=== PATIENT | female | born 1945 | race Caucasian/White ===

== ENCOUNTER → 2016-12-04 | Outpatient (CLI) | payer MEDICARE ==
--- NOTE | 2016-12-05 11:31 | MM ---
Reason for exam: screening (asymptomatic). Last mammogram was performed 1 year and 1 month ago. History: Patient is postmenopausal. Family history of breast cancer in maternal grandmother. Benign excisional biopsy of the left breast, March 14, 2000. 2 excisional biopsies of the left breast. Physical Findings: A clinical breast exam by your physician is recommended on an annual basis and results should be correlated with mammographic findings. MG 3D Screening Mammo W/Cad Bilateral CC and MLO view(s) were taken. Prior study comparison: October 25, 2015, bilateral MG 3d screening mammo w/cad. October 05, 2014, bilateral MG screening mammo w CAD. There are scattered fibroglandular densities. Finding #1: There is a 11 mm equal density (isodense), oval mass in the lower inner quadrant of the right breast. Finding #2: There are typically benign calcifications in the left breast. There is a chronic nodularity in the left breast. There are grouped calcifications in the lower inner left breast. Increase in size since October 25, 2015 and October 05, 2014. ASSESSMENT: Incomplete: need additional imaging evaluation, BI-RAD 0 RECOMMENDATION: Special view mammogram of both breasts. [facility] will attempt to contact patient to return for supplemental views.
== END | disposition home or self-care (01) ==
LOC: RADMAMWWP 10:53
PROVIDERS: ATTEND Internal Medicine
DX: Z12.31 Encounter for screening mammogram for malignant neoplasm of breast (principal); R92.2 Inconclusive mammogram
CPT/HCPCS: 77063; G0202

== ENCOUNTER → 2016-12-25 | Outpatient (CLI) | payer MEDICARE ==
--- NOTE | 2016-12-25 11:45 | MM ---
Reason for exam: additional evaluation requested from abnormal screening. Last mammogram was performed 1 month ago. History: Patient is postmenopausal. Family history of breast cancer in maternal grandmother. Benign excisional biopsy of the left breast, March 14, 2000. 2 excisional biopsies of the left breast, 1999. Physical Findings: Nurse Summary: 1 x 1cm nodule in the right breast at 5 o'clock (nurse ts). MG 3D Work Up W/Cad JAGDISH Bilateral ML view(s) were taken. Spot compression CC and spot compression ML view(s) were taken of the right breast. CC with magnification and ML with magnification view(s) were taken of the left breast. Prior study comparison: December 04, 2016, bilateral MG 3d screening mammo w/cad. October 25, 2015, bilateral MG 3d screening mammo w/cad. October 05, 2014, bilateral MG screening mammo w CAD. October 03, 2013, bilateral MG screening mammo w CAD. September 13, 2012, bilateral digital screening mammo w/CAD. August 25, 2011, bilateral digital screening mammo w/CAD. Finding: There are typically benign calcifications that have been sable over multiple exams. No significant changes in finding since December 04, 2016, October 25, 2015, August 25, 2011, October 05, 2014, October 03, 2013, and September 13, 2012. These results were verbally communicated with the patient and result sheet given to the patient on 12/25/16. ASSESSMENT: Benign, BI-RAD 2 RECOMMENDATION: Return to routine screening mammogram schedule for both breasts.
== END | disposition home or self-care (01) ==
LOC: RADMAMWWP 10:40
PROVIDERS: ATTEND Internal Medicine
DX: R92.8 Other abnormal and inconclusive findings on diagnostic imaging of breast (principal)
CPT/HCPCS: G0204; G0279

== ENCOUNTER 2017-06-03 10:03 | Inpatient (IN) | payer MEDICARE ==
[2017-06-03] MEDS ORDERED: SODIUM CHLORIDE 0.9% 1,000 ML IV STA (10:26)
[2017-06-03] MEDS ORDERED: IBUPROFEN 600 MG TAB PO STA (10:26)
[2017-06-03] MEDS: ACETAMINOPHEN TAB 500 MG TAB PO STA (10:33)
--- NOTE | 2017-06-03 10:33 | ED ---
General Adult HPI - General Chief complaint: Weakness Stated complaint: poss dehydration Time Seen by Provider: 06/03/17 10:05 Source: patient, RN notes reviewed Mode of arrival: ambulatory Limitations: no limitations - History of Present Illness Initial comments: This is a 71-year-old female presents emergency department with past medical history significant for uterine cancer. Patient states on Sunday she gets chemotherapy. Patient states since that time she's felt weak and lightheaded when she stands and just fatigued. Patient denies any specific area of pain. Patient denies headache patient denies numbness weakness. Patient denies chest pain palpitations difficulty breathing or shortness of breath. Patient denies any recent fever chills or cough. Patient denies abdominal pain patient denies nausea or vomiting patient states she does occasionally have some diarrhea however. - Related Data Home Medications Medication Instructions Recorded Confirmed Acetaminophen Tab [Tylenol Tab] 650 mg PO Q4H PRN 06/03/17 06/03/17 Calcium Carbonate/Vitamin D3 1 tab PO DAILY 06/03/17 06/03/17 [Calcium 600-Vit D3 400 Caplet] Lisinopril [Zestril] 20 mg PO DAILY 06/03/17 06/03/17 Loperamide [Imodium] 2 mg PO QID PRN 06/03/17 06/03/17 Multivitamins, Thera [Multivitamin 1 tab PO DAILY 06/03/17 06/03/17 (formulary)] Ondansetron [Zofran] 4 mg PO Q8HR PRN 06/03/17 06/03/17 Allergies Allergy/AdvReac Type Severity Reaction Status Date / Time Penicillins Allergy Rash/Hives Verified 06/03/17 10:20 Review of Systems ROS Statement: Those systems with pertinent positive or pertinent negative responses have been documented in the HPI. ROS Other: All systems not noted in ROS Statement are negative. Past Medical History Past Medical History: Cancer, Hypertension History of Any Multi-Drug Resistant Organisms: None Reported Past Surgical History: Cholecystectomy, Hernia Repair Past Psychological History: No Psychological Hx Reported Smoking Status: Never smoker Past Alcohol Use History: None Reported Past Drug Use History: None Reported General Exam - General Exam Comments Initial Comments: GENERAL: Patient is well-developed and well-nourished. Patient is nontoxic and well- hydrated and is in mild distress. ENT: Neck is soft and supple. No significant lymphadenopathy is noted. Oropharynx is clear. Moist mucous membranes. Neck has full range of motion without eliciting any pain. EYES: The sclera were anicteric and conjunctiva were pink and moist. Extraocular movements were intact and pupils were equal round and reactive to light. Eyelids were unremarkable. PULMONARY: Unlabored respirations. Good breath sounds bilaterally. No audible rales rhonchi or wheezing was noted. CARDIOVASCULAR: There is a regular rate and rhythm without any murmurs gallops or rubs. ABDOMEN: Soft and nontender with normal bowel sounds. No palpable organomegaly was noted. There is no palpable pulsatile mass. SKIN: Skin is clear with no lesions or rashes and otherwise unremarkable. NEUROLOGIC: Patient is alert and oriented x3. Cranial nerves II through XII are grossly intact. Motor and sensory are also intact. Normal speech, volume and content. Symmetrical smile. MUSCULOSKELETAL: Normal extremities with adequate strength and full range of motion. No lower extremity swelling or edema. No calf tenderness. LYMPHATICS: No significant lymphadenopathy is noted PSYCHIATRIC: Normal psychiatric evaluation. Limitations: no limitations Course Vital Signs 06/03/17 06/03/17 06/03/17 10:07 10:26 10:55 Temperature 98.7 F 100.6 F H Pulse Rate 70 Pulse Rate [ 82 Sitting] Pulse Rate [ 118 H Standing] Pulse Rate [ 74 Supine] Respiratory 16 Rate Blood Pressure 161/67 Blood Pressure 159/62 [Sitting] Blood Pressure 142/69 [Standing] Blood Pressure 180/83 [Supine] O2 Sat by Pulse 100 Oximetry 06/03/17 11:57 Temperature 97.8 F Pulse Rate 72 Pulse Rate [ Sitting] Pulse Rate [ Standing] Pulse Rate [ Supine] Respiratory 16 Rate Blood Pressure 171/86 Blood Pressure [Sitting] Blood Pressure [Standing] Blood Pressure [Supine] O2 Sat by Pulse 100 Oximetry Medical Decision Making - Medical Decision Making EKG shows a sinus rhythm at 77 bpm with an occasional PACs ND interval is 88 QRS is 60 QT interval 404 QTC is 457. Patient's EKG shows no ST segment elevation or depression or T wave abnormalities are noted patient had hypomagnesemia so I ordered 4 g of magnesium sulfate. Patient's calcium was also low so I gave the patient calcium chloride. Patient a urinary tract infectious I started the patient on Rocephin. I spoke with Dr. Pascual admitted the patient and I wrote admitting orders. - Lab Data Result diagrams: 06/03/17 10:46 06/03/17 10:46 Lab Results 06/03/17 06/03/17 06/03/17 Range/Units 10:46 10:46 10:46 WBC 2.4 L (3.8-10.6) k/uL RBC 3.09 L (3.80-5.40) m/uL Hgb 9.2 L (11.4-16.0) gm/dL Hct 27.8 L (34.0-46.0) % MCV 89.8 (80.0-100.0) fL MCH 29.9 (25.0-35.0) pg MCHC 33.3 (31.0-37.0) g/dL RDW 18.7 H (11.5-15.5) % Plt Count 80 L (150-450) k/uL Neutrophils % 86 % Lymphocytes % 5 % Monocytes % 6 % Eosinophils % 1 % Basophils % 0 % Neutrophils # 2.1 (1.3-7.7) k/uL Lymphocytes # 0.1 L (1.0-4.8) k/uL Monocytes # 0.1 (0-1.0) k/uL Eosinophils # 0.0 (0-0.7) k/uL Basophils # 0.0 (0-0.2) k/uL Anisocytosis Slight PT (9.0-12.0) sec INR (<1.2) APTT (22.0-30.0) sec Sodium 136 L (137-145) mmol/L Potassium 3.8 (3.5-5.1) mmol/L Chloride 94 L (98-107) mmol/L Carbon Dioxide 29 (22-30) mmol/L Anion Gap 13 mmol/L BUN 18 H (7-17) mg/dL Creatinine 1.11 H (0.52-1.04) mg/dL Est GFR (MDRD) Af Amer 58 (>60 ml/min/1.73 sqM) Est GFR (MDRD) Non-Af 48 (>60 ml/min/1.73 sqM) Glucose 129 H (74-99) mg/dL Plasma Lactic Acid Yo (0.7-2.0) mmol/L Calcium 6.8 L (8.4-10.2) mg/dL Magnesium <0.4 L* (1.6-2.3) mg/dL Total Bilirubin 0.5 (0.2-1.3) mg/dL AST 15 (14-36) U/L ALT 19 (9-52) U/L Alkaline Phosphatase 77 (38-126) U/L Total Creatine Kinase 84 (30-135) U/L CK-MB (CK-2) 0.8 (0.0-2.4) ng/mL CK-MB (CK-2) Rel Index 1.0 Troponin I 0.014 (0.000-0.034) ng/mL Total Protein 6.4 (6.3-8.2) g/dL Albumin 3.6 (3.5-5.0) g/dL Urine Color Urine Appearance (Clear) Urine pH (5.0-8.0) Ur Specific [place] (1.001-1.035) Urine Protein (Negative) Urine Glucose (UA) (Negative) Urine Ketones (Negative) Urine Blood (Negative) Urine Nitrite (Negative) Urine Bilirubin (Negative) Urine Urobilinogen (<2.0) mg/dL Ur Leukocyte Esterase (Negative) Urine RBC (0-5) /hpf Urine WBC (0-5) /hpf 06/03/17 06/03/17 06/03/17 Range/Units 10:46 10:46 11:46 WBC (3.8-10.6) k/uL RBC (3.80-5.40) m/uL Hgb (11.4-16.0) gm/dL Hct (34.0-46.0) % MCV (80.0-100.0) fL MCH (25.0-35.0) pg MCHC (31.0-37.0) g/dL RDW (11.5-15.5) % Plt Count (150-450) k/uL Neutrophils % % Lymphocytes % % Monocytes % % Eosinophils % % Basophils % % Neutrophils # (1.3-7.7) k/uL Lymphocytes # (1.0-4.8) k/uL Monocytes # (0-1.0) k/uL Eosinophils # (0-0.7) k/uL Basophils # (0-0.2) k/uL Anisocytosis PT 11.5 (9.0-12.0) sec INR 1.2 H (<1.2) APTT 20.3 L (22.0-30.0) sec Sodium (137-145) mmol/L Potassium (3.5-5.1) mmol/L Chloride (98-107) mmol/L Carbon Dioxide (22-30) mmol/L Anion Gap mmol/L BUN (7-17) mg/dL Creatinine (0.52-1.04) mg/dL Est GFR (MDRD) Af Amer (>60 ml/min/1.73 sqM) Est GFR (MDRD) Non-Af (>60 ml/min/1.73 sqM) Glucose (74-99) mg/dL Plasma Lactic Acid Yo 1.9 (0.7-2.0) mmol/L Calcium (8.4-10.2) mg/dL Magnesium (1.6-2.3) mg/dL Total Bilirubin (0.2-1.3) mg/dL AST (14-36) U/L ALT (9-52) U/L Alkaline Phosphatase (38-126) U/L Total Creatine Kinase (30-135) U/L CK-MB (CK-2) (0.0-2.4) ng/mL CK-MB (CK-2) Rel Index Troponin I (0.000-0.034) ng/mL Total Protein (6.3-8.2) g/dL Albumin (3.5-5.0) g/dL Urine Color Yellow Urine Appearance Cloudy H (Clear) Urine pH 8.0 (5.0-8.0) Ur Specific [place] 1.008 (1.001-1.035) Urine Protein 1+ H (Negative) Urine Glucose (UA) Trace H (Negative) Urine Ketones Negative (Negative) Urine Blood Moderate H (Negative) Urine Nitrite Negative (Negative) Urine Bilirubin Negative (Negative) Urine Urobilinogen <2.0 (<2.0) mg/dL Ur Leukocyte Esterase Large H (Negative) Urine RBC 51 H (0-5) /hpf Urine WBC 131 H (0-5) /hpf Disposition Clinical Impression: Orthostatic hypotension, Hypomagnesemia, Hypocalcemia Disposition: ADMITTED IP TO THIS [facility] Referrals: Yane De Los Santos MD [Primary Care Provider] - 1-2 days Time of Disposition: 12:50
[2017-06-03] MEDS ORDERED: ONDANSETRON ODT 4 MG TAB PO STA (10:38)
[2017-06-03 10:56] LABS: Anisocytosis Slight; Basophils % (A) 0 %; Eosinophils % (A) 1 %; HCT 27.8 % (34.0-46.0); HGB 9.2 gm/dL (11.4-16.0); Lymphocytes # (A) 0.1 k/uL (1.0-4.8); Lymphocytes % (A) 5 %; MCH 29.9 pg (25.0-35.0); MCHC 33.3 g/dL (31.0-37.0); MCV 89.8 fL (80.0-100.0); Mean Platelet Volume 7.8; Monocytes # (A) 0.1 k/uL (0-1.0); Monocytes % (A) 6 %; Neutrophils # (A) 2.1 k/uL (1.3-7.7); Neutrophils % (A) 86 %; RBC 3.09 m/uL (3.80-5.40); RDW 18.7 % (11.5-15.5); WBC 2.4 k/uL (3.8-10.6)
[2017-06-03 11:09] LABS: INR 1.2 (<1.2); Prothrombin Time 11.5 sec (9.0-12.0)
[2017-06-03 11:11] LABS: ALT 19 U/L (9-52); AST 15 U/L (14-36); Albumin 3.6 g/dL (3.5-5.0); Alkaline Phosphatase 77 U/L (38-126); Anion Gap 13 mmol/L; Blood Urea Nitrogen 18 mg/dL (7-17); Calcium 6.8 mg/dL (8.4-10.2); Carbon Dioxide 29 mmol/L (22-30); Chloride 94 mmol/L (98-107); Glucose 129 mg/dL (74-99); Potassium 3.8 mmol/L (3.5-5.1); Sodium 136 mmol/L (137-145); Total Bilirubin 0.5 mg/dL (0.2-1.3); Total Protein 6.4 g/dL (6.3-8.2)
[2017-06-03 11:16] LABS: Partial Thromboplastin Time 20.3 sec (22.0-30.0); Platelet Count 80 k/uL (150-450)
--- NOTE | 2017-06-03 11:17 | XR ---
EXAMINATION TYPE: XR chest 2V DATE OF EXAM: 06/03/2017 COMPARISON: 10/30/2009 INDICATION: Dizziness weakness TECHNIQUE: Frontal and lateral views of the chest are obtained. FINDINGS: The heart size is prominent.. The pulmonary vasculature is normal. The lungs are clear. IMPRESSION: 1. Cardiomegaly. 2. No acute pulmonary process radiographically apparent.
[2017-06-03] MEDS ORDERED: CALCIUM CHLORIDE 100 MG/ML 10 ML SYRINGE IVP STA (11:27)
[2017-06-03 11:29] LABS: Magnesium <0.4 mg/dL (1.6-2.3)
[2017-06-03 11:33] LABS: Creatine Kinase MB 0.8 ng/mL (0.0-2.4); Troponin I 0.014 ng/mL (0.000-0.034)
[2017-06-03] MEDS: MAGNESIUM SULFATE-D5W PMX 1 GM in DEXTROSE/WATER 1 100ML.BAG IVPB SCH ×4 (11:48→17:10)
[2017-06-03 12:22] LABS: Appearance,Urine Cloudy (Clear); Bilirubin,Urine Negative (Negative); Blood,Urine Moderate (Negative); Color,Urine Yellow; Glucose,Urine (UA) Trace (Negative); Ketones,Urine Negative (Negative); Leukocyte Esterase,Urine Large (Negative); Nitrite,Urine Negative (Negative); Protein,Urine 1+ (Negative); RBC,Urine 51 /hpf (0-5); Specific Gravity,Urine 1.008 (1.001-1.035); Urobilinogen,Urine <2.0 mg/dL (<2.0); WBC,Urine 131 /hpf (0-5)
[2017-06-03] MEDS ORDERED: cefTRIAXone IN SWFI 1,000 MG/10 ML SYRINGE IVP STA (12:26)
[2017-06-03] MEDS ORDERED: SODIUM CHLORIDE 0.9% 1,000 ML IV ONE (12:50)
[2017-06-03 16:50] VITALS: BMI 38.0
[2017-06-03] MEDS ORDERED: LOPERAMIDE 2 MG CAP PO PRN (18:28)
[2017-06-03] MEDS ORDERED: ACETAMINOPHEN TAB 325 MG TAB PO PRN (18:28)
[2017-06-04] MEDS ORDERED: Magnesium Replacement Protocol 1 EACH MISC MISCELLANE PRN (05:18)
[2017-06-04] MEDS: MAGNESIUM SULFATE-D5W PMX 1 GM in DEXTROSE/WATER 1 100ML.BAG IVPB SCH ×4 (06:42→23:29)
[2017-06-04] MEDS: CALCIUM CARB-VIT D 500MG-200UN 1 EACH TAB PO SCH (09:03)
[2017-06-04] MEDS: LISINOPRIL 20 MG TAB PO SCH (09:03)
[2017-06-04] MEDS: MULTIVITAMINS, THERA 1 EACH TAB PO SCH (09:05)
--- NOTE | 2017-06-04 13:34 | P.HPIM ---
History of Present Illness H&P Date: 06/04/17 Chief Complaint: Debility, severe hypomagnesemia, severe hypocalcemia, dehydration, history 71-year-old female one of Dr. De Los Santos with patient with past medical history of cervical/uterine cancer was diagnosed recently with Dr. De Los Santos with was referred to Dr. Pena of her and referred to [facility] who decided for her best interest to go for radiation and some sort of chemotherapy. Patient has been doing chemotherapy with for the last few weeks. She had her last chemotherapy last week developed to have nausea with vomiting decreased appetite and generalized fatigue tiredness and overall not feeling well. Ended up coming to the emergency department not been able to eat or drink anything and having severe diarrhea for the last 2 weeks was seen and evaluated surprisingly her calcium magnesium level were very low patient was mildly dehydrated had significant orthostatic hypotension patient also her urine test was abnormal and with her diarrhea suspicious for C. diff. Patient was started on hydration electrolyte balance correction and admit patient to the hospital with the above problem. Review of Systems Constitutional: Reports anorexia, Reports chronic pain, Reports fatigue, Reports lethargy, Reports malaise, Reports weight loss, Denies as per HPI, Denies chills, Denies chronic headaches, Denies daytime sleepiness, Denies fever , Denies night sweats, Denies poor appetite, Denies sweats, Denies weakness, Denies weight gain Eyes: bilateral as per HPI Ears: bilateral: decreased hearing Ears, nose, mouth and throat: Reports ant. neck pain, Reports headache, Reports nasal discharge, Reports nose pain, Reports sinus pressure, Denies as per HPI, Denies bleeding gums, Denies dental pain, Denies dysphagia, Denies epistaxis, Denies hoarseness, Denies mouth pain, Denies nasal congestion, Denies neck fullness/pressure, Denies neck lump, Denies odynophagia, Denies post-nasal drip , Denies sinus pain, Denies swelling in mouth, Denies swelling in throat, Denies sore throat, Denies vertigo, Denies voice changes Cardiovascular: Reports dyspnea on exertion, Reports edema, Reports orthopnea, Reports palpitations, Reports paroxysmal nocturnal dyspnea, Reports rapid heart beat, Denies as per HPI, Denies chest pain, Denies claudication, Denies decreased exercise tolerance, Denies high blood pressure, Denies irregular heart beat, Denies leg edema, Denies lightheadedness, Denies phlebitis, Denies shortness of breath, Denies syncope Respiratory: Reports congestion, Reports dyspnea, Denies as per HPI, Denies cough, Denies cough with sputum, Denies excessive sputum, Denies hemoptysis, Denies home oxygen, Denies pain, Denies pain on inspiration, Denies pleurisy, Denies respiratory infections, Denies sleep apnea, Denies snoring, Denies wheezing Gastrointestinal: Reports abdominal pain, Reports belching, Reports bloating, Reports diarrhea, Reports dyspepsia, Reports nausea, Denies as per HPI, Denies BRBPR, Denies change in bowel habits, Denies coffee ground emesis, Denies constipation, Denies early satiety, Denies excessive gas, Denies heartburn, Denies hematemesis, Denies hematochezia, Denies indigestion, Denies jaundice, Denies lactose intolerance, Denies loss of appetite, Denies melena, Denies vomiting Genitourinary: Reports dysuria, Reports pelvic pain, Reports urgency, Reports urinary frequency, Denies as per HPI, Denies abnormal vaginal bleeding, Denies decreased libido, Denies difficulty conceiving, Denies difficulty voiding, Denies dysmenorrhea, Denies dyspareunia, Denies flank pain, Denies genital sores , Denies hematuria, Denies hot flashes, Denies incomplete emptying, Denies kidney stones, Denies menorrhagia, Denies mixed incontinence, Denies nocturia, Denies post void dribbling, Denies , Denies prolapse symptoms, Denies stress incontinence, Denies urge incontinence, Denies vaginal discharge, Denies vaginal dryness, Denies vaginal itching, Denies vaginal odor Musculoskeletal: Reports low back pain, Reports myalgias, Reports neck pain, Reports neck stiffness, Denies as per HPI, Denies arm numbness/tingling, Denies atrophy, Denies fractures, Denies frequent falls, Denies gait dysfunction, Denies hot joints, Denies leg numbness/tingling, Denies limitation of motion, Denies loss of height, Denies morning stiffness, Denies muscle cramps, Denies muscle weakness, Denies prior amputations, Denies redness of joints, Denies shooting arm pain, Denies shooting leg pain Integumentary: Reports dryness, Reports pruritus, Reports rash, Denies as per HPI, Denies acne, Denies boils, Denies brittle nails, Denies change in hair/ nails, Denies color changes, Denies darkening of skin, Denies depigmentation, Denies foot/leg ulcers, Denies growths, Denies hirsutism, Denies lesions, Denies onychomycosis, Denies sores, Denies striae, Denies unusual bruising, Denies wounds Neurological: Reports aphasia, Reports ataxia, Reports burning pain, Reports headaches, Reports numbness, Reports paresthesias, Reports spasticity, Reports tingling, Reports tremors, Reports weakness, Denies as per HPI, Denies balance difficulties, Denies change in mentation, Denies change in smell/taste, Denies change in speech, Denies confusion, Denies convulsions, Denies double vision, Denies gait dysfunction, Denies head injury, Denies hearing difficulties, Denies lack of coordination, Denies loss of vision, Denies memory loss, Denies migraines, Denies motor disturbance, Denies paralysis, Denies seizures, Denies sensory deficit, Denies syncope, Denies tic, Denies transient paralysis, Denies vertigo, Denies visual changes Psychiatric: Reports anhedonia, Reports anxiety, Reports depression, Denies as per HPI, Denies anxiety attacks, Denies change in appetite, Denies change in libido, Denies change in sleep habits, Denies confusion, Denies difficulty concentrating, Denies disorientation, Denies hallucinations, Denies hopelessness , Denies hypersomnia, Denies insomnia, Denies irritability, Denies memory loss, Denies mood swings, Denies paranoia, Denies sadness/tearfulness, Denies sleep disturbances, Denies suicidal ideation Endocrine: Reports cold intolerance, Reports fatigue, Reports nocturia, Reports polyuria, Denies as per HPI, Denies deepening of the voice, Denies excessive sweating, Denies excessive thirst, Denies flushing, Denies heat intolerance, Denies high blood sugars, Denies increase in ring/shoe/hat size, Denies low blood sugars, Denies palpitations, Denies polydipsia, Denies polyphagia, Denies proptosis, Denies recent glucocorticoid use, Denies thyroid mass, Denies weight change Hematologic/Lymphatic: Reports easy bruising, Denies as per HPI, Denies easy bleeding, Denies lymphadenopathy, Denies lymphedema, Denies thrombophilia Allergic/Immunologic: Reports allergic rhinitis, Denies as per HPI, Denies anaphylaxis, Denies angioedema, Denies gluten intolerance, Denies persistent infections, Denies seasonal allergies, Denies urticaria, Denies wheezing Past Medical History Past Medical History: Cancer, Hypertension History of Any Multi-Drug Resistant Organisms: None Reported Past Surgical History: Cholecystectomy, Hernia Repair Smoking Status: Never smoker Medications and Allergies Home Medications Medication Instructions Recorded Confirmed Type Acetaminophen Tab [Tylenol Tab] 650 mg PO Q4H PRN 06/03/17 06/03/17 History Calcium Carbonate/Vitamin D3 1 tab PO DAILY 06/03/17 06/03/17 History [Calcium 600-Vit D3 400 Caplet] Lisinopril [Zestril] 20 mg PO DAILY 06/03/17 06/03/17 History Loperamide [Imodium] 2 mg PO QID PRN 06/03/17 06/03/17 History Multivitamins, Thera [Multivitamin 1 tab PO DAILY 06/03/17 06/03/17 History (formulary)] Ondansetron [Zofran] 4 mg PO Q8HR PRN 06/03/17 06/03/17 History Allergies Allergy/AdvReac Type Severity Reaction Status Date / Time Penicillins Allergy Rash/Hives Verified 06/03/17 10:20 Physical Exam Vitals: Vital Signs Temp Pulse Pulse Pulse Pulse Resp BP 06/04/17 11:53 79 18 06/04/17 08:40 97.6 F 75 75 74 17 06/04/17 04:00 97.9 F 71 18 06/04/17 00:00 97.0 F L 75 18 06/03/17 20:00 97.4 F L 77 90 18 06/03/17 17:27 98 F 90 16 06/03/17 16:34 98 F 71 16 06/03/17 14:25 98.0 F 74 18 152/72 BP BP Pulse Ox 06/04/17 11:53 142/59 95 06/04/17 08:40 150/76 98 06/04/17 04:00 147/70 97 06/04/17 00:00 134/53 96 06/03/17 20:00 150/86 97 06/03/17 17:27 144/71 144/71 98 06/03/17 16:34 98 06/03/17 14:25 100 Intake and Output 06/03/17 06/04/17 06/04/17 22:59 06:59 14:59 Intake Total 700 180 Output Total 500 250 Balance 200 -250 180 Intake: Intake, IV Titration 300 Amount Magnesium Sulfate-D5w Pmx 100 1 gm In Dextrose/Water 1 100ml.bag @ 100 mls/hr IVPB Q1H [facility] Rx#: [id number] Sodium Chloride 0.9% 1, 200 000 ml @ 100 mls/hr IV . Q10H [facility] Rx#:[id number] Oral 400 180 Output: Urine 500 250 Other: Voiding Method Toilet Toilet Toilet # Voids 1 1 1 Weight 97.5 kg 97.5 kg 97.5 kg Patient Weight 06/05/17 06:59 Weight 97.5 kg - Constitutional General appearance: no average body habitus, cooperative, no disheveled, no mild distress, no morbidly obese, no acute distress, no obese, no severe distress, no thin - EENT Eyes: abnormal pupil, no anicteric sclerae, no disc margins sharp, no edentulous , no EOMI, no PERRLA, no fundus normal, no photophobia, no dentition normal, no poor dentition, no ptosis, no scleral icterus, no normal appearance ENT: no hard of hearing, no hearing grossly normal, no NA/AT, normal oropharynx , no other, no pharyngeal erythema, no thrush, no tonsillar exudates, no tonsillar swelling Ears: bilateral: normal, bulging - Neck Neck: no lymphadenopathy, normal ROM, no other, no rigidity, no stridor, no thyromegaly Carotids: bilateral: upstroke normal Thyroid: bilateral: normal size - Respiratory Respiratory: bilateral: CTA, diminished - Cardiovascular Rhythm: regular Heart sounds: normal: S1, S2 - Gastrointestinal General gastrointestinal: no absent bowel sounds, decreased bowel sounds, distended, hepatomegaly, no hyperactive bowel sounds, no normal bowel sounds, no organomegaly, no rigid, no scaphoid, soft, no splenomegaly, no tenderness, no umbilical hernia, no ventral hernia - Integumentary Integumentary: no calor, no cellulitis, no cyanotic, no decreased turgor, no flushed, no jaundiced, normal, no normal turgor, pale, rash, no ulcer - Neurologic Neurologic: CNII-XII intact - Musculoskeletal Musculoskeletal: gait normal, generalized weakness, strength equal bilaterally, no right sided weakness, no left sided weakness - Psychiatric Psychiatric: A&O x's 3, appropriate affect Results CBC & Chem 7: 06/03/17 10:46 06/03/17 10:46 Labs: Abnormal Lab Results - Last 24 Hours (Table) 06/04/17 Range/Units 03:44 Magnesium 1.4 L (1.6-2.3) mg/dL Microbiology - Last 24 Hours (Table) 06/03/17 10:46 Blood Culture - Preliminary Blood No Growth after 24 hours Thrombosis Risk Factor Assmnt - DVT/VTE Prophylaxis DVT/VTE Prophylaxis: Pharmacologic Prophylaxis ordered, Mechanical Prophylaxis ordered - Choose All That Apply Any of the Below Risk Factors Present?: No Each Risk Factor Represents 2 Points: Age 61-74 years Other congenital or acquired thrombophilia - If yes, enter type in comment: No Thrombosis Risk Factor Assessment Total Risk Factor Score: 2 Thrombosis Risk Factor Assessment Level: Low Risk Assessment and Plan Assessment: 1 severe debility: Combination of hypomagnesemia/hypocalcemia, pancytopenia and UTI. With her diarrhea she can have C. diff which can be a big contributing factor try to treat underlying disease and watch symptoms closely. 2 pancytopenia: With no sign of neutropenia currently this is most likely side effect from chemotherapy repeat CBC and watch for any infection. 3 severe dehydration: With mildly elevated bun and creatinine ratio along with orthostatic hypotension, continue hydration. 4 sepsis with UTI: UA was positive, lactic acid was marginal but patient is pancytopenic which can give you the opposite reaction, continue patient on current antibiotic which is Rocephin until her final culture completed. 5 severe diarrhea: With her comorbidity illnesses high chance to been C. diff, C. diff culture will be done and treated if needed. 6 advanced stage III uterine cancer: Patient is doing chemotherapy with oncology. 7 hypertension: Has been on Zestril 20 mg daily. 8 GI prophylaxis: Patient will be on Pepcid 20 mg daily. 9 DVT prophylaxis: Patient will be on heparin 5000 units subcutaneous twice a day. CODE STATUS: Full code. Admit patient to inpatient status for more than 2 nights.
[2017-06-04] MEDS: cefTRIAXone IN SWFI 1,000 MG/10 ML SYRINGE IVP SCH (13:41)
--- NOTE | 2017-06-04 17:10 | P.CONS ---
History of Present Illness - Reason for Consult Consult date: 06/04/17 Uterine cancer Requesting physician: Issac Cox - Chief Complaint weakness, dehydration - History of Present Illness Ms. Puente is a very pleasant female pt of Dr. Garcai who initially presented to PCP Dr. De Los Santos in Mar 2017 with c/o frequent UTI' s and lower pelvic pressure, PAP was reported "abnormal", referred to Dr. Pena for cervial, endocervix and endometrium biopsies, all revealed adenocarcinoma. Pt referred to [facility] Dr. Maral Reyes. On evaluation it was concerning that pt had suspect right pelvic side wall involvement, staged III-B. Recommendation was to have to treat with concurrent Radiation/Chemotherapy, she completed 6 weekly cisplatin treatments last week, she has 4 more radiation treatments left. Pt was feeling progressively weaker over the last 3 days, appetite declined with poor oral intake, she also was having intermittent diarrhea and UTI symptoms of dysuria. She has occasional vaginal bleeding, better then in the past, she had fever on admit, none since, mild oral irritation, no cough, nausea , vomiting, swelling or acute/uncontrolled pain to report. Review of Systems 10 point ROS as stated in HPI Past Medical History Past Medical History: Cancer, Hypertension History of Any Multi-Drug Resistant Organisms: None Reported Past Surgical History: Cholecystectomy, Hernia Repair Past Psychological History: No Psychological Hx Reported Smoking Status: Never smoker Past Alcohol Use History: None Reported Past Drug Use History: None Reported - Past Family History Sister(s) Family Medical History: Cancer (gastric) Additional Family Medical History / Comment(s): Maternal grandmother breast cancer, maternal grandfather colon cancer Medications and Allergies Home Medications Medication Instructions Recorded Confirmed Type Acetaminophen Tab [Tylenol Tab] 650 mg PO Q4H PRN 06/03/17 06/03/17 History Calcium Carbonate/Vitamin D3 1 tab PO DAILY 06/03/17 06/03/17 History [Calcium 600-Vit D3 400 Caplet] Lisinopril [Zestril] 20 mg PO DAILY 06/03/17 06/03/17 History Loperamide [Imodium] 2 mg PO QID PRN 06/03/17 06/03/17 History Multivitamins, Thera [Multivitamin 1 tab PO DAILY 06/03/17 06/03/17 History (formulary)] Ondansetron [Zofran] 4 mg PO Q8HR PRN 06/03/17 06/03/17 History Allergies Allergy/AdvReac Type Severity Reaction Status Date / Time Penicillins Allergy Rash/Hives Verified 06/03/17 10:20 Physical Exam Vitals: Vital Signs Temp Pulse Pulse Pulse Resp BP BP 06/04/17 15:00 98 F 90 16 164/73 06/04/17 11:53 79 18 142/59 06/04/17 08:40 97.6 F 75 75 74 17 150/76 06/04/17 04:00 97.9 F 71 18 147/70 06/04/17 00:00 97.0 F L 75 18 134/53 06/03/17 20:00 97.4 F L 77 90 18 150/86 06/03/17 17:27 98 F 90 16 144/71 144/71 Pulse Ox 06/04/17 15:00 99 06/04/17 11:53 95 06/04/17 08:40 98 06/04/17 04:00 97 06/04/17 00:00 96 06/03/17 20:00 97 06/03/17 17:27 98 Intake and Output 06/04/17 06/04/17 06/04/17 06:59 14:59 22:59 Intake Total 1030 Output Total 250 Balance -250 1030 Intake: Intake, IV Titration 450 Amount Magnesium Sulfate-D5w Pmx 300 1 gm In Dextrose/Water 1 100ml.bag @ 100 mls/hr IVPB Q1H [facility] Rx#: [id number] Sodium Chloride 0.9% 1, 150 000 ml @ 100 mls/hr IV . Q10H [facility] Rx#:[id number] Oral 580 Output: Urine 250 Other: Voiding Method Toilet Toilet Toilet # Voids 1 1 Weight 97.5 kg 97.5 kg Patient Weight 06/05/17 06:59 Weight 97.5 kg - Constitutional General appearance: average body habitus, cooperative, no acute distress - EENT Eyes: anicteric sclerae, PERRLA, normal appearance ENT: hearing grossly normal, normal oropharynx - Neck Neck: no lymphadenopathy - Respiratory Respiratory: bilateral: CTA - Cardiovascular Rhythm: regular Heart sounds: normal: S1, S2 Abnormal Heart Sounds: no systolic murmur, no diastolic murmur, no rub, no S3 Gallop, no S4 Gallop, no click, no other leg Peripheral Edema: bilateral: None - Gastrointestinal General gastrointestinal: no absent bowel sounds, no decreased bowel sounds, no distended, no hepatomegaly, no hyperactive bowel sounds, normal bowel sounds, no organomegaly, no rigid, no scaphoid, soft, no splenomegaly, no tenderness, no umbilical hernia, no ventral hernia - Integumentary Integumentary: pale - Neurologic Neurologic: CNII-XII intact - Musculoskeletal Musculoskeletal: strength equal bilaterally - Psychiatric Psychiatric: A&O x's 3, appropriate affect, intact judgment & insight Results CBC & Chem 7: 06/03/17 10:46 06/03/17 10:46 Labs: Abnormal Lab Results - Last 24 Hours (Table) 06/04/17 Range/Units 03:44 Magnesium 1.4 L (1.6-2.3) mg/dL Microbiology - Last 24 Hours (Table) 06/03/17 10:46 Blood Culture - Preliminary Blood No Growth after 24 hours Chest x-ray: report reviewed Assessment and Plan (1) Dehydration Narrative/Plan: Pt is receiving hydration, diarrhea is being treated, pt oral fluid intake encouraged Current Visit: Yes Status: Acute Priority: High Code(s): E86.0 - DEHYDRATION SNOMED Code(s): 11357113 (2) Hypomagnesemia Narrative/Plan: Mag replacement, likely associated cisplatin treatment, exacerbated with dehydration and diarrhea. Replacement protocol in place Current Visit: Yes Status: Acute Priority: High Code(s): E83.42 - HYPOMAGNESEMIA SNOMED Code(s): 497654443 (3) Hypocalcemia Narrative/Plan: Ca++ supplement ordered Current Visit: Yes Status: Acute Priority: High Code(s): E83.51 - HYPOCALCEMIA SNOMED Code(s): 7376703 (4) Pancytopenia due to antineoplastic chemotherapy Narrative/Plan: Due to chemo, pt is s/p final cycle of chemo, no acute intervention needed, CBC daily as kris has not been reached. Current Visit: Yes Status: Acute Priority: High Code(s): D61.810 - ANTINEOPLASTIC CHEMOTHERAPY INDUCED PANCYTOPENIA; T45.1X5A - ADVERSE EFFECT OF ANTINEOPLASTIC AND IMMUNOSUP DRUGS, INIT SNOMED Code(s): 822076444093885 (5) Endometrial/uterine adenocarcinoma Narrative/Plan: Needs to complete radiation, will inform Rad/Onc of pt admit, will likely hold for now for pt to recover a bit. Current Visit: Yes Status: Acute Code(s): C54.9 - MALIGNANT NEOPLASM OF CORPUS UTERI, UNSPECIFIED SNOMED Code(s): 311882814
[2017-06-05] MEDS: MAGNESIUM SULFATE-D5W PMX 1 GM in DEXTROSE/WATER 1 100ML.BAG IVPB SCH ×3 (00:29→13:40)
[2017-06-05 07:42] LABS: Anisocytosis Slight; Basophils % (A) 0 %; Eosinophils % (A) 0 %; HCT 23.8 % (34.0-46.0); Lymphocytes # (A) 0.3 k/uL (1.0-4.8); Lymphocytes % (A) 10 %; MCH 30.4 pg (25.0-35.0); MCHC 33.7 g/dL (31.0-37.0); Monocytes # (A) 0.2 k/uL (0-1.0); Monocytes % (A) 9 %; Neutrophils # (A) 1.9 k/uL (1.3-7.7); Neutrophils % (A) 76 %; RBC 2.64 m/uL (3.80-5.40); RDW 18.1 % (11.5-15.5); WBC 2.5 k/uL (3.8-10.6)
[2017-06-05 07:47] LABS: Platelet Count 94 k/uL (150-450)
[2017-06-05 07:58] LABS: ALT 18 U/L (9-52); AST 12 U/L (14-36); Albumin 3.3 g/dL (3.5-5.0); Alkaline Phosphatase 83 U/L (38-126); Anion Gap 11 mmol/L; Blood Urea Nitrogen 17 mg/dL (7-17); Calcium 7.9 mg/dL (8.4-10.2); Carbon Dioxide 27 mmol/L (22-30); Chloride 99 mmol/L (98-107); Glucose 105 mg/dL (74-99); Magnesium 1.7 mg/dL (1.6-2.3); Potassium 3.2 mmol/L (3.5-5.1); Sodium 137 mmol/L (137-145); Total Bilirubin 0.2 mg/dL (0.2-1.3)
[2017-06-05] MEDS: LISINOPRIL 20 MG TAB PO SCH (08:39)
[2017-06-05] MEDS: CALCIUM CARB-VIT D 500MG-200UN 1 EACH TAB PO SCH (08:39)
[2017-06-05] MEDS: FAMOTIDINE 20 MG TAB PO SCH (08:39)
[2017-06-05] MEDS: DIPHENOX-ATROP 2.5-0.025 MG 1 EACH TAB PO SCH ×3 (11:59→23:48)
[2017-06-05] MEDS: cefTRIAXone IN SWFI 1,000 MG/10 ML SYRINGE IVP SCH (11:59)
[2017-06-05] MEDS: POTASSIUM CHLORIDE ER 20 MEQ TAB.ER PO SCH ×2 (12:00→13:41)
[2017-06-05] MEDS: MULTIVITAMINS, THERA 1 EACH TAB PO SCH (12:01)
--- NOTE | 2017-06-05 14:35 | P.PN ---
Subjective Progress Note Date: 06/05/17 71-year-old female one of Dr. De Los Santos with patient with past medical history of cervical/uterine cancer was diagnosed recently with Dr. De Los Santos with was referred to Dr. Pena of her and referred to [facility] oncology who decided for her best interest to go for radiation and some sort of chemotherapy. Patient has been doing chemotherapy with Dr. Garcia for the last few weeks. She had her last chemotherapy last week developed to have nausea with vomiting decreased appetite and generalized fatigue tiredness and overall not feeling well. Ended up coming to the emergency department not been able to eat or drink anything and having severe diarrhea for the last 2 weeks was seen and evaluated surprisingly her calcium magnesium level were very low patient was mildly dehydrated had significant orthostatic hypotension patient also her urine test was abnormal and with her diarrhea suspicious for C. diff. Patient was started on hydration electrolyte balance correction and admit patient to the hospital with the above problem. 06/05: Patient is followed by oncology during this hospitalization. She is scheduled for radiation treatment today. Telemetry will be discontinued. Potassium and magnesium will be replaced. Patient is been started on Lomotil. C. diff and stool studies are negative. Patient is on ceftriaxone for urinary tract infection but urine culture was not obtained. This will be requested now. Objective - Vital Signs Vital signs: Vital Signs Temp 97.9 F 06/05/17 07:00 Pulse 87 06/05/17 07:00 Resp 18 06/05/17 07:00 BP 163/69 06/05/17 07:00 Pulse Ox 97 06/05/17 07:00 Intake & Output 06/04/17 06/05/17 06/05/17 18:59 06:59 18:59 Intake Total 1030 440 Balance 1030 440 Weight 97.5 kg Intake: Intake, IV Titration 450 200 Amount Magnesium Sulfate-D5w Pmx 300 1 gm In Dextrose/Water 1 100ml.bag @ 100 mls/hr IVPB Q1H [facility] Rx#: [id number] Magnesium Sulfate-D5w Pmx 200 1 gm In Dextrose/Water 1 100ml.bag @ 100 mls/hr IVPB Q1H [facility] Rx#: [id number] Sodium Chloride 0.9% 1, 150 000 ml @ 100 mls/hr IV . Q10H [facility] Rx#:[id number] Oral 580 240 Other: Voiding Method Toilet Toilet Toilet # Voids 1 2 # Bowel Movements 2 - Exam General appearance: no average body habitus, cooperative, no disheveled, no mild distress, no morbidly obese, no acute distress, no obese, no severe distress, no thin - EENT Eyes: abnormal pupil, no anicteric sclerae, no disc margins sharp, no edentulous , no EOMI, no PERRLA, no fundus normal, no photophobia, no dentition normal, no poor dentition, no ptosis, no scleral icterus, no normal appearance ENT: no hard of hearing, no hearing grossly normal, no NA/AT, normal oropharynx , no other, no pharyngeal erythema, no thrush, no tonsillar exudates, no tonsillar swelling Ears: bilateral: normal, bulging - Neck Neck: no lymphadenopathy, normal ROM, no other, no rigidity, no stridor, no thyromegaly Carotids: bilateral: upstroke normal Thyroid: bilateral: normal size - Respiratory Respiratory: bilateral: CTA, diminished - Cardiovascular Rhythm: regular Heart sounds: normal: S1, S2 - Gastrointestinal General gastrointestinal: no absent bowel sounds, decreased bowel sounds, distended, hepatomegaly, no hyperactive bowel sounds, no normal bowel sounds, no organomegaly, no rigid, no scaphoid, soft, no splenomegaly, no tenderness, no umbilical hernia, no ventral hernia - Integumentary Integumentary: no calor, no cellulitis, no cyanotic, no decreased turgor, no flushed, no jaundiced, normal, no normal turgor, pale, rash, no ulcer - Neurologic Neurologic: CNII-XII intact - Musculoskeletal Musculoskeletal: gait normal, generalized weakness, strength equal bilaterally, no right sided weakness, no left sided weakness - Psychiatric Psychiatric: A&O x's 3, appropriate affect - Labs CBC & Chem 7: 06/05/17 07:10 06/05/17 07:10 Labs: Abnormal Lab Results - Last 24 Hours (Table) 06/04/17 06/05/17 06/05/17 Range/Units 19:42 07:10 07:10 WBC 2.5 L (3.8-10.6) k/uL RBC 2.64 L (3.80-5.40) m/uL Hgb 8.0 L (11.4-16.0) gm/dL Hct 23.8 L (34.0-46.0) % RDW 18.1 H (11.5-15.5) % Plt Count 94 L (150-450) k/uL Lymphocytes # 0.3 L (1.0-4.8) k/uL Potassium 3.2 L (3.5-5.1) mmol/L Glucose 105 H (74-99) mg/dL Calcium 7.9 L (8.4-10.2) mg/dL Magnesium 1.5 L (1.6-2.3) mg/dL AST 12 L (14-36) U/L Total Protein 6.0 L (6.3-8.2) g/dL Albumin 3.3 L (3.5-5.0) g/dL Microbiology - Last 24 Hours (Table) 06/04/17 19:00 Stool for WBCs - Final Stool 06/04/17 19:00 Stool Culture - Preliminary Stool 06/03/17 10:46 Blood Culture - Preliminary Blood No Growth after 24 hours Assessment and Plan Plan: 1 severe debility: Combination of hypomagnesemia/hypocalcemia, pancytopenia and UTI. With her diarrhea she can have C. diff which can be a big contributing factor try to treat underlying disease and watch symptoms closely. 2 pancytopenia: With no sign of neutropenia currently this is most likely side effect from chemotherapy repeat CBC and watch for any infection. 3 severe dehydration: With mildly elevated bun and creatinine ratio along with orthostatic hypotension, continue hydration. 4 sepsis with UTI: UA was positive, lactic acid was marginal but patient is pancytopenic which can give you the opposite reaction, continue patient on current antibiotic which is Rocephin until her final culture completed. 5 severe diarrhea: Testing negative so far. 6 advanced stage III uterine cancer: Patient is doing chemotherapy with oncology. 7 hypertension: Has been on Zestril 20 mg daily. 8 GI prophylaxis: Patient will be on Pepcid 20 mg daily. 9 DVT prophylaxis: Patient will be on heparin 5000 units subcutaneous twice a day. CODE STATUS: Full code. Discharge plan: Return home. Impression and plan of care have been directed as dictated by the signing physician. Sophie Lopez nurse practitioner acting as scribe for signing physician.
--- NOTE | 2017-06-05 17:53 | P.PN ---
Subjective Progress Note Date: 06/05/17 Principal diagnosis: weakness and dehydration secondary to chemo Pt seen today in follow up, she continues to have liquid stool, c-diff has returned negative, she is tolerating oral intake, denies oral irritation, cough , mild abd cramping with diarrhea but no unrealistic pain, no dysuria, black, bloody or mucoid stool, she is ambulating Objective - Vital Signs Vital signs: Vital Signs Temp 98.4 F 06/05/17 15:00 Pulse 74 06/05/17 15:00 Resp 18 06/05/17 15:00 BP 141/64 06/05/17 15:00 Pulse Ox 98 06/05/17 15:00 Intake & Output 06/04/17 06/05/17 06/05/17 18:59 06:59 18:59 Intake Total 1030 440 200 Balance 1030 440 200 Weight 97.5 kg 97.5 kg Intake: Intake, IV Titration 450 200 200 Amount Magnesium Sulfate-D5w Pmx 300 1 gm In Dextrose/Water 1 100ml.bag @ 100 mls/hr IVPB Q1H [facility] Rx#: [id number] Magnesium Sulfate-D5w Pmx 200 1 gm In Dextrose/Water 1 100ml.bag @ 100 mls/hr IVPB Q1H [facility] Rx#: [id number] Magnesium Sulfate-D5w Pmx 200 1 gm In Dextrose/Water 1 100ml.bag @ 100 mls/hr IVPB Q1H [facility] Rx#: [id number] Sodium Chloride 0.9% 1, 150 000 ml @ 100 mls/hr IV . Q10H [facility] Rx#:[id number] Oral 580 240 Other: Voiding Method Toilet Toilet Toilet # Voids 1 2 # Bowel Movements 2 - Constitutional General appearance: Present: cooperative, no acute distress - Respiratory Respiratory: bilateral: CTA - Cardiovascular Heart sounds: normal: S1, S2 - Peripheral edema leg Peripheral Edema: bilateral: None - Gastrointestinal General gastrointestinal: Present: normal bowel sounds, soft. Absent: absent bowel sounds, decreased bowel sounds, distended, hepatomegaly, hyperactive bowel sounds, organomegaly, rigid, scaphoid, splenomegaly, tenderness, umbilical hernia, ventral hernia - Integumentary Integumentary: Present: normal - Neurologic Neurologic: Present: CNII-XII intact - Musculoskeletal Musculoskeletal: Present: strength equal bilaterally - Psychiatric Psychiatric: Present: A&O x's 3, appropriate affect, intact judgment & insight - Labs CBC & Chem 7: 06/05/17 07:10 06/05/17 07:10 Labs: Abnormal Lab Results - Last 24 Hours (Table) 06/04/17 06/05/17 06/05/17 Range/Units 19:42 07:10 07:10 WBC 2.5 L (3.8-10.6) k/uL RBC 2.64 L (3.80-5.40) m/uL Hgb 8.0 L (11.4-16.0) gm/dL Hct 23.8 L (34.0-46.0) % RDW 18.1 H (11.5-15.5) % Plt Count 94 L (150-450) k/uL Lymphocytes # 0.3 L (1.0-4.8) k/uL Potassium 3.2 L (3.5-5.1) mmol/L Glucose 105 H (74-99) mg/dL Calcium 7.9 L (8.4-10.2) mg/dL Magnesium 1.5 L (1.6-2.3) mg/dL AST 12 L (14-36) U/L Total Protein 6.0 L (6.3-8.2) g/dL Albumin 3.3 L (3.5-5.0) g/dL Microbiology - Last 24 Hours (Table) 06/03/17 10:46 Blood Culture - Preliminary Blood No Growth after 48 hours 06/04/17 19:00 Stool for WBCs - Final Stool 06/04/17 19:00 Stool Culture - Preliminary Stool Assessment and Plan (1) Diarrhea Narrative/Plan: Likely related to radiation and chemo. C-diff negative, additional meds ordered for treatment Current Visit: Yes Status: Acute Priority: High Code(s): R19.7 - DIARRHEA , UNSPECIFIED SNOMED Code(s): 00469831 (2) Dehydration Narrative/Plan: Pt is receiving hydration, pt tolerating oral intake, encouraged Current Visit: Yes Status: Acute Priority: High Code(s): E86.0 - DEHYDRATION SNOMED Code(s): 75957764 (3) Hypomagnesemia Narrative/Plan: Mag replacement protocol in place, improved today, labs daily Current Visit: Yes Status: Acute Priority: High Code(s): E83.42 - HYPOMAGNESEMIA SNOMED Code(s): 068415224 (4) Hypocalcemia Narrative/Plan: Ca++ supplement ordered Current Visit: Yes Status: Acute Priority: High Code(s): E83.51 - HYPOCALCEMIA SNOMED Code(s): 4349972 (5) Pancytopenia due to antineoplastic chemotherapy Narrative/Plan: Due to chemo, spp final chemo, no acute intervention today, cont CBC daily, anticipate kris in the next 3-5 days. Current Visit: Yes Status: Acute Priority: High Code(s): D61.810 - ANTINEOPLASTIC CHEMOTHERAPY INDUCED PANCYTOPENIA; T45.1X5A - ADVERSE EFFECT OF ANTINEOPLASTIC AND IMMUNOSUP DRUGS, INIT SNOMED Code(s): 331290454771142 (6) Endometrial/uterine adenocarcinoma Narrative/Plan: 4 radiations to complete. Rad/Onc will determine treatment course. Current Visit: Yes Status: Acute Code(s): C54.9 - MALIGNANT NEOPLASM OF CORPUS UTERI, UNSPECIFIED SNOMED Code(s): 788549235
[2017-06-06 01:13] VITALS: RESP 16
[2017-06-06] MEDS: DIPHENOX-ATROP 2.5-0.025 MG 1 EACH TAB PO SCH ×2 (05:37→13:19)
[2017-06-06 07:32] VITALS: BP 157/75; TEMP 98.5
[2017-06-06 08:23] LABS: Anisocytosis Slight; Basophils % (A) 0 %; Eosinophils % (A) 2 %; HCT 25.5 % (34.0-46.0); HGB 8.5 gm/dL (11.4-16.0); Lymphocytes # (A) 0.3 k/uL (1.0-4.8); Lymphocytes % (A) 9 %; MCH 30.3 pg (25.0-35.0); MCHC 33.3 g/dL (31.0-37.0); MCV 91.2 fL (80.0-100.0); Mean Platelet Volume 8.3; Monocytes # (A) 0.3 k/uL (0-1.0); Monocytes % (A) 10 %; Neutrophils # (A) 2.2 k/uL (1.3-7.7); Neutrophils % (A) 75 %; RBC 2.79 m/uL (3.80-5.40); RDW 18.5 % (11.5-15.5); WBC 2.9 k/uL (3.8-10.6)
[2017-06-06 08:26] LABS: Platelet Count 76 k/uL (150-450)
[2017-06-06] MEDS: CALCIUM CARB-VIT D 500MG-200UN 1 EACH TAB PO SCH (08:37)
[2017-06-06] MEDS: FAMOTIDINE 20 MG TAB PO SCH (08:37)
[2017-06-06] MEDS: LISINOPRIL 20 MG TAB PO SCH (08:37)
[2017-06-06 09:07] LABS: Albumin 3.3 g/dL (3.5-5.0); Anion Gap 9 mmol/L; Calcium 8.6 mg/dL (8.4-10.2); Carbon Dioxide 28 mmol/L (22-30); Chloride 102 mmol/L (98-107); Glucose 99 mg/dL (74-99); Sodium 139 mmol/L (137-145); Total Bilirubin 0.3 mg/dL (0.2-1.3)
[2017-06-06 09:13] LABS: ALT 26 U/L (9-52); AST 19 U/L (14-36); Alkaline Phosphatase 69 U/L (38-126); Blood Urea Nitrogen 18 mg/dL (7-17); Magnesium 1.5 mg/dL (1.6-2.3); Potassium 4.8 mmol/L (3.5-5.1)
--- NOTE | 2017-06-06 10:06 | P.PN ---
Subjective Progress Note Date: 06/05/17 Principal diagnosis: diarrhea/dehydration Patient is a 71 year old female with a history of FIGO IIIB adenocarcinoma of the cervix. She is nearly completed with her external beam radiotherapy, and chemotherapy has been finished for 1 week. She was admitted with weakness, dehydration and persistent diarrhea. Speaking with the patient she is still having frequent watery stools. C.dif testing was negative. She denies significant abdominal discomfort, but does feel bloated. She did present with electrolyte abnormalities which are being corrected. Objective - Vital Signs Vital signs: Vital Signs Temp 98.5 F 06/06/17 07:00 Pulse 70 06/06/17 07:00 Resp 16 06/06/17 07:00 BP 157/75 06/06/17 07:00 Pulse Ox 100 06/06/17 07:00 Intake & Output 06/05/17 06/06/17 06/06/17 18:59 06:59 18:59 Intake Total 200 960 Balance 200 960 Weight 97.5 kg Intake: Intake, IV Titration 200 Amount Magnesium Sulfate-D5w Pmx 200 1 gm In Dextrose/Water 1 100ml.bag @ 100 mls/hr IVPB Q1H [facility] Rx#: [id number] Oral 960 Other: Voiding Method Toilet Toilet # Voids 1 # Bowel Movements 1 - Constitutional General appearance: Present: no acute distress - EENT Eyes: Present: EOMI, PERRLA ENT: Present: hearing grossly normal - Neck Neck: Absent: lymphadenopathy - Respiratory Respiratory: bilateral: CTA - Cardiovascular Rhythm: regular Heart sounds: normal: S1, S2 - Gastrointestinal General gastrointestinal: Present: normal bowel sounds. Absent: tenderness - Integumentary Integumentary: Absent: calor - Neurologic Neurologic: Present: CNII-XII intact - Musculoskeletal Musculoskeletal: Present: strength equal bilaterally - Psychiatric Psychiatric: Present: A&O x's 3, appropriate affect - Labs CBC & Chem 7: 06/06/17 07:57 06/06/17 07:57 Labs: Abnormal Lab Results - Last 24 Hours (Table) 06/06/17 06/06/17 Range/Units 07:57 07:57 WBC 2.9 L (3.8-10.6) k/uL RBC 2.79 L (3.80-5.40) m/uL Hgb 8.5 L (11.4-16.0) gm/dL Hct 25.5 L (34.0-46.0) % RDW 18.5 H (11.5-15.5) % Plt Count 76 L (150-450) k/uL Lymphocytes # 0.3 L (1.0-4.8) k/uL BUN 18 H (7-17) mg/dL Magnesium 1.5 L (1.6-2.3) mg/dL Total Protein 6.0 L (6.3-8.2) g/dL Albumin 3.3 L (3.5-5.0) g/dL Microbiology - Last 24 Hours (Table) 06/05/17 19:10 Urine Culture - Preliminary Urine,Clean Catch 06/03/17 10:46 Blood Culture - Preliminary Blood No Growth after 48 hours Assessment and Plan Plan: 1. Stage IIIB Adenocarcinoma of the cervix on current radiotherapy: Patient has 3 fractions of radiotherapy remaining. She did receive one treatment yesterday. We will attempt to finish her treatment this week. Her diarrhea is likely secondary to chemotherapy/pelvic radiotherapy. Agree with bobmotil. Time with Patient: Less than 30
[2017-06-06 11:55] VITALS: PULSE 74
[2017-06-06] MEDS: MAGNESIUM SULFATE-D5W PMX 1 GM in DEXTROSE/WATER 1 100ML.BAG IVPB SCH ×2 (13:19→14:21)
[2017-06-06] MEDS: MULTIVITAMINS, THERA 1 EACH TAB PO SCH (13:20)
--- NOTE | 2017-06-06 13:58 | P.DS ---
Providers Date of admission: 06/03/17 12:50 Expected date of discharge: 06/06/17 Attending physician: Maikol Pascual Consults: 06/03/17 12:50 Consult Physician Urgent Consulting Provider: Aaron Garcia Consult Reason/Comments: uterine cancer Do you want consulting provider notified?: Yes 06/05/17 17:53 Consult Physician Routine Consulting Provider: Jorden Massey Consult Reason/Comments: plan to complete last few rad treatments Do you want consulting provider notified?: Yes, Notify in am Primary care physician: Yane [facility] Course: 71-year-old female one of Dr. De Los Santos with patient with past medical history of cervical/uterine cancer was diagnosed recently with Dr. De Los Santos with was referred to Dr. Pena of her and referred to [facility] [employer] [facility] oncology who decided for her best interest to go for radiation and some sort of chemotherapy. Patient has been doing chemotherapy with Dr. Garcia for the last few weeks. She had her last chemotherapy last week developed to have nausea with vomiting decreased appetite and generalized fatigue tiredness and overall not feeling well. Ended up coming to the emergency department not been able to eat or drink anything and having severe diarrhea for the last 2 weeks was seen and evaluated surprisingly her calcium magnesium level were very low patient was mildly dehydrated had significant orthostatic hypotension patient also her urine test was abnormal and with her diarrhea suspicious for C. diff. Patient was started on hydration electrolyte balance correction and admit patient to the hospital with the above problem. 06/05: Patient is followed by oncology during this hospitalization. She is scheduled for radiation treatment today. Telemetry will be discontinued. Potassium and magnesium will be replaced. Patient is been started on Lomotil. C. diff and stool studies are negative. Patient is on ceftriaxone for urinary tract infection but urine culture was not obtained. This will be requested now. 06/06: Repeat magnesium is 1.5 and potassium 4.8. Patient will be given 2 more grams of magnesium and she is scheduled for radiation therapy today. Once these are completed, patient will be discharged home today in stable condition. Discharge diagnoses: 1 severe debility: Combination of hypomagnesemia/hypocalcemia, pancytopenia and UTI. 2 pancytopenia due to chemotherapy. 3 severe dehydration: With orthostatic hypotension 4 sepsis with UTI 5 severe diarrhea secondary to radiation and chemotherapy 6 advanced stage III uterine cancer 7 hypertension Discharge plan: Return home. Impression and plan of care have been directed as dictated by the signing physician. Sophie Lopez nurse practitioner acting as scribe for signing physician. Patient Condition at Discharge: Good Plan - Discharge Summary New Discharge Prescriptions: New Diphenox-Atrop 2.5-0.025 mg [Lomotil] 1 each PO Q6HR #100 tab Magnesium Oxide [Mag-Ox] 400 mg PO DAILY #30 tablet Continue Loperamide [Imodium] 2 mg PO QID PRN PRN Reason: Diarrhea Ondansetron [Zofran] 4 mg PO Q8HR PRN PRN Reason: Nausea Multivitamins, Thera [Multivitamin (formulary)] 1 tab PO DAILY Lisinopril [Zestril] 20 mg PO DAILY Calcium Carbonate/Vitamin D3 [Calcium 600-Vit D3 400 Caplet] 1 tab PO DAILY Acetaminophen Tab [Tylenol] 650 mg PO Q4H PRN PRN Reason: Pain Discharge Medication List Acetaminophen Tab [Tylenol] 650 mg PO Q4H PRN 06/03/17 [History] Calcium Carbonate/Vitamin D3 [Calcium 600-Vit D3 400 Caplet] 1 tab PO DAILY 08/15 [History] Lisinopril [Zestril] 20 mg PO DAILY 06/03/17 [History] Loperamide [Imodium] 2 mg PO QID PRN 06/03/17 [History] Multivitamins, Thera [Multivitamin (formulary)] 1 tab PO DAILY 06/03/17 [History ] Ondansetron [Zofran] 4 mg PO Q8HR PRN 06/03/17 [History] Diphenox-Atrop 2.5-0.025 mg [Lomotil] 1 each PO Q6HR #100 tab 06/06/17 [Rx] Magnesium Oxide [Mag-Ox] 400 mg PO DAILY #30 tablet 06/06/17 [Rx] Follow up Appointment(s)/Referral(s): Yane De Los Santos MD [Primary Care Provider] - 06/13/17 2:30 pm Aaron Garcia MD [STAFF PHYSICIAN] - 06/14/17 3:15 pm Patient Instructions/Handouts: Hypomagnesemia (DC) Discharge Disposition: HOME SELF-CARE
[2017-06-06] MEDS: cefTRIAXone IN SWFI 1,000 MG/10 ML SYRINGE IVP SCH (15:29)
== END 2017-06-06 16:00 | disposition home or self-care (01) | DRG 871 ==
LOC: EC 10:03 → 6SEL 12:50 → 5ONC 06-04 13:06
PROVIDERS: ADMIT Internal Medicine Geriatric Medicine; ATTEND Internal Medicine Geriatric Medicine
DX: A41.9 Sepsis, unspecified organism (principal); D61.810 Antineoplastic chemotherapy induced pancytopenia; C55 Malignant neoplasm of uterus, part unspecified; E83.42 Hypomagnesemia; E83.51 Hypocalcemia; E86.0 Dehydration; I10 Essential (primary) hypertension; I95.1 Orthostatic hypotension; N39.0 Urinary tract infection, site not specified; T45.1X5A Adverse effect of antineoplastic and immunosuppressive drugs, initial encounter; Z79.899 Other long term (current) drug therapy; Z80.0 Family history of malignant neoplasm of digestive organs; Z80.3 Family history of malignant neoplasm of breast; Z87.440 Personal history of urinary (tract) infections; R19.7 Diarrhea, unspecified
CPT/HCPCS: 36415; 71046; 80053; 81001; 82550; 82553; 83605; 83735; 84484; 85025; 85610; 85730; 87040; 87045; 87046; 87086; 87324; 89055; 93005; 96361; 96365; 96366; 96375; 99285

== ENCOUNTER → 2017-06-22 | Outpatient (CLI) | payer MEDICARE ==
--- NOTE | 2017-06-22 23:29 | MR ---
EXAMINATION TYPE: MR pelvis wo/w con DATE OF EXAM: 06/22/2017 COMPARISON: NONE HISTORY: Follow up for Cervical Cancer, Gadavist 8.5ml CONTRAST: Standard multiplanar, multisequence MRI departmental protocol utilizing 8.5 mL intravenous Gadavist g adolinium contrast. FINDINGS: Uterus is enlarged and measures 8.3 x 5.8 cm. There is dilation of the endometrial cavity w ith fluid signal. This measures 4.3 cm. There is irregular thickening of the endometrium. This measur es posteriorly 1.5 cm. Bladder distends smoothly. There is mild free fluid in the pelvis. I see no adnexal mass. I see no pe lvic lymphadenopathy. There is no evidence of a bony destructive process. Hip joints are intact. IMPRESSION: There is complex cystic enlargement of the endometrial cavity consistent with tumor. Uterus is increa sed compared to the CT scan of 04/13/2017. Mild free fluid in the pelvis.
== END | disposition home or self-care (01) ==
LOC: RADMRIMAIN 16:36
PROVIDERS: ATTEND Radiology Radiation Oncology
DX: N85.8 Other specified noninflammatory disorders of uterus (principal); C53.0 Malignant neoplasm of endocervix; Z98.890 Other specified postprocedural states
CPT/HCPCS: 72197; A9581

== ENCOUNTER → 2017-07-26 | Outpatient (CLI) | payer MEDICARE ==
--- NOTE | 2017-07-26 13:05 | CT ---
EXAMINATION TYPE: CT angio chest DATE OF EXAM: 07/26/2017 COMPARISON: Prior chest x-ray June 03, 2017. Prior outside PET/CT April 13, 2017. HISTORY: SOB. History of cervical cancer. CT DLP: 590 mGycm. Automated Exposure Control for Dose Reduction was Utilized. CONTRAST: CTA scan of the thorax is performed with IV Contrast, patient injected with 70 mL of Isovue 370, pulm onary embolism protocol. MIP Images are created on CT scanner and reviewed. FINDINGS: LUNGS: There is now moderate to large left-sided pleural fluid collection which does not completely l daniel dependently. There is central compressive atelectasis and/or consolidation. There is only small amount of aerated left lung centrally left suprahilar level involving left upper lobe and superior as pect left lower lobe. No mediastinal shift is evident. Right lung is clear. The current exam right he midiaphragm is significantly higher than left diaphragm this may be product of the new left basilar p leural fluid collection. MEDIASTINUM: There is suboptimal bolus with equal contrast in the right and left heart systems but th ere is no CT evidence for acute pulmonary embolism. There are no definitive new greater than 1 cm hi lar or mediastinal lymph nodes. Some prominent but subcentimeter mediastinal lymph nodes remain prese nt. No significant pericardial effusion is seen. There is redemonstration of cardiomegaly. Main pulm onary artery at level of bifurcation measures 3.3 cm in diameter, CT findings is consistent with unde rlying pulmonary artery hypertension. Adjacent ascending aorta measures 3.3 cm diameter. OTHER: There is underlying levoconvex scoliosis centered in the upper thoracic spine redemonstrated. Heterogeneous enhancement of spine is presumed product of timing of contrast bolus. IMPRESSION: 1. Suboptimal study without CT evidence for acute pulmonary embolism. 2. New moderate to large size left-sided pleural fluid collection, does not completely layer dependen tly. There is associated compressive atelectasis. Ultrasound guided thoracentesis for diagnostic and/ or therapeutic purposes can be performed if desired. Results communicated to ordering oncologist via telephone at time of dictation.
== END | disposition home or self-care (01) ==
LOC: RADXRMAIN 11:18
PROVIDERS: ATTEND Internal Medicine Hematology & Oncology
DX: C53.0 Malignant neoplasm of endocervix (principal); J98.11 Atelectasis
CPT/HCPCS: 82565; 84520; 71275; 36415; Q9967

== ENCOUNTER → 2017-07-30 | Day surgery (SDC) | payer MEDICARE ==
[~2017-07-30] MED LIST: SODIUM CHLORIDE 0.9% 500 ML in EMPTY BAG 1 BAG IV PRN
--- NOTE | 2017-07-30 11:24 | US ---
EXAMINATION TYPE: US chest DATE OF EXAM: 07/30/2017 COMPARISON: NONE CLINICAL HISTORY: J91.8 PULMONARY EFFUSION. SOB EXAM MEASUREMENTS: Right Pleural Effusion fluid pocket: 0 cm Left Pleural Effusion fluid pocket: 8.1 cm Left skin to fluid thickness: 3.5 cm Left side marked for possible thoracentesis outside the dept. Pulmonologists are able to review the images in the patient?s EMR. IMPRESSIONS: Left-sided pleural effusion
[2017-07-30 12:11] VITALS: PULSE 95; RESP 16
[2017-07-30 12:18] VITALS: BP 181/75
--- NOTE | 2017-07-30 13:17 | XR ---
EXAMINATION TYPE: XR chest 1V portable DATE OF EXAM: 07/30/2017 COMPARISON: 06/03/2017 HISTORY: Status post left-sided thoracentesis TECHNIQUE: Single frontal view of the chest is obtained. FINDINGS: Minimal blunting of the left costophrenic angle relates to a trace residual pleural effusi on. Cardiac silhouette is enlarged. Remainder the lungs are clear. No postprocedural pneumothorax is identified. Osseous structures are grossly intact. IMPRESSION: No postprocedural pneumothorax with trace residual left pleural effusion.
--- NOTE | 2017-07-30 13:28 | PCN ---
PROCEDURE NOTE OPERATIVE REPORT: Left-sided thoracentesis. PREOPERATIVE DIAGNOSIS: Left pleural effusion. POSTOPERATIVE DIAGNOSIS: Left pleural effusion. ANESTHESIA USED: 5 mL of 1% lidocaine. PROCEDURE: The patient was placed in a sitting upright position, the area below the left scapula was prepared in a sterile fashion and drapes were applied. Prior to the procedure, the fluid was localized by ultrasound, and the area which was marked correlated to be the 9th intercostal space and tip of the scapula. The area was locally anesthetized after preparing the site in a sterile fashion and drapes were applied. Then 5 mL of lidocaine were injected at the same site until the area was locally anesthetized, then a 26-gauge needle was inserted at the site, advanced into the pleural space. The fluid was localized with a needle. Then a small incision was made with an 11 scalpel, and I was able to enter that space through the incision using a thoracentesis catheter and needle. As I advanced and entered the pleural space, the catheter was advanced out of the needle, and the needle was pulled out of the pleural space. Freely flowing fluid was removed, roughly 1750 mL of straw colored fluid removed from the left pleural space. The fluid was sent for different diagnostic studies. Procedure was well tolerated, no evidence of any immediate complications. Chest x-ray was ordered postoperatively. MMODL / IJN: [id number] /
[2017-07-30 16:05] LABS: Appearance,BF Clear; Color,BF Yellow
[2017-07-30 16:06] LABS: Nucleated Cells, Body Fluid 134 /uL; RBC, Body Fluid 463 /uL
[2017-07-30 16:09] LABS: Total Cells Counted,Body Fluid 100
[2017-07-30 16:11] LABS: Mononuclear WBC,Body Fluid 45 %; Polynuclear WBC,Body Fluid 45 %
[2017-07-30 19:12] LABS: Total Protein, Body Fluid 4700 mg/dL
== END ==
LOC: CANSCHSDC → PROCWHC3 10:58
PROVIDERS: ATTEND Internal Medicine
DX: C78.2 Secondary malignant neoplasm of pleura (principal); J91.0 Malignant pleural effusion; Z85.41 Personal history of malignant neoplasm of cervix uteri; Z92.21 Personal history of antineoplastic chemotherapy; Z92.3 Personal history of irradiation
CPT/HCPCS: 32554; 71045; 76604; 82150; 82570; 82945; 83615; 84157; 87070; 87102; 87116; 87205; 87206; 88108; 88305; 89050

== ENCOUNTER 2017-08-07 16:43 | Emergency (ER) | payer MEDICARE ==
[2017-08-07 16:50] VITALS: RESP 18
[2017-08-07] MEDS ORDERED: SODIUM CHLORIDE 0.9% 1,000 ML IV STA (20:58)
--- NOTE | 2017-08-07 21:04 | ED ---
General Adult HPI - General Chief complaint: Back Pain/Injury Stated complaint: Left back pain, had fluid drained off lungs Time Seen by Provider: 08/07/17 20:50 Source: patient, RN notes reviewed Mode of arrival: ambulatory Limitations: no limitations - History of Present Illness Initial comments: Patient is a pleasant 71-year-old female presenting to the emergency department complaining of left mid back pain. Patient did have thoracentesis done around 10 days ago and had approximately 2 L of fluid drained off. Unclear etiology of the fluid. Patient is having some increased discomfort in that region the past day or 2. No dyspnea. Patient has had some decreased urination. 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 Patient did have MRI done just a couple of weeks ago that did not show any further spread. Patient has recently finished chemotherapy and radiation and is pending repeat evaluation. Discomfort is the region of the thoracentesis and a few centimeters below it. Patient does have occasional sharp chest discomfort that just lasted a couple of seconds and she had a thoracentesis done , patient has not had those symptoms today however. - Related Data Home Medications Medication Instructions Recorded Confirmed Acetaminophen Tab [Tylenol] 650 mg PO Q4H PRN 06/03/17 07/30/17 Calcium Carbonate/Vitamin D3 1 tab PO DAILY 06/03/17 07/30/17 [Calcium 600-Vit D3 400 Caplet] Lisinopril [Zestril] 20 mg PO DAILY 06/03/17 07/30/17 Loperamide [Imodium] 2 mg PO QID PRN 06/03/17 07/30/17 Multivitamins, Thera [Multivitamin 1 tab PO DAILY 06/03/17 07/30/17 (formulary)] Previous Rx's Medication Instructions Recorded Diphenox-Atrop 2.5-0.025 mg 1 each PO Q6HR #100 tab 06/06/17 [Lomotil] Magnesium Oxide [Mag-Ox] 400 mg PO DAILY #30 tablet 06/06/17 Sulfamethox-Tmp 800-160Mg [Bactrim 1 each PO Q12HR #18 tab 08/07/17 DS 800-160 mg] Allergies Allergy/AdvReac Type Severity Reaction Status Date / Time Penicillins Allergy Rash/Hives Verified 08/07/17 16:50 Review of Systems ROS Statement: Those systems with pertinent positive or pertinent negative responses have been documented in the HPI. ROS Other: All systems not noted in ROS Statement are negative. Constitutional: Denies: fever Eyes: Denies: eye pain ENT: Denies: ear pain Respiratory: Denies: cough, dyspnea Cardiovascular: Denies: palpitations Endocrine: Denies: fatigue Gastrointestinal: Denies: abdominal pain Genitourinary: Denies: dysuria Musculoskeletal: Reports: back pain Skin: Denies: rash Neurological: Denies: weakness Past Medical History Past Medical History: Cancer, Hypertension Additional Past Medical History / Comment(s): Fluid on lungs History of Any Multi-Drug Resistant Organisms: None Reported Past Surgical History: Cholecystectomy, Hernia Repair Past Psychological History: No Psychological Hx Reported Smoking Status: Never smoker Past Alcohol Use History: None Reported Past Drug Use History: None Reported - Past Family History Sister(s) Family Medical History: Cancer (gastric) Additional Family Medical History / Comment(s): Maternal grandmother breast cancer, maternal grandfather colon cancer General Exam Limitations: no limitations General appearance: alert, in no apparent distress Head exam: Present: atraumatic Eye exam: Present: normal appearance, PERRL ENT exam: Present: normal oropharynx Neck exam: Present: normal inspection Respiratory exam: Present: normal lung sounds bilaterally Cardiovascular Exam: Present: regular rate, normal rhythm GI/Abdominal exam: Present: soft. Absent: tenderness Back exam: Present: other (Patient does have puncture left lower thoracic region. Patient has minimal tenderness in the area of the puncture and several centimeters below and extending towards the left CVA. No erythema.) Neurological exam: Present: alert Psychiatric exam: Present: normal affect, normal mood Skin exam: Present: normal color Course Vital Signs 08/07/17 16:46 Temperature 98.7 F Pulse Rate 91 Respiratory 18 Rate Blood Pressure 151/66 O2 Sat by Pulse 97 Oximetry EKG Findings - EKG Comments: EKG Findings:: Atrial rhythm with a bigeminy pattern with a rate of 75. TN 112. QRS 82. QT 360. QTC 402. Normal axis. Normal QRS. No acute ST change. Medical Decision Making - Medical Decision Making Patient reevaluated and resting comfortably in bed. Patient still denies dyspnea. Case was discussed in detail with Dr. Kaur, covering for Dr. Chi. He feels the patient is breathing well she can be discharged and follow-up. Patient and family updated and are in agreement. - Lab Data Result diagrams: 08/07/17 21:15 08/07/17 21:15 Lab Results 08/07/17 08/07/17 08/07/17 Range/Units 21:15 21:15 21:15 WBC 8.7 (3.8-10.6) k/uL RBC 3.09 L (3.80-5.40) m/uL Hgb 9.8 L (11.4-16.0) gm/dL Hct 30.1 L (34.0-46.0) % MCV 97.3 D (80.0-100.0) fL MCH 31.6 (25.0-35.0) pg MCHC 32.5 (31.0-37.0) g/dL RDW 14.3 (11.5-15.5) % Plt Count 195 D (150-450) k/uL Neutrophils % 85 % Lymphocytes % 6 % Monocytes % 6 % Eosinophils % 2 % Basophils % 0 % Neutrophils # 7.4 (1.3-7.7) k/uL Lymphocytes # 0.5 L (1.0-4.8) k/uL Monocytes # 0.5 (0-1.0) k/uL Eosinophils # 0.2 (0-0.7) k/uL Basophils # 0.0 (0-0.2) k/uL Hypochromasia Slight Sodium 143 (137-145) mmol/L Potassium 4.4 (3.5-5.1) mmol/L Chloride 103 (98-107) mmol/L Carbon Dioxide 26 (22-30) mmol/L Anion Gap 14 mmol/L BUN 31 H (7-17) mg/dL Creatinine 0.90 (0.52-1.04) mg/dL Est GFR (CKD-EPI)AfAm 74 (>60 ml/min/1.73 sqM) Est GFR (CKD-EPI)NonAf 64 (>60 ml/min/1.73 sqM) Glucose 122 H (74-99) mg/dL Calcium 9.6 (8.4-10.2) mg/dL Total Bilirubin 0.3 (0.2-1.3) mg/dL AST 12 L (14-36) U/L ALT 15 (9-52) U/L Alkaline Phosphatase 77 (38-126) U/L Total Creatine Kinase (30-135) U/L CK-MB (CK-2) (0.0-2.4) ng/mL CK-MB (CK-2) Rel Index Troponin I (0.000-0.034) ng/mL Total Protein 7.2 (6.3-8.2) g/dL Albumin 3.8 (3.5-5.0) g/dL Urine Color Yellow Urine Appearance Clear (Clear) Urine pH 5.0 (5.0-8.0) Ur Specific [place] 1.020 (1.001-1.035) Urine Protein Negative (Negative) Urine Glucose (UA) Negative (Negative) Urine Ketones Negative (Negative) Urine Blood Negative (Negative) Urine Nitrite Negative (Negative) Urine Bilirubin Negative (Negative) Urine Urobilinogen <2.0 (<2.0) mg/dL Ur Leukocyte Esterase Moderate H (Negative) Urine RBC 2 (0-5) /hpf Urine WBC 24 H (0-5) /hpf Ur Squamous Epith Cells <1 (0-4) /hpf Hyaline Casts 1 (0-2) /lpf Urine Mucus Rare H (None) /hpf 08/07/17 Range/Units 21:15 WBC (3.8-10.6) k/uL RBC (3.80-5.40) m/uL Hgb (11.4-16.0) gm/dL Hct (34.0-46.0) % MCV (80.0-100.0) fL MCH (25.0-35.0) pg MCHC (31.0-37.0) g/dL RDW (11.5-15.5) % Plt Count (150-450) k/uL Neutrophils % % Lymphocytes % % Monocytes % % Eosinophils % % Basophils % % Neutrophils # (1.3-7.7) k/uL Lymphocytes # (1.0-4.8) k/uL Monocytes # (0-1.0) k/uL Eosinophils # (0-0.7) k/uL Basophils # (0-0.2) k/uL Hypochromasia Sodium (137-145) mmol/L Potassium (3.5-5.1) mmol/L Chloride (98-107) mmol/L Carbon Dioxide (22-30) mmol/L Anion Gap mmol/L BUN (7-17) mg/dL Creatinine (0.52-1.04) mg/dL Est GFR (CKD-EPI)AfAm (>60 ml/min/1.73 sqM) Est GFR (CKD-EPI)NonAf (>60 ml/min/1.73 sqM) Glucose (74-99) mg/dL Calcium (8.4-10.2) mg/dL Total Bilirubin (0.2-1.3) mg/dL AST (14-36) U/L ALT (9-52) U/L Alkaline Phosphatase (38-126) U/L Total Creatine Kinase 41 (30-135) U/L CK-MB (CK-2) 1.0 (0.0-2.4) ng/mL CK-MB (CK-2) Rel Index 2.4 Troponin I <0.012 (0.000-0.034) ng/mL Total Protein (6.3-8.2) g/dL Albumin (3.5-5.0) g/dL Urine Color Urine Appearance (Clear) Urine pH (5.0-8.0) Ur Specific [place] (1.001-1.035) Urine Protein (Negative) Urine Glucose (UA) (Negative) Urine Ketones (Negative) Urine Blood (Negative) Urine Nitrite (Negative) Urine Bilirubin (Negative) Urine Urobilinogen (<2.0) mg/dL Ur Leukocyte Esterase (Negative) Urine RBC (0-5) /hpf Urine WBC (0-5) /hpf Ur Squamous Epith Cells (0-4) /hpf Hyaline Casts (0-2) /lpf Urine Mucus (None) /hpf - Radiology Data Radiology results: image reviewed (Chest x-ray does show left-sided effusion) Disposition Clinical Impression: Pleural effusion, Urinary tract infection Disposition: HOME SELF-CARE Condition: Stable Instructions: Pleural Effusion (ED), Urinary Tract Infection in Women (ED) Additional Instructions: Please follow-up with primary care physician and Dr. Garcia and Dr. Chi in the next day or 2 for recheck. Please return to emergency department for any difficulty in breathing, worsening symptoms, or other concerns or fevers. Prescriptions: Sulfamethox-Tmp 800-160Mg [Bactrim DS 800-160 mg] 1 each PO Q12HR #18 tab Referrals: Yane De Los Santos MD [Primary Care Provider] - 1-2 days Time of Disposition: 22:34
[2017-08-07 21:31] LABS: Basophils % (A) 0 %; Eosinophils # (A) 0.2 k/uL (0-0.7); Eosinophils % (A) 2 %; HCT 30.1 % (34.0-46.0); HGB 9.8 gm/dL (11.4-16.0); Hypochromasia Slight; Lymphocytes # (A) 0.5 k/uL (1.0-4.8); Lymphocytes % (A) 6 %; MCH 31.6 pg (25.0-35.0); MCHC 32.5 g/dL (31.0-37.0); Mean Platelet Volume 7.2; Monocytes # (A) 0.5 k/uL (0-1.0); Monocytes % (A) 6 %; Neutrophils # (A) 7.4 k/uL (1.3-7.7); Neutrophils % (A) 85 %; RBC 3.09 m/uL (3.80-5.40); RDW 14.3 % (11.5-15.5); WBC 8.7 k/uL (3.8-10.6)
[2017-08-07 21:34] LABS: MCV 97.3 fL (80.0-100.0)
[2017-08-07 21:35] LABS: Platelet Count 195 k/uL (150-450)
[2017-08-07 21:38] LABS: Appearance,Urine Clear (Clear); Bilirubin,Urine Negative (Negative); Blood,Urine Negative (Negative); Color,Urine Yellow; Glucose,Urine (UA) Negative (Negative); Hyaline Casts,Urine 1 /lpf (0-2); Ketones,Urine Negative (Negative); Leukocyte Esterase,Urine Moderate (Negative); Mucus,Urine Rare /hpf; Nitrite,Urine Negative (Negative); Protein,Urine Negative (Negative); RBC,Urine 2 /hpf (0-5); Squamous Epithelial Cell,Urine <1 /hpf (0-4); Urobilinogen,Urine <2.0 mg/dL (<2.0); WBC,Urine 24 /hpf (0-5)
[2017-08-07 21:48] LABS: Albumin 3.8 g/dL (3.5-5.0); Calcium 9.6 mg/dL (8.4-10.2); Potassium 4.4 mmol/L (3.5-5.1); Total Bilirubin 0.3 mg/dL (0.2-1.3); Total Protein 7.2 g/dL (6.3-8.2)
[2017-08-07 21:50] LABS: Creatine Kinase 41 U/L (30-135)
[2017-08-07 22:00] LABS: Troponin I <0.012 ng/mL (0.000-0.034)
--- NOTE | 2017-08-07 22:10 | XR ---
EXAMINATION TYPE: XR chest 2V DATE OF EXAM: 08/07/2017 COMPARISON: 07/30/2017 HISTORY: Thoracentesis TECHNIQUE: Frontal and lateral views of the chest are obtained. FINDINGS: There is blunting of the left costophrenic angle. There is no heart failure. Heart is enla rged. Thoracic aorta is atheromatous. IMPRESSION: There is increased left pleural effusion compared to last exam. Radial megaly. No gross heart failure.
--- NOTE | 2017-08-07 22:12 | XR ---
EXAMINATION TYPE: XR KUB DATE OF EXAM: 08/07/2017 COMPARISON: 04/16/2013 HISTORY: Back pain TECHNIQUE: 2 views FINDINGS: Bowel gas pattern is normal. There is no sign of intestinal obstruction or pneumoperitoneum . Fecal pattern is normal. There are clips from cholecystectomy. IMPRESSION: Nonacute abdomen. No adverse change compared to old exam.
[2017-08-07] MEDS ORDERED: SULFAMETH-TMP DS STARTER PACK 2 TAB BTL PO STA (22:32)
[2017-08-07 22:43] VITALS: BP 112/55; PULSE 79; TEMP 98.1
== END 2017-08-07 22:53 | disposition home or self-care (01) ==
LOC: EC 16:43
DX: J90 Pleural effusion, not elsewhere classified (principal); N39.0 Urinary tract infection, site not specified; R07.89 Other chest pain; M54.9 Dorsalgia, unspecified; I10 Essential (primary) hypertension; Z85.41 Personal history of malignant neoplasm of cervix uteri; Z85.42 Personal history of malignant neoplasm of other parts of uterus; Z79.899 Other long term (current) drug therapy; Z88.0 Allergy status to penicillin
CPT/HCPCS: 36415; 71046; 74018; 80053; 81001; 82550; 82553; 84484; 85025; 87086; 93005; 96360; 99284

== ENCOUNTER → 2017-09-03 | Outpatient (CLI) | payer MEDICARE ==
--- NOTE | 2017-09-04 17:20 | CT ---
EXAMINATION TYPE: CT ChestAbdPelvis w con DATE OF EXAM: 09/03/2017 COMPARISON: [facility] chest dated 07/26/2017 and MR pelvis dated 06/22/2017. HISTORY: Cervical CA. Last chemotherapy in May 2017. CT DLP: 1377.8 mGycm. Automated Exposure Control for Dose Reduction was Utilized. CONTRAST: CT scan of the thorax, abdomen and pelvis is performed with IV Contrast, patient injected with 100 mL of Isovue 300. FINDINGS: LUNGS: There are multiple pulmonary nodules and pleural implants (at least 10 on the right and at [address] on the left) with the largest subpleural implants injuring 2.6 cm along the lateral left upper lobe on series 4 image 24 and 3.4 cm along a layering pleural effusion also on series 4 image 24. The largest bilobed pulmonary nodule in the left measures 1.9 cm in the lingula on series 4 image 27. Th e largest nodule on the right measures 1.0 cm in the right upper lobe along the interlobar fissure on series 4 image 19. There is decrease in degree of left-sided pleural effusion in comparison to the p rior, now mild with new mild right pleural effusion and associated subsegmental atelectasis at the angelina ng bases. MEDIASTINUM: There is a right-sided Mediport terminating in the superior vena cava. No central pulmon moe embolus. Presumably metastatic implant/pleural thickening are seen along the left lateral mediast inal border. Prominent epiphrenic lymph node measures 9 mm in short axis. No other mediastinal adenop athy or axillary adenopathy. Trace pericardial fluid is seen. Again the main pulmonary artery is enl arged suggesting underlying pulmonary arterial hypertension. OTHER: Benign dystrophic calcifications are seen within the left breast. No discrete supraclavicular adenopathy is identified. No suspicious osseous lesion. Mild multilevel degenerative changes of the v isualized cervical thoracic spine. LIVER/GB: No discrete hepatic lesions are seen. Gallbladder is surgically absent. Minimal intrahepati c biliary ductal dilatation is likely postsurgical. No subcapsular implants are identified. PANCREAS: No significant abnormality is seen. No ductal dilatation. SPLEEN: No significant abnormality is seen. No splenomegaly. ADRENALS: No nodularity or thickening. KIDNEYS: Kidneys enhance symmetrically. No hydronephrosis. BOWEL: No significant abnormality is seen. GENITAL ORGANS: Elongated hypoechoic structure in the left adnexa connects to the gonadal vein and is presumed to be the left ovary containing an abnormal 4.2 x 1.9 cm hypodense structure. This could re present a paraovarian metastatic implant, adjacent adenopathy, or less likely elongated ovarian cysti c neoplasm. Again there is redemonstration of a complex centrally cystic and peripherally solid mass compatible w ith the patient's known cervical carcinoma measuring least 6.2 x 5.0 cm and previously measuring 4.3 cm on the MR pelvis dated 06/22/2017. This is measured on series 3 image 101. There is extensive dilat ation of the uterine cavity favored to represent hydrometracolpos from the obstructing cervical mass. It is difficult to delineate on CT whether this involves the vagina or lower uterine segment however it appears to spare the distal vagina. There is surrounding parametrial fat stranding. Additionally there is a focus of air within the urinary bladder and circumferential urinary bladder wall thickenin g. No rectal wall thickening is seen. Along the antimesenteric border of the ventral pelvic wall on series 3 image 92 there is extensive om ental caking/peritoneal carcinomatosis. Other scattered peritoneal implants are seen such as on serie s 3 image 88. LYMPH NODES: Although there is no gross evidence of adenopathy mesenteric implants are described abov e. Possible left pelvic adenopathy along the left ovary is also described in the genital organs secti on. OSSEOUS STRUCTURES: No significant abnormality is seen. No suspicious osseous lesion is identified. OTHER: Moderate calcific and noncalcific atheromatous plaquing is seen of the abdominal aorta and its branches. Abdominal aorta is of normal course and caliber. IMPRESSION: 1. Progression of disease. Interval development of numerous bilateral pulmonary nodules, left greater than right, and pleural studding highly suspicious for pulmonary metastasis and pleural metastatic i mplants. There is improved degree of now small left pleural effusion and interval development of a s mall right pleural effusion. 2. Air within the urinary bladder and circumferential urinary bladder wall thickening. Air is concern ing for either urinary tract infection, recent instrumentation, or the vesicocervical fistula given t he abutting known cervical carcinoma. If there is further clinical concern CT cystogram could be perf ormed. 3. Enlargement of the known cervical carcinoma and dilatation of the endometrial cavity presumed to r epresent hydrometrocolpos. 4. Evidence of peritoneal carcinomatosis/peritoneal metastatic implants. 5. Cystic lesion in the region of the left ovary that could represent adenopathy, additional mesenter ic implants, or abnormal left ovary.
== END | disposition home or self-care (01) ==
LOC: RADCTMAIN 12:04
PROVIDERS: ATTEND Internal Medicine Hematology & Oncology
DX: C53.0 Malignant neoplasm of endocervix (principal); R91.8 Other nonspecific abnormal finding of lung field; N80.8 Other endometriosis; J90 Pleural effusion, not elsewhere classified; N32.89 Other specified disorders of bladder; C78.6 Secondary malignant neoplasm of retroperitoneum and peritoneum; N83.202 Unspecified ovarian cyst, left side
CPT/HCPCS: 82565; 84520; 71260; 74177; 36415; Q9967

== ENCOUNTER → 2017-09-17 | Outpatient (CLI) | payer MEDICARE ==
--- NOTE | 2017-09-17 12:06 | XR ---
EXAMINATION TYPE: XR chest 2V DATE OF EXAM: 09/17/2017 COMPARISON: Prior chest x-ray 08/07/2017, 08/21/[address] 09/03/2017 HISTORY: Pleural effusions, cervical carcinoma TECHNIQUE: Frontal and lateral views of the chest are obtained. FINDINGS: There is blunting of the costophrenic angles left greater than right. Bilateral pulmonary nodules are present. No evident pneumothorax. Port is present in the right pectoral region, distal ti p of the jugular catheter is overlying superior vena cava. Heart size is likely stable. IMPRESSION: Metastatic disease, bilateral pleural effusions
== END | disposition home or self-care (01) ==
LOC: RADXRMAIN 11:11
PROVIDERS: ATTEND Internal Medicine Hematology & Oncology
DX: C53.0 Malignant neoplasm of endocervix (principal); I10 Essential (primary) hypertension; J90 Pleural effusion, not elsewhere classified; Z71.3 Dietary counseling and surveillance
CPT/HCPCS: 71046

== ENCOUNTER → 2017-10-23 | Outpatient (CLI) | payer MEDICARE ==
--- NOTE | 2017-10-23 14:56 | XR ---
EXAMINATION TYPE: XR chest 2V DATE OF EXAM: 10/23/2017 COMPARISON: Prior chest x-ray 09/17/2017 HISTORY: C 53.0, malignant neoplasm of endocervix, left pleural effusion TECHNIQUE: Frontal and lateral views of the chest are obtained. FINDINGS: Left pleural effusion is stable. There are nodular densities seen in the left lung greater than right compatible with metastatic disease. Right-sided Port-A-Cath is present in the distal tip overlying the superior vena cava. Heart is enlarged. No evident pneumothorax. There may be a small ri ght effusion, there is blunting of the right costophrenic angle. There is a spinal curvature. IMPRESSION: Pleural effusions left greater than right. Metastatic disease. There may be some slight improvement in aeration as compared to prior exam.
== END | disposition home or self-care (01) ==
LOC: RADXRMAIN 13:34
PROVIDERS: ATTEND Internal Medicine Hematology & Oncology
DX: J90 Pleural effusion, not elsewhere classified (principal); C79.9 Secondary malignant neoplasm of unspecified site; C53.0 Malignant neoplasm of endocervix; I10 Essential (primary) hypertension
CPT/HCPCS: 71046

== ENCOUNTER → 2017-12-11 | Outpatient (CLI) | payer MEDICARE ==
--- NOTE | 2017-12-11 13:15 | CT ---
EXAMINATION TYPE: CT ChestAbdPelvis w con DATE OF EXAM: 12/11/2017 COMPARISON: CT chest abdomen pelvis September 03, 2017 and older studies. Outside PET/CT April 13, 2017. HISTORY: Follow up study for cervical CA. Originally diagnosed February 2017 currently on chemotherap y with history of radiation ended June 2017. CT DLP: 921.4 mGycm. Automated Exposure Control for Dose Reduction was Utilized. CONTRAST: CT scan of the thorax, abdomen and pelvis is performed with IV Contrast, patient injected with 100 mL of Isovue 300. FINDINGS: LUNGS: Small right pleural effusion has resolved. There is persistent small left pleural fluid collec tion or effusion which does not completely layer dependently as there is prominent lateral component is felt fairly stable from prior. Associated left basilar atelectasis is seen. There is redemonstrati on of scattered pulmonary nodules or metastatic lesions as well as irregular pleural implants along t he major fissure in the left lung. Reference lesion laterally left pleura measures 2.2 cm long axis c urrent study axial image 24 and similar measurements prior study. Prior possible lesion centrally jessica or exam axial image 28 is not clearly identified consistent with resolved fissure based pleural fluid collection. There is inferiorly stable 1.1 cm nodule long axis axial image 16 right upper lobe abutt ing fissure not significantly changed in appearance from prior exam. There is better visualization of posterior right basilar 2.2 cm nodule axial image 38 current study due to resolution of right-sided effusion. I do suspect a few slightly enlarging nodules. For reference just over 9 mm subpleural nodu le posteriorly axial image 10 versus just under 8 mm prior study long axis. MEDIASTINUM: There are no new greater than 1 cm hilar or mediastinal lymph nodes. Prominent right tr acheobronchial lymph node axial image 19 and is stable. Stable trace pericardial effusion is seen axi al image 43. Stable cardiomegaly. OTHER: Stable 1.0 cm medial inferior right breast lesion axial image 39 near skin surface. Stable rig ht-sided internal jugular Mediport catheter. LIVER/GB: Cholecystectomy clips are redemonstrated. PANCREAS: No significant abnormality is seen. SPLEEN: No significant abnormality is seen. ADRENALS: No significant abnormality is seen. KIDNEYS: Persistent nondependent air within bladder axial image 102. BOWEL: There is no suspicious small or large bowel dilatation. Evaluation distal bowel is suboptimal as oral contrast only reaches mid transverse colon level. GENITAL ORGANS: Prominent diverging hypodensities uterine horns likely reflects trapped endometrial f luid in uterus is redemonstrated. Primary cervical neoplasm difficult to accurately measure separate from uterus near axial image 99 felt grossly stable. Some scattered pelvic phleboliths are seen. Poor visualization of left ovary adjacent to sigmoid colon axial image 94 is less prominent than prio r study. LYMPH NODES: No greater than 1cm abdominal or pelvic lymph nodes are appreciated. OSSEOUS STRUCTURES: Multilevel facet arthropathy lower lumbar spine is seen. OTHER: Tiny amount of free fluid in pelvis left of midline axial image 94 is now present. Heterogeneo us fat stranding anterior lower abdominal wall near axial image 85 is redemonstrated. Moderate calcified plaque of aorta extends into branch vessels. IMPRESSION: 1. Based on Recist criteria overall stable findings with scattered pulmonary and pleural metastatic n odules redemonstrated. Reference lesions fairly stable. Few nodules felt slightly larger in size lashay nuria prior. Cannot exclude peritoneal carcinomatosis. No significant change from prior. 2. Nondependent air in bladder redemonstrated. Fistula is in differential.
== END | disposition home or self-care (01) ==
LOC: RADPROMAIN 10:38
PROVIDERS: ATTEND Internal Medicine Hematology & Oncology
DX: R91.8 Other nonspecific abnormal finding of lung field (principal); C53.0 Malignant neoplasm of endocervix; Z88.0 Allergy status to penicillin; Z88.1 Allergy status to other antibiotic agents
CPT/HCPCS: 82565; 84520; 71260; 74177; 36415; J1642; Q9967

== ENCOUNTER → 2018-03-04 | Outpatient (CLI) | payer MEDICARE ==
--- NOTE | 2018-03-04 13:21 | CT ---
EXAMINATION TYPE: CT chest w con DATE OF EXAM: 03/04/2018 COMPARISON: 12/11/2017 HISTORY: Endocervical cancer CT DLP: 256.3 mGycm Automated exposure control for dose reduction was used. CONTRAST: CT scan of the chest is performed with IV Contrast, patient injected with 100 mL of Isovue 300. FINDINGS: LUNGS: There is interval development of small bilateral pleural effusions. Associated bilateral basilar atelectasis is seen. There is redemonstration of scattered pulmonary nodules or metastatic lesions as well as irregular pl eural implants along the major fissure in the left lung. Reference lesion laterally left pleura measu res 2.2 cm long axis current study axial measure 2.2 cm on the previous study. Numerous bilateral nodules or masses are seen. There is inferiorly stable 1.1 cm nodule right upper lobe abutting fissure not significantly changed in appearance from prior exam. There is stable posterior right basilar 2.2 cm nodule There is suspicion for a few slightly enlarging nodules. For reference just over 11 mm subpleural nodule medial margin right lung base versus just under 8 mm prior study long axis. MEDIASTINUM: There are no greater than 1 cm hilar or mediastinal lymph nodes. Stable cardiomegaly. Tr dayna amount of pericardial fluid again noted. Atherosclerotic change aorta. OTHER: Stable mild thickening of the adrenal glands. Previous cholecystectomy changes noted. Degener ative changes of the vertebral column. Mediport catheter seen. IMPRESSION: 1. There is persistent scattered pleural and parenchymal pulmonary nodules compatible with metastatic disease. Majority of the lesions are stable. A few nodules are slightly increased in size relative t o the prior as measured above. 2. Interval development of small bilateral pleural effusions greater on the left
== END | disposition home or self-care (01) ==
LOC: RADPROMAIN 10:58
PROVIDERS: ATTEND Internal Medicine Hematology & Oncology
DX: C53.0 Malignant neoplasm of endocervix (principal); J90 Pleural effusion, not elsewhere classified; R91.8 Other nonspecific abnormal finding of lung field
CPT/HCPCS: 71260; J1642; Q9967

== ENCOUNTER 2018-03-20 12:00 | Inpatient (IN) | payer MEDICARE ==
[2018-03-20 09:58] LABS: Mean Platelet Volume 7.3; Platelet Count 130 k/uL (150-450)
[2018-03-20 10:02] LABS: INR 1.5 (<1.2); Prothrombin Time 14.3 sec (9.0-12.0)
--- NOTE | 2018-03-20 11:06 | XR ---
EXAMINATION TYPE: XR chest 1V portable DATE OF EXAM: 03/20/2018 COMPARISON: Chest CT 03/04/2018, chest x-ray 10/23/2017 INDICATION: Postthoracentesis TECHNIQUE: Single frontal view of the chest is obtained. FINDINGS: The heart size is normal. The pulmonary vasculature is normal. There is a large pneumothorax which appears loculated at the left base at the site of the patient's p revious fluid. This is estimated at 30%. Preliminary Report was provided at the time of preliminary i nterpretation to the radiology nurse. There is some patchy infiltrate through the bilateral lung crisostomo. Port is present on the right with the tip in the superior vena cava region. Minimal right pleural effusion may be present. IMPRESSION: 1. Loculated large left lateral base pneumothorax postthoracentesis. A Red level critical message alert has been initiated for David Ordaz via the [facility] Results System on 03/20/2018 11:04 AM. This message alert has been sent to David Ordaz via the p references provided by the clinician for the receipt of Radiology Critical Findings. Message ID [id number].
--- NOTE | 2018-03-20 12:20 | US ---
EXAMINATION TYPE: US thoracentesis DATE OF EXAM: 03/20/2018 COMPARISON: CT chest 03/04/2018 HISTORY: Pleural effusion. FINDINGS: Maximal barrier technique was utilized. The skin overlying a suitable pocket of fluid was localized and the overlying skin prepped and draped. Lidocaine was used for local anesthesia. Ultras ound was used with sterile technique. A 5 [place] catheter over guide needle was advanced into the pl eural fluid collection using ultrasound guidance and the catheter advanced, needle removed. Approxim ately 0.4 liter(s) of serous fluid was removed. Catheter was withdrawn and hemostasis achieved. The re is no immediate complication. The patient discharged in stable condition without complication. IMPRESSION: STATUS POST ULTRASOUND GUIDED THORACENTESIS, POST PROCEDURE CHEST X-RAY PENDING. THIS [place] OCEDURE WAS PERFORMED BY THE UNDERSIGNED. Specimen sent for laboratory analysis.
--- NOTE | 2018-03-20 14:11 | ED ---
General Adult HPI - General Chief complaint: Shortness of Breath Stated complaint: Shortness of Breath Time Seen by Provider: 03/20/18 12:00 Source: patient, RN notes reviewed Mode of arrival: ambulatory Limitations: no limitations - History of Present Illness Initial comments: This is a 72-year-old female who presents emergency Department after having had a thoracentesis. She was sent to the emergency department because it looked as though the patient might have a pneumothorax. 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 Patient states she is no more short of breath and she was before she denies any chest pain she denies any fever patient denies any symptoms at this time she was told to come to the emergency department for observation because of this potential trapped along. - Related Data Home Medications Medication Instructions Recorded Confirmed Calcium Carbonate/Vitamin D3 1 tab PO DAILY 06/03/17 03/20/18 [Calcium 600-Vit D3 400 Caplet] Lisinopril [Zestril] 20 mg PO DAILY 06/03/17 03/20/18 Loperamide [Imodium] 2 mg PO QID PRN 06/03/17 03/20/18 Multivitamins, Thera [Multivitamin 1 tab PO DAILY 06/03/17 03/20/18 (formulary)] Levofloxacin [Levaquin] 500 mg PO DAILY 03/18/18 03/20/18 predniSONE 10 mg PO BID 03/18/18 03/20/18 Gabapentin [Neurontin] 100 mg PO TID PRN 03/20/18 03/20/18 Previous Rx's Medication Instructions Recorded Magnesium Oxide [Mag-Ox] 400 mg PO DAILY #30 tablet 06/06/17 Allergies Allergy/AdvReac Type Severity Reaction Status Date / Time Penicillins Allergy Rash/Hives Verified 03/20/18 12:41 Review of Systems ROS Statement: Those systems with pertinent positive or pertinent negative responses have been documented in the HPI. ROS Other: All systems not noted in ROS Statement are negative. Past Medical History Past Medical History: Cancer, Hypertension Additional Past Medical History / Comment(s): cervical CA History of Any Multi-Drug Resistant Organisms: None Reported Past Surgical History: Cholecystectomy, Hernia Repair Additional Past Surgical History / Comment(s): umbilical hernia repair,. previous thoracentesis July 2017 Past Anesthesia/Blood Transfusion Reactions: No Reported Reaction Past Psychological History: No Psychological Hx Reported Smoking Status: Never smoker Past Alcohol Use History: None Reported Past Drug Use History: None Reported - Past Family History Sister(s) Family Medical History: Cancer Additional Family Medical History / Comment(s): Maternal grandmother breast cancer, maternal grandfather colon cancer General Exam - General Exam Comments Initial Comments: GENERAL: Patient is cachectic. Patient is nontoxic and well-hydrated and is in mild distress. However patient states this distresses her baseline dyspnea. ENT: Neck is soft and supple. No significant lymphadenopathy is noted. Oropharynx is clear. Moist mucous membranes. Neck has full range of motion without eliciting any pain. EYES: The sclera were anicteric and conjunctiva were pink and moist. Extraocular movements were intact and pupils were equal round and reactive to light. Eyelids were unremarkable. PULMONARY: Diminished breath sounds left base CARDIOVASCULAR: There is a regular rate and rhythm without any murmurs gallops or rubs. ABDOMEN: Soft and nontender with normal bowel sounds. No palpable organomegaly was noted. There is no palpable pulsatile mass. SKIN: Skin is clear with no lesions or rashes and otherwise unremarkable. NEUROLOGIC: Patient is alert and oriented x3. Cranial nerves II through XII are grossly intact. Motor and sensory are also intact. Normal speech, volume and content. Symmetrical smile. MUSCULOSKELETAL: Normal extremities with adequate strength and full range of motion. LYMPHATICS: No significant lymphadenopathy is noted PSYCHIATRIC: Normal psychiatric evaluation. Limitations: no limitations Course Vital Signs 03/20/18 03/20/18 03/20/18 09:30 10:28 10:37 Temperature Pulse Rate Pulse Rate [ 118 H 117 H 112 H Left Pulse Oximetery] Respiratory 20 20 20 Rate Blood Pressure Blood Pressure 149/91 119/65 93/71 [Left Arm Supine] O2 Sat by Pulse 93 L 100 100 Oximetry 03/20/18 03/20/18 03/20/18 10:45 11:25 12:04 Temperature 97.5 F L Pulse Rate 104 H Pulse Rate [ 102 H 92 Left Pulse Oximetery] Respiratory 20 20 18 Rate Blood Pressure 119/79 Blood Pressure 114/75 114/75 [Left Arm Supine] O2 Sat by Pulse 100 100 Oximetry 03/20/18 13:00 Temperature Pulse Rate Pulse Rate [ Left Pulse Oximetery] Respiratory Rate Blood Pressure 128/86 Blood Pressure [Left Arm Supine] O2 Sat by Pulse 98 Oximetry Medical Decision Making - Medical Decision Making Chest x-ray showed a pneumothorax unchanged from the previous EKG done this morning. I spoke with Dr. Ordaz about this he thought was a trapped lung secondary to a cancer in the lawn and therefore he did not feel that a chest tube was just at this time and wanted the patient to be observed overnight. Patient had an EKG done shows a sinus rhythm at 92 bpm AR interval is 98 QRS is 86 QT interval 328 QTC is 405. Patient's EKG patient's EKG shows ST segment depression in leads 1 to in precordial leads V4 through V6. I spoke with Dr. Sheppard she agreed to admit the patient she did insist on a Dr. Chi consult. - Lab Data Result diagrams: 03/20/18 13:54 03/20/18 13:54 Lab Results 03/20/18 03/20/18 03/20/18 Range/Units 09:40 09:40 13:54 WBC 9.7 (3.8-10.6) k/uL RBC 2.97 L (3.80-5.40) m/uL Hgb 9.8 L (11.4-16.0) gm/dL Hct 30.2 L (34.0-46.0) % MCV 101.7 H (80.0-100.0) fL MCH 32.9 (25.0-35.0) pg MCHC 32.4 (31.0-37.0) g/dL RDW 17.3 H (11.5-15.5) % Plt Count 130 L 93 L (150-450) k/uL Neutrophils % 87 % Lymphocytes % 4 % Monocytes % 7 % Eosinophils % 0 % Basophils % 0 % Neutrophils # 8.5 H (1.3-7.7) k/uL Lymphocytes # 0.3 L (1.0-4.8) k/uL Monocytes # 0.7 (0-1.0) k/uL Eosinophils # 0.0 (0-0.7) k/uL Basophils # 0.0 (0-0.2) k/uL Manual Slide Review Performed Polychromasia Present Hypochromasia Slight Poikilocytosis Moderate Anisocytosis Slight Macrocytosis Slight PT 14.3 H (9.0-12.0) sec INR 1.5 H (<1.2) APTT (22.0-30.0) sec Sodium (137-145) mmol/L Potassium (3.5-5.1) mmol/L Chloride (98-107) mmol/L Carbon Dioxide (22-30) mmol/L Anion Gap mmol/L BUN (7-17) mg/dL Creatinine (0.52-1.04) mg/dL Est GFR (CKD-EPI)AfAm (>60 ml/min/1.73 sqM) Est GFR (CKD-EPI)NonAf (>60 ml/min/1.73 sqM) Glucose (74-99) mg/dL Calcium (8.4-10.2) mg/dL Total Bilirubin (0.2-1.3) mg/dL AST (14-36) U/L ALT (9-52) U/L Alkaline Phosphatase (38-126) U/L Total Protein (6.3-8.2) g/dL Albumin (3.5-5.0) g/dL 03/20/18 03/20/18 Range/Units 13:54 13:54 WBC (3.8-10.6) k/uL RBC (3.80-5.40) m/uL Hgb (11.4-16.0) gm/dL Hct (34.0-46.0) % MCV (80.0-100.0) fL MCH (25.0-35.0) pg MCHC (31.0-37.0) g/dL RDW (11.5-15.5) % Plt Count (150-450) k/uL Neutrophils % % Lymphocytes % % Monocytes % % Eosinophils % % Basophils % % Neutrophils # (1.3-7.7) k/uL Lymphocytes # (1.0-4.8) k/uL Monocytes # (0-1.0) k/uL Eosinophils # (0-0.7) k/uL Basophils # (0-0.2) k/uL Manual Slide Review Polychromasia Hypochromasia Poikilocytosis Anisocytosis Macrocytosis PT 12.9 H (9.0-12.0) sec INR 1.4 H (<1.2) APTT 28.6 (22.0-30.0) sec Sodium 139 (137-145) mmol/L Potassium 3.6 (3.5-5.1) mmol/L Chloride 105 (98-107) mmol/L Carbon Dioxide 27 (22-30) mmol/L Anion Gap 7 mmol/L BUN 36 H (7-17) mg/dL Creatinine 0.89 (0.52-1.04) mg/dL Est GFR (CKD-EPI)AfAm 74 (>60 ml/min/1.73 sqM) Est GFR (CKD-EPI)NonAf 64 (>60 ml/min/1.73 sqM) Glucose 111 H (74-99) mg/dL Calcium 9.0 (8.4-10.2) mg/dL Total Bilirubin 0.5 (0.2-1.3) mg/dL AST 18 (14-36) U/L ALT 22 (9-52) U/L Alkaline Phosphatase 95 (38-126) U/L Total Protein 6.3 (6.3-8.2) g/dL Albumin 3.0 L (3.5-5.0) g/dL Disposition Clinical Impression: History of cervical cancer, Trapped lung Disposition: ADMITTED IP TO THIS HOSP Referrals: None,Stated [REFERRING] - 1-2 days Time of Disposition: 14:40
--- NOTE | 2018-03-20 14:14 | XR ---
EXAMINATION TYPE: XR chest 2V DATE OF EXAM: 03/20/2018 COMPARISON: Prior chest x-ray 03/20/2018 and earlier time. HISTORY: Postthoracentesis TECHNIQUE: Frontal and lateral views of the chest are obtained. FINDINGS: The lucency at the left lung base is again noted. Findings may represent trapped lung. Car diac mediastinal silhouette, pulmonary vascularity and vanessa are stable. Port-A-Cath is unchanged. The re are abnormal interstitial densities within the lungs. Abnormal density at the left lung base again seen. IMPRESSION: Pneumothorax post lung biopsy may represent trapped lung. Follow-up recommended.
[2018-03-20 14:26] LABS: Anisocytosis Slight; Basophils % (A) 0 %; Eosinophils % (A) 0 %; HCT 30.2 % (34.0-46.0); HGB 9.8 gm/dL (11.4-16.0); Hypochromasia Slight; Lymphocytes # (A) 0.3 k/uL (1.0-4.8); Lymphocytes % (A) 4 %; MCH 32.9 pg (25.0-35.0); MCHC 32.4 g/dL (31.0-37.0); MCV 101.7 fL (80.0-100.0); Macrocytosis Slight; Monocytes # (A) 0.7 k/uL (0-1.0); Monocytes % (A) 7 %; Neutrophils # (A) 8.5 k/uL (1.3-7.7); Neutrophils % (A) 87 %; Poikilocytosis Moderate; RBC 2.97 m/uL (3.80-5.40); RDW 17.3 % (11.5-15.5); WBC 9.7 k/uL (3.8-10.6)
[2018-03-20 14:31] LABS: INR 1.4 (<1.2); Partial Thromboplastin Time 28.6 sec (22.0-30.0); Prothrombin Time 12.9 sec (9.0-12.0)
[2018-03-20 14:44] LABS: Potassium 3.6 mmol/L (3.5-5.1); Total Bilirubin 0.5 mg/dL (0.2-1.3); Total Protein 6.3 g/dL (6.3-8.2)
[2018-03-20 14:47] LABS: Platelet Count 93 k/uL (150-450)
[2018-03-20 14:48] LABS: Polychromasia Present
[2018-03-20] MEDS ORDERED: SODIUM CHLORIDE 0.9% 1,000 ML IV ONE (14:55)
[2018-03-20 15:08] LABS: Color,BF Yellow
[2018-03-20 15:09] LABS: Appearance,BF Clear; Nucleated Cells, Body Fluid 39 /uL; RBC, Body Fluid 114 /uL
[2018-03-20 15:10] LABS: Creatine Kinase MB 1.6 ng/mL (0.0-2.4); Troponin I 0.024 ng/mL (0.000-0.034)
[2018-03-20 15:11] LABS: Mononuclear WBC,Body Fluid 93 %; Polynuclear WBC,Body Fluid 7 %; Total Cells Counted,Body Fluid 100
--- NOTE | 2018-03-20 16:07 | P.HPIM ---
History of Present Illness H&P Date: 03/20/18 Chief Complaint: Possible pneumothorax after thoracentesis 72-year-old female one of Dr. De Los Santos with patient with past medical history of cervical/uterine cancer was diagnosed recently with Dr. De Los Santos with was referred to Dr. Pena of her and referred to [facility] who decided for her best interest to go for radiation and some sort of chemotherapy. Patient has been doing chemotherapy with Dr. Garcia . She goes for intermittent thoracenteses for pleural effusion secondary to malignancy, and the radiologist that had To her catheter is worried that there might be an pneumothorax developing, when they have spoken to the radiologist, it's probably a trapped lung secondary to mind the lung and it was not really expanding displaced with the flu with once was, patient is no more short of breath. It was however the radiologist once her OBSERVED overnight, consult to pulmonary. The pulmonary was notified by the ER physician for this and was recommended to be sent home however with the ER physician and the radiologist they want her observed overnight with imaging studies in the morning. Review of Systems Constitutional: Reports as per HPI, Denies anorexia, Denies chills, Denies chronic headaches, Denies chronic pain, Denies daytime sleepiness, Denies fatigue, Denies fever, Denies lethargy, Denies malaise, Denies night sweats, Denies poor appetite, Denies sweats, Denies weakness, Denies weight gain, Denies weight loss Ears, nose, mouth and throat: Reports as per HPI, Denies ant. neck pain, Denies bleeding gums, Denies dental pain, Denies dysphagia, Denies epistaxis, Denies headache, Denies hoarseness, Denies mouth pain, Denies nasal congestion, Denies nasal discharge, Denies neck fullness/pressure, Denies neck lump, Denies nose pain, Denies odynophagia, Denies post-nasal drip, Denies sinus pain, Denies sinus pressure, Denies swelling in mouth, Denies swelling in throat, Denies sore throat, Denies vertigo, Denies voice changes Cardiovascular: Reports as per HPI, Denies chest pain, Denies claudication, Denies decreased exercise tolerance, Denies dyspnea on exertion, Denies edema, Denies high blood pressure, Denies irregular heart beat, Denies leg edema, Denies lightheadedness, Denies orthopnea, Denies palpitations, Denies paroxysmal nocturnal dyspnea, Denies phlebitis, Denies rapid heart beat, Denies shortness of breath, Denies syncope Respiratory: Reports as per HPI, Denies congestion, Denies cough, Denies cough with sputum, Denies dyspnea, Denies excessive sputum, Denies hemoptysis, Denies home oxygen, Denies pain, Denies pain on inspiration, Denies pleurisy, Denies respiratory infections, Denies sleep apnea, Denies snoring, Denies wheezing Gastrointestinal: Reports as per HPI, Denies abdominal pain, Denies belching, Denies bloating, Denies BRBPR, Denies change in bowel habits, Denies coffee ground emesis, Denies constipation, Denies diarrhea, Denies dyspepsia, Denies early satiety, Denies excessive gas, Denies heartburn, Denies hematemesis, Denies hematochezia, Denies indigestion, Denies jaundice, Denies lactose intolerance, Denies loss of appetite, Denies melena, Denies nausea, Denies vomiting Genitourinary: Reports as per HPI, Denies abnormal vaginal bleeding, Denies decreased libido, Denies difficulty conceiving, Denies difficulty voiding, Denies dysmenorrhea, Denies dyspareunia, Denies dysuria, Denies flank pain, Denies genital sores, Denies hematuria, Denies hot flashes, Denies incomplete emptying, Denies kidney stones, Denies menorrhagia, Denies mixed incontinence, Denies nocturia, Denies pelvic pain, Denies post void dribbling, Denies , Denies prolapse symptoms, Denies stress incontinence, Denies urge incontinence , Denies urgency, Denies urinary frequency, Denies vaginal discharge, Denies vaginal dryness, Denies vaginal itching, Denies vaginal odor Menstruation: Reports as per HPI, Denies amenorrhea, Denies amenorrhea on BC, Denies currently menstrual, Denies cycle < 21 days, Denies cycle > 35 days, Denies cycle variable, Denies menses 1-7 days, Denies menses 8 or > days, Denies menses variable, Denies period heavy, Denies period light, Denies period normal, Denies period spotting, Denies post hysterectomy, Denies postmenopausal , Denies premenarcheal Musculoskeletal: Reports as per HPI, Denies arm numbness/tingling, Denies atrophy, Denies fractures, Denies frequent falls, Denies gait dysfunction, Denies hot joints, Denies leg numbness/tingling, Denies limitation of motion, Denies loss of height, Denies low back pain, Denies morning stiffness, Denies muscle cramps, Denies muscle weakness, Denies myalgias, Denies neck pain, Denies neck stiffness, Denies prior amputations, Denies redness of joints, Denies shooting arm pain, Denies shooting leg pain Integumentary: Reports as per HPI, Denies acne, Denies boils, Denies brittle nails, Denies change in hair/nails, Denies color changes, Denies darkening of skin, Denies depigmentation, Denies dryness, Denies foot/leg ulcers, Denies growths, Denies hirsutism, Denies lesions, Denies onychomycosis, Denies pruritus , Denies rash, Denies sores, Denies striae, Denies unusual bruising, Denies wounds Neurological: Reports as per HPI, Denies aphasia, Denies ataxia, Denies balance difficulties, Denies burning pain, Denies change in mentation, Denies change in smell/taste, Denies change in speech, Denies confusion, Denies convulsions, Denies double vision, Denies gait dysfunction, Denies head injury, Denies headaches, Denies hearing difficulties, Denies lack of coordination, Denies loss of vision, Denies memory loss, Denies migraines, Denies motor disturbance, Denies numbness, Denies paralysis, Denies paresthesias, Denies seizures, Denies sensory deficit, Denies spasticity, Denies syncope, Denies tic, Denies tingling , Denies transient paralysis, Denies tremors, Denies vertigo, Denies weakness, Denies visual changes Psychiatric: Reports as per HPI, Denies anhedonia, Denies anxiety, Denies anxiety attacks, Denies change in appetite, Denies change in libido, Denies change in sleep habits, Denies confusion, Denies depression, Denies difficulty concentrating, Denies disorientation, Denies hallucinations, Denies hopelessness , Denies hypersomnia, Denies insomnia, Denies irritability, Denies memory loss, Denies mood swings, Denies paranoia, Denies sadness/tearfulness, Denies sleep disturbances, Denies suicidal ideation Endocrine: Reports as per HPI Hematologic/Lymphatic: Reports as per HPI Allergic/Immunologic: Reports as per HPI, Denies allergic rhinitis, Denies anaphylaxis, Denies angioedema, Denies gluten intolerance, Denies persistent infections, Denies seasonal allergies, Denies urticaria, Denies wheezing Past Medical History Past Medical History: Cancer, Hypertension Additional Past Medical History / Comment(s): cervical CA History of Any Multi-Drug Resistant Organisms: None Reported Past Surgical History: Cholecystectomy, Hernia Repair Additional Past Surgical History / Comment(s): umbilical hernia repair,. previous thoracentesis July 2017 Past Anesthesia/Blood Transfusion Reactions: No Reported Reaction Past Psychological History: No Psychological Hx Reported Smoking Status: Never smoker Past Alcohol Use History: None Reported Past Drug Use History: None Reported - Past Family History Sister(s) Family Medical History: Cancer Additional Family Medical History / Comment(s): Maternal grandmother breast cancer, maternal grandfather colon cancer Medications and Allergies Home Medications Medication Instructions Recorded Confirmed Type Calcium Carbonate/Vitamin D3 1 tab PO DAILY 06/03/17 03/20/18 History [Calcium 600-Vit D3 400 Caplet] Lisinopril [Zestril] 20 mg PO DAILY 06/03/17 03/20/18 History Loperamide [Imodium] 2 mg PO QID PRN 06/03/17 03/20/18 History Multivitamins, Thera [Multivitamin 1 tab PO DAILY 06/03/17 03/20/18 History (formulary)] Magnesium Oxide [Mag-Ox] 400 mg PO DAILY #30 tablet 06/06/17 03/20/18 Rx Levofloxacin [Levaquin] 500 mg PO DAILY 03/18/18 03/20/18 History predniSONE 10 mg PO BID 03/18/18 03/20/18 History Gabapentin [Neurontin] 100 mg PO TID PRN 03/20/18 03/20/18 History Allergies Allergy/AdvReac Type Severity Reaction Status Date / Time Penicillins Allergy Rash/Hives Verified 03/20/18 12:41 Physical Exam Vitals: Vital Signs Temp Pulse Pulse Resp BP BP Pulse Ox 03/20/18 15:00 108 H 24 128/80 92 L 03/20/18 13:00 128/86 98 03/20/18 12:04 97.5 F L 104 H 18 119/79 100 03/20/18 11:25 92 20 114/75 100 03/20/18 10:45 102 H 20 114/75 03/20/18 10:37 112 H 20 93/71 100 03/20/18 10:28 117 H 20 119/65 100 03/20/18 09:30 118 H 20 149/91 93 L Intake and Output 03/20/18 03/20/18 03/20/18 06:59 14:59 22:59 Other: Weight 58.513 kg - Constitutional General appearance: cooperative, no acute distress - EENT Eyes: anicteric sclerae, EOMI, PERRLA, dentition normal, normal appearance ENT: NA/AT, normal oropharynx - Neck Neck: normal ROM - Respiratory Respiratory: bilateral: CTA, negative: diminished, dullness, rales - Cardiovascular Rhythm: regular Heart sounds: normal: S1, S2 Abnormal Heart Sounds: no systolic murmur, no diastolic murmur, no rub, no S3 Gallop, no S4 Gallop, no click, no other - Gastrointestinal General gastrointestinal: decreased bowel sounds, normal bowel sounds, soft - Integumentary Integumentary: decreased turgor, normal - Neurologic Neurologic: CNII-XII intact - Musculoskeletal Musculoskeletal: gait normal, strength equal bilaterally - Psychiatric Psychiatric: A&O x's 3, appropriate affect, intact judgment & insight Results CBC & Chem 7: 03/20/18 13:54 03/20/18 13:54 Labs: Abnormal Lab Results - Last 24 Hours (Table) 03/20/18 03/20/18 03/20/18 Range/Units 09:40 09:40 13:54 RBC (3.80-5.40) m/uL Hgb (11.4-16.0) gm/dL Hct (34.0-46.0) % MCV (80.0-100.0) fL RDW (11.5-15.5) % Plt Count 130 L (150-450) k/uL Neutrophils # (1.3-7.7) k/uL Lymphocytes # (1.0-4.8) k/uL PT 14.3 H (9.0-12.0) sec INR 1.5 H (<1.2) BUN (7-17) mg/dL Glucose (74-99) mg/dL Total Creatine Kinase 23 L (30-135) U/L Albumin (3.5-5.0) g/dL 03/20/18 03/20/18 03/20/18 Range/Units 13:54 13:54 13:54 RBC 2.97 L (3.80-5.40) m/uL Hgb 9.8 L (11.4-16.0) gm/dL Hct 30.2 L (34.0-46.0) % MCV 101.7 H (80.0-100.0) fL RDW 17.3 H (11.5-15.5) % Plt Count 93 L (150-450) k/uL Neutrophils # 8.5 H (1.3-7.7) k/uL Lymphocytes # 0.3 L (1.0-4.8) k/uL PT 12.9 H (9.0-12.0) sec INR 1.4 H (<1.2) BUN 36 H (7-17) mg/dL Glucose 111 H (74-99) mg/dL Total Creatine Kinase (30-135) U/L Albumin 3.0 L (3.5-5.0) g/dL Laboratory Results WBC 9.7 k/uL (3.8-10.6) 03/20/18 13:54 RBC 2.97 m/uL (3.80-5.40) L 03/20/18 13:54 Hgb 9.8 gm/dL (11.4-16.0) L 03/20/18 13:54 Hct 30.2 % (34.0-46.0) L 03/20/18 13:54 MCV 101.7 fL (80.0-100.0) H 03/20/18 13:54 MCH 32.9 pg (25.0-35.0) 03/20/18 13:54 MCHC 32.4 g/dL (31.0-37.0) 03/20/18 13:54 RDW 17.3 % (11.5-15.5) H 03/20/18 13:54 Plt Count 93 k/uL (150-450) L 03/20/18 13:54 Neutrophils % 87 % 03/20/18 13:54 Lymphocytes % 4 % 03/20/18 13:54 Monocytes % 7 % 03/20/18 13:54 Eosinophils % 0 % 03/20/18 13:54 Basophils % 0 % 03/20/18 13:54 Neutrophils # 8.5 k/uL (1.3-7.7) H 03/20/18 13:54 Lymphocytes # 0.3 k/uL (1.0-4.8) L 03/20/18 13:54 Monocytes # 0.7 k/uL (0-1.0) 03/20/18 13:54 Eosinophils # 0.0 k/uL (0-0.7) 03/20/18 13:54 Basophils # 0.0 k/uL (0-0.2) 03/20/18 13:54 Manual Slide Review Performed 03/20/18 13:54 Polychromasia Present 03/20/18 13:54 Hypochromasia Slight 03/20/18 13:54 Poikilocytosis Moderate 03/20/18 13:54 Anisocytosis Slight 03/20/18 13:54 Macrocytosis Slight 03/20/18 13:54 PT 12.9 sec (9.0-12.0) H 03/20/18 13:54 INR 1.4 (<1.2) H 03/20/18 13:54 APTT 28.6 sec (22.0-30.0) 03/20/18 13:54 Sodium 139 mmol/L (137-145) 03/20/18 13:54 Potassium 3.6 mmol/L (3.5-5.1) 03/20/18 13:54 Chloride 105 mmol/L (98-107) 03/20/18 13:54 Carbon Dioxide 27 mmol/L (22-30) 03/20/18 13:54 Anion Gap 7 mmol/L 03/20/18 13:54 BUN 36 mg/dL (7-17) H 03/20/18 13:54 Creatinine 0.89 mg/dL (0.52-1.04) 03/20/18 13:54 Est GFR (CKD-EPI)AfAm 74 (>60 ml/min/1.73 sqM) 03/20/18 13:54 Est GFR (CKD-EPI)NonAf 64 (>60 ml/min/1.73 sqM) 03/20/18 13:54 Glucose 111 mg/dL (74-99) H 03/20/18 13:54 Calcium 9.0 mg/dL (8.4-10.2) 03/20/18 13:54 Total Bilirubin 0.5 mg/dL (0.2-1.3) 03/20/18 13:54 AST 18 U/L (14-36) 03/20/18 13:54 ALT 22 U/L (9-52) 03/20/18 13:54 Alkaline Phosphatase 95 U/L (38-126) 03/20/18 13:54 Total Creatine Kinase 23 U/L (30-135) L 03/20/18 13:54 CK-MB (CK-2) 1.6 ng/mL (0.0-2.4) 03/20/18 13:54 CK-MB (CK-2) Rel Index 7.0 03/20/18 13:54 Troponin I 0.024 ng/mL (0.000-0.034) 03/20/18 13:54 Total Protein 6.3 g/dL (6.3-8.2) 03/20/18 13:54 Albumin 3.0 g/dL (3.5-5.0) L 03/20/18 13:54 Fluid Source Pleural 03/20/18 10:29 Fluid Color Yellow 03/20/18 10:29 Fluid Appearance Clear 03/20/18 10:29 Fluid RBC 114 /uL 03/20/18 10:29 Fluid Nucleated Cells 39 /uL 03/20/18 10:29 Fluid Polynuclear WBCs 7 % 03/20/18 10:29 Fluid Mononuclear WBCs 93 % 03/20/18 10:29 Thrombosis Risk Factor Assmnt - DVT/VTE Prophylaxis DVT/VTE Prophylaxis: Pharmacologic Prophylaxis ordered Assessment and Plan Plan: 1. Pleural effusion status outpatient based ultrasound guided post thoracentesisBalyne 05/19/2017 possible pneumothorax against Lung him a patient will be observed overnight, consult with pulmonary, CT chest high resolution, evaluate for further anatomic abnormalities. 2 anemia with microcytosis, and thrombocytopenia, chronic hemoglobin is stable. , Currently 93 on admission With no sign of neutropenia currently this is most likely side effect from chemotherapy repeat CBC and watch for any infection. 3 advanced stage III uterine cancer: Patient is doing chemotherapy with oncology. 4 hypertension: Has been on Zestril 20 mg daily 5. Moderate protein calorie malnutrition, on protein supplementation. 8 GI prophylaxis: Patient will be on Pepcid 20 mg daily. 9 DVT prophylaxis: Patient will be on heparin 5000 units subcutaneous twice a day. CODE STATUS: Full code.
[2018-03-20] MEDS ORDERED: LOPERAMIDE 2 MG CAP PO PRN (17:42)
[2018-03-20] MEDS ORDERED: GABAPENTIN 100 MG CAP PO PRN (17:42)
[2018-03-20 18:19] VITALS: BMI 22.6
[2018-03-20] MEDS: SODIUM CHLORIDE 0.9% 1,000 ML IV SCH (18:22)
--- NOTE | 2018-03-20 19:24 | CT ---
EXAMINATION TYPE: CT chest wo con DATE OF EXAM: 03/20/2018 COMPARISON: 03/04/2018 HISTORY: Shortness of breath following procedure today CT DLP: 220.3 mGycm. Automated Exposure Control for Dose Reduction was Utilized. TECHNIQUE: CT scan of the thorax is performed without IV contrast. FINDINGS: There are bilateral pleural effusions. There is extensive bilateral nodular infiltrate in both lungs. There are multiple masses that measure up to 2 cm in greatest dimension. There is a 25% left pneumot horax. This pneumothorax is probably not changed compared to the exam earlier today at 2:00 PM. There is no mediastinal adenopathy. Heart appears enlarged. Thoracic aorta is atheromatous. There are clips from cholecystectomy. There are mild spondylotic changes in the thoracic spine. I see no focal bone destruction. IMPRESSION: There is left sided pneumothorax at the lung bases probably not changed compared to exam 3 hours ago. Extensive nodular pulmonary infiltrates suspicious for metastatic disease. Bilateral pleural effusion s. The pleural fluid and pulmonary nodules are not significantly different than 03/04/2018 CT scan.
[2018-03-20 19:50] LABS: Total Protein, Body Fluid 3300 mg/dL
[2018-03-20] MEDS: predniSONE 10 MG TAB PO SCH (21:11)
[2018-03-21] MEDS ORDERED: HYDROmorphone 1 MG/ML 1 ML SYRINGE IVP PRN (01:45)
[2018-03-21] MEDS ORDERED: ACETAMINOPHEN TAB 325 MG TAB PO PRN (01:47)
--- NOTE | 2018-03-21 09:21 | XR ---
EXAMINATION TYPE: XR chest 2V DATE OF EXAM: 03/21/2018 COMPARISON: 03/20/2018 HISTORY: Shortness of breath TECHNIQUE: Frontal and lateral views of the chest are obtained. FINDINGS: Scattered senescent parenchymal changes noted. Hyperinflation compatible with COPD. Patchy upper lobe infiltrates noted. Small right-sided pleural effusion. Loculated left basilar pneum othorax is slightly improved. Heart size is stable. Mediastinal structures are stable and grossly unremarkable. No evidence for hilar prominence. Degenerative changes dorsal spine. IMPRESSION: 1. Patchy upper lobe infiltrates noted. Small right-sided pleural effusion. Loculated left basilar pn eumothorax is slightly improved.
[2018-03-21] MEDS: predniSONE 10 MG TAB PO SCH ×2 (10:02→20:39)
[2018-03-21] MEDS: LEVOFLOXACIN 500 MG TAB PO SCH (10:02)
[2018-03-21] MEDS: CALCIUM CARB-VIT D 500MG-200UN 1 EACH TAB PO SCH (10:02)
[2018-03-21] MEDS: LISINOPRIL 10 MG TAB PO SCH (10:03)
[2018-03-21] MEDS: MAGNESIUM OXIDE 400 MG TAB PO SCH (10:03)
[2018-03-21] MEDS: MULTIVITAMINS, THERA 1 EACH TAB PO SCH (11:10)
--- NOTE | 2018-03-21 13:14 | P.GSCN ---
History of Present Illness Consult date: 03/21/18 Reason for Consult: Left-sided pneumothorax. Requesting physician: Archie Chi History of present illness: This is a 72-year-old female patient who is followed by Dr. De Los Santos on an outpatient basis. The patient has a past medical history significant for advanced stage III cervical cancer and hypertension. She is also been followed by Dr. Garcia for her oncology care. She reports she finished her chemotherapy treatment about 8 weeks ago. She has had recurrent malignant effusions requiring intermittent thoracentesis. Her last thoracentesis was completed in July [address] Chi from pulmonary medicine with roughly 1.7 L of straw-colored fluid drained from her left pleural space. Recently, she's had complaints of progressive shortness of breath and was brought into the hospital to undergo a left thoracentesis to be performed by interventional radiology. Subsequently she underwent a left ultrasound-guided thoracentesis to her left chest with 400 mL of serous fluid removed. Post thoracentesis a chest x-ray was completed which demonstrated a loculated left lateral base pneumothorax. For further evaluation a computed tomography scan of her chest was completed which we demonstrated a left-sided pneumothorax at the lung base. The patient was subsequently admitted to the hospital for further observation and Dr. Bernard Solis from cardiothoracic surgery consulted for further evaluation and recommendations. Review of Systems A 14 point review of systems was completed and was negative except as mentioned in HPI. Past Medical History Past Medical History: Cancer, Hypertension Additional Past Medical History / Comment(s): Cervical Cancer Stage 3 History of Any Multi-Drug Resistant Organisms: None Reported Past Surgical History: Cholecystectomy, Hernia Repair Additional Past Surgical History / Comment(s): umbilical hernia repair,. previous thoracentesis July 2017 of 1.7 L of straw-colored fluid removed Past Anesthesia/Blood Transfusion Reactions: No Reported Reaction Past Psychological History: No Psychological Hx Reported Smoking Status: Never smoker Past Alcohol Use History: None Reported Past Drug Use History: None Reported - Past Family History Sister(s) Family Medical History: Cancer Additional Family Medical History / Comment(s): Maternal grandmother breast cancer, maternal grandfather colon cancer Father Additional Family Medical History / Comment(s): Heart disease Medications and Allergies Home Medications Medication Instructions Recorded Confirmed Type Calcium Carbonate/Vitamin D3 1 tab PO DAILY 06/03/17 03/20/18 History [Calcium 600-Vit D3 400 Caplet] Loperamide [Imodium] 2 mg PO QID PRN 06/03/17 03/20/18 History Multivitamins, Thera [Multivitamin 1 tab PO DAILY 06/03/17 03/20/18 History (formulary)] Magnesium Oxide [Mag-Ox] 400 mg PO DAILY #30 tablet 06/06/17 03/20/18 Rx Levofloxacin [Levaquin] 500 mg PO DAILY 03/18/18 03/20/18 History predniSONE 10 mg PO BID 03/18/18 03/20/18 History Gabapentin [Neurontin] 100 mg PO TID PRN 03/20/18 03/20/18 History Lisinopril [Zestril] 10 mg PO DAILY #0 03/21/18 03/20/18 Rx Allergies Allergy/AdvReac Type Severity Reaction Status Date / Time Penicillins Allergy Rash/Hives Verified 03/20/18 12:41 Surgical - Exam Vital Signs Pulse Resp BP Pulse Ox 118 H 20 149/91 93 L 03/20/18 09:30 03/20/18 09:30 03/20/18 09:30 03/20/18 09:30 - General well developed, no distress, no pain, chronically ill - Eyes PERRL, normal ocular movement - ENT normal pinna, normal nares, normal mucosa, no hearing loss, no congestion - Neck Neck is supple, no lymphadenopathy. no masses, no bruits, trachea midline, no venous distension - Respiratory Lungs sounds essentially clear to her left lobes, diminished to her right lobes. Respirations are symmetrical and nonlabored. Oxygen saturation is are 95% on 3 L nasal cannula. - Cardiovascular Regular rhythm and rate. S1 and S2 present, positive systolic murmur 2/6. No edema present. - Abdomen Abdomen is soft, nontender and slightly distended. Hypoactive bowel sounds all 4 abdominal quadrants. No organomegaly, no guarding or rigidity. - Genitourinary Deferred - Rectum Deferred - Integumentary no rash, no growths, no abnormal pigmentation - Neurologic normal coordination, normal sensation - Musculoskeletal strength equally bilateral. normal gait - Psychiatric oriented to time, oriented to person, oriented to place, speech is normal, memory intact Results - Labs 03/20/18 13:54 03/20/18 13:54 Abnormal Lab Results - Last 24 Hours (Table) 03/20/18 03/20/18 03/20/18 Range/Units 13:54 13:54 13:54 RBC 2.97 L (3.80-5.40) m/uL Hgb 9.8 L (11.4-16.0) gm/dL Hct 30.2 L (34.0-46.0) % MCV 101.7 H (80.0-100.0) fL RDW 17.3 H (11.5-15.5) % Plt Count 93 L (150-450) k/uL Neutrophils # 8.5 H (1.3-7.7) k/uL Lymphocytes # 0.3 L (1.0-4.8) k/uL PT (9.0-12.0) sec INR (<1.2) BUN 36 H (7-17) mg/dL Glucose 111 H (74-99) mg/dL Total Creatine Kinase 23 L (30-135) U/L Albumin 3.0 L (3.5-5.0) g/dL 03/20/18 Range/Units 13:54 RBC (3.80-5.40) m/uL Hgb (11.4-16.0) gm/dL Hct (34.0-46.0) % MCV (80.0-100.0) fL RDW (11.5-15.5) % Plt Count (150-450) k/uL Neutrophils # (1.3-7.7) k/uL Lymphocytes # (1.0-4.8) k/uL PT 12.9 H (9.0-12.0) sec INR 1.4 H (<1.2) BUN (7-17) mg/dL Glucose (74-99) mg/dL Total Creatine Kinase (30-135) U/L Albumin (3.5-5.0) g/dL Microbiology - Last 24 Hours (Table) 03/20/18 10:29 Gram Stain - Preliminary Pleural Fluid Body Fluid Culture - Preliminary Diabetes panel 03/20/18 Range/Units 13:54 Sodium 139 (137-145) mmol/L Potassium 3.6 (3.5-5.1) mmol/L Chloride 105 (98-107) mmol/L Carbon Dioxide 27 (22-30) mmol/L BUN 36 H (7-17) mg/dL Creatinine 0.89 (0.52-1.04) mg/dL Glucose 111 H (74-99) mg/dL Calcium 9.0 (8.4-10.2) mg/dL AST 18 (14-36) U/L ALT 22 (9-52) U/L Alkaline Phosphatase 95 (38-126) U/L Total Protein 6.3 (6.3-8.2) g/dL Albumin 3.0 L (3.5-5.0) g/dL Calcium panel 03/20/18 Range/Units 13:54 Calcium 9.0 (8.4-10.2) mg/dL Albumin 3.0 L (3.5-5.0) g/dL Pituitary panel 03/20/18 Range/Units 13:54 Sodium 139 (137-145) mmol/L Potassium 3.6 (3.5-5.1) mmol/L Chloride 105 (98-107) mmol/L Carbon Dioxide 27 (22-30) mmol/L BUN 36 H (7-17) mg/dL Creatinine 0.89 (0.52-1.04) mg/dL Glucose 111 H (74-99) mg/dL Calcium 9.0 (8.4-10.2) mg/dL Adrenal panel 03/20/18 Range/Units 13:54 Sodium 139 (137-145) mmol/L Potassium 3.6 (3.5-5.1) mmol/L Chloride 105 (98-107) mmol/L Carbon Dioxide 27 (22-30) mmol/L BUN 36 H (7-17) mg/dL Creatinine 0.89 (0.52-1.04) mg/dL Glucose 111 H (74-99) mg/dL Calcium 9.0 (8.4-10.2) mg/dL Total Bilirubin 0.5 (0.2-1.3) mg/dL AST 18 (14-36) U/L ALT 22 (9-52) U/L Alkaline Phosphatase 95 (38-126) U/L Total Protein 6.3 (6.3-8.2) g/dL Albumin 3.0 L (3.5-5.0) g/dL - Imaging Chest x-ray: report reviewed, image reviewed CT scan - chest: report reviewed, image reviewed Assessment and Plan (1) Hypertension Current Visit: Yes Status: Acute Code(s): I10 - ESSENTIAL (PRIMARY) HYPERTENSION SNOMED Code(s): 97253538 (2) History of cervical cancer Current Visit: Yes Status: Acute Code(s): Z85.41 - PERSONAL HISTORY OF MALIGNANT NEOPLASM OF CERVIX UTERI SNOMED Code(s): 703093731 Plan: The patient was seen and examined. Her chart and diagnostics were reviewed. She was seen and examined by Dr. Solis from cardiothoracic surgery. Dr. Solis feels like her pneumothorax is an ex vacuo and no surgical intervention or chest tube is needed at this time. We have encouraged use of her incentive spirometry and she can be discharged home when okay with her primary care service. We will follow her on a when necessary status. Thank you Dr. Chi for this consult and we will look forward to working with you in the care of your patient. Time with Patient: Greater than 30
[2018-03-21] MEDS: SODIUM CHLORIDE 0.9% 1,000 ML IV SCH (14:21)
--- NOTE | 2018-03-21 18:22 | P.PN ---
Subjective Progress Note Date: 03/21/18 Principal diagnosis: Limited pneumothorax 20% 72-year-old female one of Dr. De Los Santos with patient with past medical history of cervical/uterine cancer was diagnosed recently with Dr. De Los Santos with was referred to Dr. Pena of her and referred to [facility] oncology who decided for her best interest to go for radiation and some sort of chemotherapy. Patient has been doing chemotherapy with Dr. Garcia . She goes for intermittent thoracenteses for pleural effusion secondary to malignancy, and the radiologist that had To her catheter is worried that there might be an pneumothorax developing, when they have spoken to the radiologist, it's probably a trapped lung secondary to mind the lung and it was not really expanding displaced with the flu with once was, patient is no more short of breath. It was however the radiologist once her OBSERVED overnight, consult to pulmonary. The pulmonary was notified by the ER physician for this and was recommended to be sent home however with the ER physician and the radiologist they want her observed overnight with imaging studies in the morning. 03/21, CAT scan of the chest was done that shows sensitive no acute pulmonary infiltrate suspicious for metastatic disease, bilateral pleural effusion, 25% left pneumothorax, patient was seen by Dr. Solis cardiovascular surgeon, x- rays this morning showed improvement of the pneumothorax, general surgery did not think this would need to be surgically managed, they feel that the pneumothorax is ex vacuo, patient was requested to ambulate prior to discharge however she does have shortness of breath on exertion, she still requires oxygen which is new, pulse oximetry on room air would be monitored for ambulation. Were going to attempt to discharge patient in the morning instead Objective - Vital Signs Vital signs: Vital Signs Temp 97.4 F L 03/21/18 14:39 Pulse 93 03/21/18 14:39 Resp 20 03/21/18 14:39 BP 116/69 03/21/18 14:39 Pulse Ox 99 03/21/18 14:39 Intake & Output 03/20/18 03/21/18 03/21/18 18:59 06:59 18:59 Weight 58 kg 58 kg Other: # Voids 2 2 # Bowel Movements 1 - Constitutional General appearance: Present: cooperative, mild distress, thin - EENT Eyes: Present: anicteric sclerae, PERRLA, dentition normal ENT: Present: hearing grossly normal, NA/AT, normal oropharynx - Neck Neck: Present: normal ROM. Absent: lymphadenopathy, other, rigidity, stridor, thyromegaly - Respiratory Respiratory: bilateral: CTA, diminished, negative: dullness, rales, rhonchi, wheezing - Cardiovascular Rhythm: regular Heart sounds: normal: S1, S2 Abnormal Heart Sounds: Absent: systolic murmur, diastolic murmur, rub, S3 Gallop , S4 Gallop, click, other - Gastrointestinal General gastrointestinal: Present: decreased bowel sounds, soft - Integumentary Integumentary: Present: decreased turgor, normal - Neurologic Neurologic: Present: CNII-XII intact - Musculoskeletal Musculoskeletal: Present: gait normal, generalized weakness, strength equal bilaterally - Psychiatric Psychiatric: Present: A&O x's 3, appropriate affect, intact judgment & insight - Allied health notes Allied health notes reviewed: nursing - Labs CBC & Chem 7: 03/20/18 13:54 03/20/18 13:54 Labs: Microbiology - Last 24 Hours (Table) 03/20/18 10:29 Gram Stain - Preliminary Pleural Fluid Body Fluid Culture - Preliminary Laboratory Results WBC 9.7 k/uL (3.8-10.6) 03/20/18 13:54 RBC 2.97 m/uL (3.80-5.40) L 03/20/18 13:54 Hgb 9.8 gm/dL (11.4-16.0) L 03/20/18 13:54 Hct 30.2 % (34.0-46.0) L 03/20/18 13:54 MCV 101.7 fL (80.0-100.0) H 03/20/18 13:54 MCH 32.9 pg (25.0-35.0) 03/20/18 13:54 MCHC 32.4 g/dL (31.0-37.0) 03/20/18 13:54 RDW 17.3 % (11.5-15.5) H 03/20/18 13:54 Plt Count 93 k/uL (150-450) L 03/20/18 13:54 Neutrophils % 87 % 03/20/18 13:54 Lymphocytes % 4 % 03/20/18 13:54 Monocytes % 7 % 03/20/18 13:54 Eosinophils % 0 % 03/20/18 13:54 Basophils % 0 % 03/20/18 13:54 Neutrophils # 8.5 k/uL (1.3-7.7) H 03/20/18 13:54 Lymphocytes # 0.3 k/uL (1.0-4.8) L 03/20/18 13:54 Monocytes # 0.7 k/uL (0-1.0) 03/20/18 13:54 Eosinophils # 0.0 k/uL (0-0.7) 03/20/18 13:54 Basophils # 0.0 k/uL (0-0.2) 03/20/18 13:54 Manual Slide Review Performed 03/20/18 13:54 Polychromasia Present 03/20/18 13:54 Hypochromasia Slight 03/20/18 13:54 Poikilocytosis Moderate 03/20/18 13:54 Anisocytosis Slight 03/20/18 13:54 Macrocytosis Slight 03/20/18 13:54 PT 12.9 sec (9.0-12.0) H 03/20/18 13:54 INR 1.4 (<1.2) H 03/20/18 13:54 APTT 28.6 sec (22.0-30.0) 03/20/18 13:54 Sodium 139 mmol/L (137-145) 03/20/18 13:54 Potassium 3.6 mmol/L (3.5-5.1) 03/20/18 13:54 Chloride 105 mmol/L (98-107) 03/20/18 13:54 Carbon Dioxide 27 mmol/L (22-30) 03/20/18 13:54 Anion Gap 7 mmol/L 03/20/18 13:54 BUN 36 mg/dL (7-17) H 03/20/18 13:54 Creatinine 0.89 mg/dL (0.52-1.04) 03/20/18 13:54 Est GFR (CKD-EPI)AfAm 74 (>60 ml/min/1.73 sqM) 03/20/18 13:54 Est GFR (CKD-EPI)NonAf 64 (>60 ml/min/1.73 sqM) 03/20/18 13:54 Glucose 111 mg/dL (74-99) H 03/20/18 13:54 Calcium 9.0 mg/dL (8.4-10.2) 03/20/18 13:54 Total Bilirubin 0.5 mg/dL (0.2-1.3) 03/20/18 13:54 AST 18 U/L (14-36) 03/20/18 13:54 ALT 22 U/L (9-52) 03/20/18 13:54 Alkaline Phosphatase 95 U/L (38-126) 03/20/18 13:54 Total Creatine Kinase 23 U/L (30-135) L 03/20/18 13:54 CK-MB (CK-2) 1.6 ng/mL (0.0-2.4) 03/20/18 13:54 CK-MB (CK-2) Rel Index 7.0 03/20/18 13:54 Troponin I 0.024 ng/mL (0.000-0.034) 03/20/18 13:54 Total Protein 6.3 g/dL (6.3-8.2) 03/20/18 13:54 Albumin 3.0 g/dL (3.5-5.0) L 03/20/18 13:54 Fluid Source Pleural 03/20/18 10:29 Fluid Color Yellow 03/20/18 10:29 Fluid Appearance Clear 03/20/18 10:29 Fluid RBC 114 /uL 03/20/18 10:29 Fluid Nucleated Cells 39 /uL 03/20/18 10:29 Fluid Polynuclear WBCs 7 % 03/20/18 10:29 Fluid Mononuclear WBCs 93 % 03/20/18 10:29 Body Fluid Protein Source Pleural Fluid 03/20/18 10:29 Fluid Total Protein 3300 mg/dL 03/20/18 10:29 Assessment and Plan Plan: 1. Pleural effusion status outpatient based ultrasound guided post thoracentesis, 03/19/2018 possible pneumothorax against trap Lung as patient has shortness of breath on exertion, which is new, home O2 might be needed ambulatory pulse ox requested, as it is the holidays, it will be difficult to obtain a device for home,appreciagte consult from thoracic surgery , no plans for any surgical intervention, ex vacuo anatomical changes noted, medical management incentive spirometry CT chest high resolution, report as above 2 anemia with microcytosis, and thrombocytopenia, chronic hemoglobin is stable. , Currently 93 on admission With no sign of neutropenia currently this is most likely side effect from chemotherapy repeat CBC and watch for any infection. 3 advanced stage III uterine cancer: Patient is doing chemotherapy with oncology. 4 hypertension: Has been on Zestril 20 mg daily 5. Moderate protein calorie malnutrition, on protein supplementation. 8 GI prophylaxis: Patient will be on Pepcid 20 mg daily. 9 DVT prophylaxis: Patient will be on heparin 5000 units subcutaneous twice a day. CODE STATUS: Full code.
[2018-03-21] MEDS: ALBUTEROL NEBULIZED 2.5 MG/3 ML INHALATION PRN (19:03)
[2018-03-21] MEDS: BUDESONIDE 0.5 MG/2 ML NEBU INHALATION SCH (19:03)
[2018-03-22] MEDS: BUDESONIDE 0.5 MG/2 ML NEBU INHALATION SCH ×2 (07:08→22:01)
[2018-03-22] MEDS: ALBUTEROL NEBULIZED 2.5 MG/3 ML INHALATION PRN ×2 (07:08→11:18)
[2018-03-22] MEDS: LISINOPRIL 10 MG TAB PO SCH (08:03)
[2018-03-22] MEDS: CALCIUM CARB-VIT D 500MG-200UN 1 EACH TAB PO SCH (08:03)
[2018-03-22] MEDS: MAGNESIUM OXIDE 400 MG TAB PO SCH (08:04)
[2018-03-22] MEDS: predniSONE 10 MG TAB PO SCH ×2 (08:04→20:07)
[2018-03-22] MEDS: LEVOFLOXACIN 500 MG TAB PO SCH (08:04)
[2018-03-22] MEDS: SODIUM CHLORIDE 0.9% 1,000 ML IV SCH (08:04)
[2018-03-22] MEDS: MULTIVITAMINS, THERA 1 EACH TAB PO SCH (11:19)
--- NOTE | 2018-03-22 14:53 | NM ---
EXAMINATION TYPE: NM pul vent and perfuse DATE OF EXAM: 03/22/2018 COMPARISON: CT chest 03/20/2018, chest x-ray 03/21/2018 HISTORY: Hypoxemia, pneumothorax and metastatic disease TECHNIQUE: Utilizing inhalation of 65.5 mCi Tc 99m DTPA aerosol and intravenous injection of 5.31 mC i of Tc 99m MAA, ventilation and perfusion images are acquired post injection in multiple projections . FINDINGS: Diffuse decreased reaffirms of uptake is present throughout the left lung on ventilation and perfusio n imaging. No ventilation/perfusion mismatches noted in either lung. IMPRESSION: Intermediate probability for pulmonary embolism.
--- NOTE | 2018-03-22 15:54 | P.PN ---
Subjective Progress Note Date: 03/22/18 72-year-old female one of Dr. De Los Santos with patient with past medical history of cervical/uterine cancer was diagnosed recently with Dr. De Los Santos with was referred to Dr. Pena of her and referred to [facility] oncology who decided for her best interest to go for radiation and some sort of chemotherapy. Patient has been doing chemotherapy with Dr. Garcia . She goes for intermittent thoracenteses for pleural effusion secondary to malignancy, and the radiologist that had To her catheter is worried that there might be an pneumothorax developing, when they have spoken to the radiologist, it's probably a trapped lung secondary to mind the lung and it was not really expanding displaced with the flu with once was, patient is no more short of breath. It was however the radiologist once her OBSERVED overnight, consult to pulmonary. The pulmonary was notified by the ER physician for this and was recommended to be sent home however with the ER physician and the radiologist they want her observed overnight with imaging studies in the morning. 03/21, CAT scan of the chest was done that shows sensitive no acute pulmonary infiltrate suspicious for metastatic disease, bilateral pleural effusion, 25% left pneumothorax, patient was seen by Dr. Solis cardiovascular surgeon, x- rays this morning showed improvement of the pneumothorax, general surgery did not think this would need to be surgically managed, they feel that the pneumothorax is ex vacuo, patient was requested to ambulate prior to discharge however she does have shortness of breath on exertion, she still requires oxygen which is new, pulse oximetry on room air would be monitored for ambulation. Were going to attempt to discharge patient in the morning instead 03/22: Patient continues to have shortness of breath and when ambulated pulse ox is dropping down to 79. Patient was placed on 5 L and pulse ox dropped down to 89%. She also had to sit down. VQ scan ordered which came back as intermediate probability. Patient started on Lovenox subcu and consult with oncology added. Case is previously been discussed with Dr. Cornelius. Patient complains of feeling tired and that all she wants to do is sleep. Patient has been afebrile, heart rate running in the 80s. No repeat lab work today. Review Of Systems: Constitutional: No fever, no chills, no night sweats. No weight change. No weakness, fatigue or lethargy. No daytime sleepiness. EENT: No headache. No blurred vision or double vision, no loss of vision. No loss of Hearing, no ringing in the ears, no dizziness. No nasal drainage or congestion. No epistaxis. No sore throat. Lungs: Complains of shortness of breath, cough, no sputum production. No wheezing. Cardiovascular: No chest pain, no lower extremity edema. No palpitations. No paroxysmal nocturnal dyspnea. No orthopnea. No lightheadedness or dizziness. No syncopal episodes. Abdominal: No abdominal pain. No nausea, vomiting. No diarrhea. No constipation. No bloody or tarry stools. No loss of appetite. Genitourinary: No dysuria, increased frequency, urgency. No urinary retention. Musculoskeletal: No myalgias. No muscle weakness, no gait dysfunction, no frequent falls. No back pain. No neck pain. Integumentary: No wounds, no lesions. No rash or pruritus. No unusual bruising. No change in hair or nails. Neurologic: No aphasia. No facial droop. No change in mentation. No head injury. No headache. No paralysis. No paresthesia. Psychiatric: No depression. No anxiety. No mood swings. Endocrine: No abnormal blood sugars. No weight change. No excessive sweating or thirst. No cold intolerance. Objective - Vital Signs Vital signs: Vital Signs Temp 97.5 F L 03/22/18 05:52 Pulse 86 03/22/18 11:33 Resp 18 03/22/18 05:52 BP 133/83 03/22/18 05:52 Pulse Ox 85 L 03/22/18 10:52 Intake & Output 03/21/18 03/22/18 03/22/18 18:59 06:59 18:59 Weight 58 kg Other: # Voids 2 1 2 # Bowel Movements 1 - Exam General appearance: Present: cooperative, mild distress, thin - EENT Eyes: Present: anicteric sclerae, PERRLA, dentition normal ENT: Present: hearing grossly normal, NA/AT, normal oropharynx - Neck Neck: Present: normal ROM. Absent: lymphadenopathy, other, rigidity, stridor, thyromegaly - Respiratory Respiratory: bilateral: CTA, diminished, negative: dullness, rales, rhonchi, wheezing - Cardiovascular Rhythm: regular Heart sounds: normal: S1, S2 Abnormal Heart Sounds: Absent: systolic murmur, diastolic murmur, rub, S3 Gallop , S4 Gallop, click, other - Gastrointestinal General gastrointestinal: Present: decreased bowel sounds, soft - Integumentary Integumentary: Present: decreased turgor, normal - Neurologic Neurologic: Present: CNII-XII intact - Musculoskeletal Musculoskeletal: Present: gait normal, generalized weakness, strength equal bilaterally - Psychiatric Psychiatric: Present: A&O x's 3, appropriate affect, intact judgment & insight - Labs CBC & Chem 7: 03/20/18 13:54 03/20/18 13:54 Labs: Microbiology - Last 24 Hours (Table) 03/20/18 10:29 Gram Stain - Preliminary Pleural Fluid Body Fluid Culture - Preliminary Assessment and Plan Plan: 1. Pleural effusion status outpatient based ultrasound guided post thoracentesis, 03/19/2018 possible pneumothorax against trap Lung as patient has shortness of breath on exertion, which is new, home O2 might be needed ambulatory pulse ox requested, appreciate consult from thoracic surgery, no plans for any surgical intervention. Continue Levaquin. 2. Intermediate probability for pulmonary embolism. Patient started on Lovenox 60 mg twice daily and consult with Dr. Cespedes. 3. Acute hypoxic respiratory failure requiring oxygen. Discussed with Dr. Chi with recommendations for home oxygen. 4. Anemia of chronic disease, stable most likely secondary to effect of chemotherapy as well. 5. Advanced stage III uterine cancer with chemotherapy and followed by oncology. 6. Hypertension. Continue Zestril 20 mg daily. 7. Moderate protein calorie malnutrition, continue protein supplementation. 8. GI prophylaxis. Pepcid. 9. DVT prophylaxis. Lovenox. Discharge plan: Most likely return home with [facility] Impression and plan of care have been directed as dictated by the signing physician. Sophie Lopez nurse practitioner acting as scribe for signing physician.
[2018-03-22] MEDS: ENOXAPARIN 60 MG/0.6 ML SYRINGE SQ SCH (20:07)
[2018-03-23] MEDS: MAGNESIUM OXIDE 400 MG TAB PO SCH (08:18)
[2018-03-23] MEDS: LEVOFLOXACIN 250 MG TAB PO SCH (08:18)
[2018-03-23] MEDS: LISINOPRIL 10 MG TAB PO SCH (08:18)
[2018-03-23] MEDS: SODIUM CHLORIDE 0.9% 1,000 ML IV SCH (08:18)
[2018-03-23] MEDS: CALCIUM CARB-VIT D 500MG-200UN 1 EACH TAB PO SCH (08:18)
[2018-03-23] MEDS: ENOXAPARIN 60 MG/0.6 ML SYRINGE SQ SCH ×2 (08:18→21:01)
[2018-03-23] MEDS: predniSONE 10 MG TAB PO SCH ×2 (08:19→21:01)
[2018-03-23] MEDS: BUDESONIDE 0.5 MG/2 ML NEBU INHALATION SCH ×2 (08:49→19:57)
[2018-03-23] MEDS: ALBUTEROL NEBULIZED 2.5 MG/3 ML INHALATION PRN (08:50)
[2018-03-23 10:26] LABS: Anion Gap 6 mmol/L; Blood Urea Nitrogen 25 mg/dL (7-17); Carbon Dioxide 26 mmol/L (22-30); Chloride 110 mmol/L (98-107); Glucose 166 mg/dL (74-99); Potassium 3.8 mmol/L (3.5-5.1); Sodium 142 mmol/L (137-145)
[2018-03-23] MEDS: MULTIVITAMINS, THERA 1 EACH TAB PO SCH (11:23)
--- NOTE | 2018-03-23 12:45 | CT ---
EXAMINATION TYPE: CT angio chest DATE OF EXAM: 03/23/2018 COMPARISON: CT chest from 3 days ago. HISTORY: Probability of PE on VQ scan CT DLP: 317.8 mGycm. Automated Exposure Control for Dose Reduction was Utilized. CONTRAST: CTA scan of the thorax is performed with IV Contrast, patient injected with 100, wasted 40 ml mL of I sovue 370, pulmonary embolism protocol. MIP Images are created on CT scanner and reviewed. FINDINGS: LUNGS: There is increased now moderate size right pleural effusion. There is persistent small size le ft pleural effusion. There is associated bibasilar compressive atelectasis. Small pneumothorax left l kushal base laterally remains present unchanged in size from prior. There is worsening multifocal reticu lonodular infiltrates bilaterally. MEDIASTINUM: There is satisfactory enhancement of the pulmonary artery and its branches, there is no CT evidence for pulmonary embolism. There are persistent prominent mediastinal lymph nodes. No ca rdiomegaly or pericardial effusion is seen. There is stable right subclavian Mediport catheter. Enlar ged pulmonary artery is redemonstrated. OTHER: Exaggerated thoracic kyphosis is noted. IMPRESSION: 1. No CT evidence for acute pulmonary embolism. 2. Worsening moderate size right pleural effusion. Stable small size left pleural effusion. Worsening bilateral reticulonodular infiltrates suspicious for multifocal pneumonia on background metastatic d isease.
--- NOTE | 2018-03-23 13:21 | P.CONS ---
History of Present Illness - Reason for Consult Consult date: 03/23/18 Shortness of breath, possible PE, metastatic endocervical cancer - History of Present Illness Ms. Puente is a 72 yr old female pt of Dr. Garcia who initially presented to PCP Dr. De Los Santos in Mar 2017 with c/o frequent UTI' s and lower pelvic pressure, PAP was reported "abnormal", referred to Dr. Pena for cervial, endocervix and endometrium biopsies, all revealed adenocarcinoma. Pt referred to [facility] Dr. Maral Reyes. On evaluation it was concerning that pt had suspect right pelvic side wall involvement, staged III-B. Recommendation was to have to treat with concurrent Radiation/Chemotherapy, she completed weekly cisplatin and concurrent radiation in early 06/17. Unfortunately she developed metastatic disease with malignant pleural effusion in 08/15. The patient was then treated with chemotherapy, which she completed about 2 months ago. I do not have the details of her regimen currently. CAT scans in 12/15 had shown stable disease with no recurrence of effusion. However the patient started complaining of some increased shortness of breath in late . Computed tomography scan chest on 03/04/18 showed interval development of bilateral pleural effusions that were comparatively small. The patient has known bilateral nodular lung metastasis, which are also observed. The patient developed progressive shortness of breath due to which she was sent in for an elective thoracentesis on 03/20/18. She had 400 mL drained, but subsequently developed pneumothorax leading to admission. The patient was evaluated by thoracic surgery and was not felt to need surgical intervention. However the patient remained short of breath, with some worsening yesterday, especially on exertion. She had a V/Q scan done, which showed intermediate probability for pulmonary embolism. The body of the report however mentioned diffuse ventilation abnormality, with no perfusion defects. The pt Was started on Lovenox and consult placed for further evaluation and recommendations Review of Systems Constitutional: Reports weakness Eyes: denies blurred vision, denies pain Ears: deny: decreased hearing, ear discharge, earache, tinnitus Ears, nose, mouth and throat: Denies headache, Denies sore throat Cardiovascular: Reports dyspnea on exertion Respiratory: Reports cough, Reports dyspnea Gastrointestinal: Denies abdominal pain, Denies diarrhea, Denies nausea, Denies vomiting Genitourinary: Denies dysuria, Denies hematuria Menstruation: Reports postmenopausal Musculoskeletal: Reports muscle weakness Integumentary: Denies pruritus, Denies rash Neurological: Reports weakness Psychiatric: Denies anxiety, Denies depression Endocrine: Reports fatigue Hematologic/Lymphatic: Reports as per HPI Past Medical History Past Medical History: Cancer, Hypertension Additional Past Medical History / Comment(s): Cervical Cancer Stage 3 History of Any Multi-Drug Resistant Organisms: None Reported Past Surgical History: Cholecystectomy, Hernia Repair Additional Past Surgical History / Comment(s): umbilical hernia repair,. previous thoracentesis July 2017 of 1.7 L of straw-colored fluid removed Past Anesthesia/Blood Transfusion Reactions: No Reported Reaction Past Psychological History: No Psychological Hx Reported Smoking Status: Never smoker Past Alcohol Use History: None Reported Past Drug Use History: None Reported - Past Family History Sister(s) Family Medical History: Cancer Additional Family Medical History / Comment(s): Maternal grandmother breast cancer, maternal grandfather colon cancer Father Additional Family Medical History / Comment(s): Heart disease Medications and Allergies Home Medications Medication Instructions Recorded Confirmed Type Calcium Carbonate/Vitamin D3 1 tab PO DAILY 06/03/17 03/20/18 History [Calcium 600-Vit D3 400 Caplet] Loperamide [Imodium] 2 mg PO QID PRN 06/03/17 03/20/18 History Multivitamins, Thera [Multivitamin 1 tab PO DAILY 06/03/17 03/20/18 History (formulary)] Magnesium Oxide [Mag-Ox] 400 mg PO DAILY #30 tablet 06/06/17 03/20/18 Rx Levofloxacin [Levaquin] 500 mg PO DAILY 03/18/18 03/20/18 History predniSONE 10 mg PO BID 03/18/18 03/20/18 History Gabapentin [Neurontin] 100 mg PO TID PRN 03/20/18 03/20/18 History Lisinopril [Zestril] 10 mg PO DAILY #0 03/21/18 03/20/18 Rx Aspirin EC [Ecotrin Low Dose] 81 mg PO DAILY #30 tablet. 03/22/18 Rx Allergies Allergy/AdvReac Type Severity Reaction Status Date / Time Penicillins Allergy Rash/Hives Verified 03/20/18 12:41 Physical Exam Vitals: Vital Signs Temp Pulse Pulse Resp BP Pulse Ox 03/23/18 09:02 83 03/23/18 08:50 80 03/23/18 07:00 97.4 F L 71 16 139/69 93 L 03/22/18 21:35 97.2 F L 88 17 114/70 98 03/22/18 15:00 98.5 F 97 17 137/65 99 Intake and Output 03/22/18 03/23/18 03/23/18 22:59 06:59 14:59 Other: # Voids 1 2 - Constitutional General appearance: mild distress - EENT Eyes: EOMI, PERRLA ENT: hearing grossly normal, normal oropharynx - Neck Neck: no lymphadenopathy - Respiratory Respiratory: left: diminished, dullness, bilateral: prolonged expiration - Cardiovascular Rhythm: regular Heart sounds: normal: S1, S2 - Gastrointestinal General gastrointestinal: normal bowel sounds, soft - Integumentary Integumentary: normal - Neurologic Neurologic: CNII-XII intact - Musculoskeletal Musculoskeletal: generalized weakness, strength equal bilaterally - Psychiatric Psychiatric: A&O x's 3, appropriate affect Results CBC & Chem 7: 03/20/18 13:54 03/23/18 09:45 Labs: Abnormal Lab Results - Last 24 Hours (Table) 03/23/18 Range/Units 09:45 Chloride 110 H (98-107) mmol/L BUN 25 H (7-17) mg/dL Glucose 166 H (74-99) mg/dL Microbiology - Last 24 Hours (Table) 03/20/18 10:29 Gram Stain - Preliminary Pleural Fluid Body Fluid Culture - Preliminary Comments: VQ scan report reviewed Chest x-ray: report reviewed CT scan - chest: report reviewed Assessment and Plan (1) Suspected pulmonary embolism Narrative/Plan: The patient was initially admitted for acute on chronic respiratory failure due to a pneumothorax post drainage of her left-sided pleural effusion. V/Q scan was performed because of decline in respiratory status after some initial improvement. This was read as intermediate probability, and the patient was placed on Lovenox. Case was discussed in detail with the admitting service. No the findings fall in the intermediate category, the V/Q scan does not show any focal perfusion defect, which would be expected with a PE. There is diffuse ventilation abnormality, due to her underlying lung disease. Therefore , in actuality, the V/Q scan has no suspicion for PE. The patient's creatinine is normal. Therefore it was decided to do a CT angiogram. I will also check lower extremity Dopplers. These are negative, then full dose Lovenox can be discontinued Current Visit: Yes Status: Acute Code(s): R09.89 - OTH SYMPTOMS AND SIGNS INVOLVING THE CIRC AND RESP SYSTEMS SNOMED Code(s): 447966069 (2) Endometrial/uterine adenocarcinoma Narrative/Plan: The patient actually has adenocarcinoma involving the lower uterus and upper cervix. Her present presentation appears to be suggestive of progressive disease. He is to follow-up with Dr. Garcia in the outpatient setting for treatment discussions Current Visit: No Status: Acute Code(s): C54.9 - MALIGNANT NEOPLASM OF CORPUS UTERI, UNSPECIFIED SNOMED Code(s): 762043447 (3) Acute respiratory failure Narrative/Plan: This was likely initiated a progressive left-sided pleural effusion, and subsequently developed pneumothorax. Patient was not felt to require surgical intervention. Await CTA to rule out PE. This would also help to evaluate for other pathologies. Defer to the admitting service and pulmonary medicine for continued management Current Visit: Yes Status: Acute Code(s): J96.00 - ACUTE RESPIRATORY FAILURE , UNSP W HYPOXIA OR HYPERCAPNIA SNOMED Code(s): 13274347
--- NOTE | 2018-03-23 17:06 | P.PN ---
Subjective Progress Note Date: 03/23/18 72-year-old female one of Dr. De Los Santos with patient with past medical history of cervical/uterine cancer was diagnosed recently with Dr. De Los Santos with was referred to Dr. Pena of her and referred to [facility] onc[facility] who decided for her best interest to go for radiation and some sort of chemotherapy. Patient has been doing chemotherapy with Dr. Garcia . She goes for intermittent thoracenteses for pleural effusion secondary to malignancy, and the radiologist that had To her catheter is worried that there might be an pneumothorax developing, when they have spoken to the radiologist, it's probably a trapped lung secondary to mind the lung and it was not really expanding displaced with the flu with once was, patient is no more short of breath. It was however the radiologist once her OBSERVED overnight, consult to pulmonary. The pulmonary was notified by the ER physician for this and was recommended to be sent home however with the ER physician and the radiologist they want her observed overnight with imaging studies in the morning. 03/22, CAT scan of the chest was done that shows sensitive no acute pulmonary infiltrate suspicious for metastatic disease, bilateral pleural effusion, 25% left pneumothorax, patient was seen by Dr. Solis cardiovascular surgeon, x- rays this morning showed improvement of the pneumothorax, general surgery did not think this would need to be surgically managed, they feel that the pneumothorax is ex vacuo, patient was requested to ambulate prior to discharge however she does have shortness of breath on exertion, she still requires oxygen which is new, pulse oximetry on room air would be monitored for ambulation. Were going to attempt to discharge patient in the morning instead 03/23: Patient is sitting up in bed complaining of shortness of breath and pressure to chest. Due to the pulmonary perfusion imaging showing intermediate probability for pulmonary embolism a CTA will be ordered. Patient continues to complain of feeling tired and just wanting to sleep. Patient has been afebrile and vital signs have been stable. Review Of Systems: Constitutional: Reports fatigue No fever, no chills, no night sweats. No weight change. No weakness or lethargy. No daytime sleepiness. EENT: No headache. No blurred vision or double vision, no loss of vision. No loss of Hearing, no ringing in the ears, no dizziness. No nasal drainage or congestion. No epistaxis. No sore throat. Lungs: Complains of shortness of breath, cough, no sputum production. No wheezing. Cardiovascular: Reports chest discomfort, no lower extremity edema. No palpitations. No paroxysmal nocturnal dyspnea. No orthopnea. No lightheadedness or dizziness. No syncopal episodes. Abdominal: No abdominal pain. No nausea, vomiting. No diarrhea. No constipation. No bloody or tarry stools. No loss of appetite. Genitourinary: No dysuria, increased frequency, urgency. No urinary retention. Musculoskeletal: No myalgias. No muscle weakness, no gait dysfunction, no frequent falls. No back pain. No neck pain. Integumentary: No wounds, no lesions. No rash or pruritus. No unusual bruising. No change in hair or nails. Neurologic: No aphasia. No facial droop. No change in mentation. No head injury. No headache. No paralysis. No paresthesia. Psychiatric: No depression. No anxiety. No mood swings. Objective - Vital Signs Vital signs: Vital Signs Temp 97.8 F 03/23/18 15:00 Pulse 94 03/23/18 15:00 Resp 16 03/23/18 15:00 BP 115/59 03/23/18 15:00 Pulse Ox 96 03/23/18 15:00 Intake & Output 03/22/18 03/23/18 03/23/18 18:59 06:59 18:59 Other: # Voids 2 2 2 # Bowel Movements 0 - Constitutional General appearance: Present: cooperative, mild distress, thin - EENT Eyes: Present: EOMI, PERRLA ENT: Present: hearing grossly normal, NA/AT, normal oropharynx - Neck Neck: Present: normal ROM. Absent: lymphadenopathy, rigidity - Respiratory Respiratory: bilateral: CTA, diminished, negative: dullness, rales, rhonchi, wheezing - Cardiovascular Rhythm: regular Heart sounds: normal: S1, S2 Abnormal Heart Sounds: Absent: systolic murmur, diastolic murmur, rub, S3 Gallop , S4 Gallop, click, other - Gastrointestinal General gastrointestinal: Present: normal bowel sounds, soft. Absent: tenderness - Integumentary Integumentary: Present: decreased turgor, pale - Neurologic Neurologic: Present: CNII-XII intact - Musculoskeletal Musculoskeletal: Present: gait normal, generalized weakness, strength equal bilaterally - Psychiatric Psychiatric: Present: A&O x's 3, appropriate affect, intact judgment & insight - Labs CBC & Chem 7: 03/20/18 13:54 03/23/18 09:45 Labs: Abnormal Lab Results - Last 24 Hours (Table) 03/23/18 Range/Units 09:45 Chloride 110 H (98-107) mmol/L BUN 25 H (7-17) mg/dL Glucose 166 H (74-99) mg/dL Microbiology - Last 24 Hours (Table) 03/20/18 10:29 Gram Stain - Preliminary Pleural Fluid Body Fluid Culture - Preliminary Assessment and Plan Plan: 1. Pleural effusion status outpatient based ultrasound guided post thoracentesis, 03/19/2018 possible pneumothorax against trap Lung as patient has shortness of breath on exertion, which is new, home O2 might be needed ambulatory pulse ox requested, appreciate consult from thoracic surgery, no plans for any surgical intervention. Continue Levaquin. 2. Intermediate probability for pulmonary embolism. Dr. Cespedes consult appreciated. CTA shows no evidence of acute pulmonary embolism, worsening moderate size right pleural effusion, stable small sized left pleural effusion, worsening bilateral reticulonodular infiltrates suspicious for multifocal pneumonia on background metastatic disease 3. Acute hypoxic respiratory failure requiring oxygen. Discussed with Dr. Chi with recommendations for home oxygen. 4. Anemia of chronic disease, stable most likely secondary to effect of chemotherapy as well. 5. Advanced stage III uterine cancer with chemotherapy and followed by oncology. 6. Hypertension. Continue Zestril 20 mg daily 7. Moderate protein calorie malnutrition, continue protein supplementation. obtain pre-albumin 8. DVT left leg: Continue with Lovenox 60 mg every 12 hours 9. Debility. Consult PT/OT obtain prealbumin human, continue protein supplementation 10. GI prophylaxis. Pepcid. 11. DVT prophylaxis. Lovenox. Discharge plan: Most likely return home with [facility] Impression and plan of care have been directed as dictated by the signing physician. Aura Cain nurse practitioner acting as scribe for signing physician.
--- NOTE | 2018-03-23 17:33 | US ---
EXAMINATION TYPE: US venous doppler duplex LE DATE OF EXAM: 03/23/2018 4:43 PM COMPARISON: NONE CLINICAL HISTORY: Suspected pulmonary embolism. SIDE PERFORMED: Bilateral TECHNIQUE: The lower extremity deep venous system is examined utilizing real time linear array sonog kole with graded compression, doppler sonography and color-flow sonography. VESSELS IMAGED: External Iliac Vein (EIV) Common Femoral Vein Deep Femoral Vein Greater Saphenous Vein * Femoral Vein Popliteal Vein Small Saphenous Vein * Proximal Calf Veins (* superficial vessels) Right Leg: Negative for DVT Left Leg: Positive for DVT from the left mid femoral vein to the proximal calf veins Grayscale, color doppler, spectral doppler imaging performed of the deep veins of the right lower ext remity. There is normal flow, compressibility, vascular waveforms. IMPRESSION: Beginning mid aspect left superficial femoral vein there is hyperechoic material expandi ng lumen with noncompressibility and absent color flow this extends below knee through popliteal vein consistent with acute DVT.
[2018-03-23] MEDS: DOCUSATE 100 MG CAP PO SCH (21:01)
[2018-03-24] MEDS: SODIUM CHLORIDE 0.9% 1,000 ML IV SCH ×2 (03:38→20:35)
[2018-03-24] MEDS: ALBUTEROL NEBULIZED 2.5 MG/3 ML INHALATION PRN (07:13)
[2018-03-24] MEDS: BUDESONIDE 0.5 MG/2 ML NEBU INHALATION SCH ×2 (07:13→20:18)
[2018-03-24] MEDS: CALCIUM CARB-VIT D 500MG-200UN 1 EACH TAB PO SCH (07:35)
[2018-03-24] MEDS: ENOXAPARIN 60 MG/0.6 ML SYRINGE SQ SCH ×2 (07:35→20:29)
[2018-03-24] MEDS: LEVOFLOXACIN 250 MG TAB PO SCH (07:35)
[2018-03-24] MEDS: predniSONE 10 MG TAB PO SCH ×2 (07:35→20:29)
[2018-03-24] MEDS: LISINOPRIL 10 MG TAB PO SCH (07:35)
[2018-03-24] MEDS: DOCUSATE 100 MG CAP PO SCH ×2 (07:35→20:29)
[2018-03-24] MEDS: MAGNESIUM OXIDE 400 MG TAB PO SCH (07:36)
[2018-03-24 09:10] LABS: Anisocytosis Slight; Basophils % (A) 0 %; Eosinophils # (A) 0.1 k/uL (0-0.7); Eosinophils % (A) 2 %; HCT 35.5 % (34.0-46.0); HGB 10.8 gm/dL (11.4-16.0); Hypochromasia Marked; Lymphocytes # (A) 0.3 k/uL (1.0-4.8); Lymphocytes % (A) 4 %; MCH 32.3 pg (25.0-35.0); MCHC 30.5 g/dL (31.0-37.0); MCV 106.1 fL (80.0-100.0); Macrocytosis Marked; Mean Platelet Volume 7.3; Monocytes # (A) 0.4 k/uL (0-1.0); Monocytes % (A) 5 %; Neutrophils # (A) 7.1 k/uL (1.3-7.7); Neutrophils % (A) 88 %; Poikilocytosis Slight; RBC 3.34 m/uL (3.80-5.40); RDW 16.9 % (11.5-15.5)
[2018-03-24 09:17] LABS: Platelet Count 95 k/uL (150-450)
[2018-03-24 09:25] LABS: ALT 21 U/L (9-52); AST 19 U/L (14-36); Albumin 3.2 g/dL (3.5-5.0); Alkaline Phosphatase 107 U/L (38-126); Anion Gap 6 mmol/L; Blood Urea Nitrogen 25 mg/dL (7-17); Calcium 9.1 mg/dL (8.4-10.2); Carbon Dioxide 31 mmol/L (22-30); Chloride 108 mmol/L (98-107); Glucose 133 mg/dL (74-99); Potassium 3.9 mmol/L (3.5-5.1); Sodium 145 mmol/L (137-145); Total Bilirubin 0.5 mg/dL (0.2-1.3); Total Protein 6.6 g/dL (6.3-8.2)
[2018-03-24] MEDS: MULTIVITAMINS, THERA 1 EACH TAB PO SCH (12:04)
[2018-03-24 12:52] LABS: Toxic Granulation Present
--- NOTE | 2018-03-24 16:16 | P.PN ---
Subjective Progress Note Date: 03/24/18 72-year-old female one of Dr. De Los Santos with patient with past medical history of cervical/uterine cancer was diagnosed recently with Dr. De Los Santos with was referred to Dr. Pena of her and referred to [facility] oncology who decided for her best interest to go for radiation and some sort of chemotherapy. Patient has been doing chemotherapy with Dr. Garcia . She goes for intermittent thoracenteses for pleural effusion secondary to malignancy, and the radiologist that had To her catheter is worried that there might be an pneumothorax developing, when they have spoken to the radiologist, it's probably a trapped lung secondary to mind the lung and it was not really expanding displaced with the flu with once was, patient is no more short of breath. It was however the radiologist once her OBSERVED overnight, consult to pulmonary. The pulmonary was notified by the ER physician for this and was recommended to be sent home however with the ER physician and the radiologist they want her observed overnight with imaging studies in the morning. 03/22, CAT scan of the chest was done that shows sensitive no acute pulmonary infiltrate suspicious for metastatic disease, bilateral pleural effusion, 25% left pneumothorax, patient was seen by Dr. Solis cardiovascular surgeon, x- rays this morning showed improvement of the pneumothorax, general surgery did not think this would need to be surgically managed, they feel that the pneumothorax is ex vacuo, patient was requested to ambulate prior to discharge however she does have shortness of breath on exertion, she still requires oxygen which is new, pulse oximetry on room air would be monitored for ambulation. Were going to attempt to discharge patient in the morning instead 03/23: Patient is sitting up in bed complaining of shortness of breath and pressure to chest. Due to the pulmonary perfusion imaging showing intermediate probability for pulmonary embolism a CTA will be ordered. Patient continues to complain of feeling tired and just wanting to sleep. Patient has been afebrile and vital signs have been stable. 03/24: Patient is sitting up in bed complaining of some shortness of breath. She does feel that she is a little bit better today than yesterday. Venous Doppler was positive for a DVT in the left leg we will continue with the Lovenox. Did discuss with patient changed to hospice due to the progression of her cancer and also the need for oxygen at all times. Patient would like to think about this prior to making any decisions. Vital signs remained stable patient has been afebrile. W BC 8, hemoglobin 10.8. Review Of Systems: Constitutional: Reports fatigue No fever, no chills, no night sweats. No weight change. No weakness or lethargy. No daytime sleepiness. EENT: No headache. No blurred vision or double vision, no loss of vision. No loss of Hearing, no ringing in the ears, no dizziness. No nasal drainage or congestion. No epistaxis. No sore throat. Lungs: Complains of shortness of breath, cough, no sputum production. No wheezing. Cardiovascular: Reports chest discomfort, no lower extremity edema. No palpitations. No paroxysmal nocturnal dyspnea. No orthopnea. No lightheadedness or dizziness. No syncopal episodes. Abdominal: No abdominal pain. No nausea, vomiting. No diarrhea. No constipation. No bloody or tarry stools. No loss of appetite. Genitourinary: No dysuria, increased frequency, urgency. No urinary retention. Musculoskeletal: No myalgias. No muscle weakness, no gait dysfunction, no frequent falls. No back pain. No neck pain. Integumentary: No wounds, no lesions. No rash or pruritus. No unusual bruising. No change in hair or nails. Neurologic: No aphasia. No facial droop. No change in mentation. No head injury. No headache. No paralysis. No paresthesia. Psychiatric: No depression. No anxiety. No mood swings. Objective - Vital Signs Vital signs: Vital Signs Temp 96.9 F L 03/24/18 14:55 Pulse 100 03/24/18 14:55 Resp 16 03/24/18 15:09 BP 118/59 03/24/18 14:55 Pulse Ox 98 03/24/18 14:55 Intake & Output 03/23/18 03/24/18 03/24/18 18:59 06:59 18:59 Other: Voiding Method Bedside Commode # Voids 2 2 3 # Bowel Movements 0 1 - Constitutional General appearance: Present: average body habitus, cooperative, no acute distress - EENT Eyes: Present: anicteric sclerae, EOMI, PERRLA ENT: Present: hearing grossly normal, NA/AT - Neck Neck: Present: normal ROM. Absent: lymphadenopathy, rigidity - Respiratory Respiratory: bilateral: CTA, diminished, negative: dullness, rales, rhonchi, wheezing - Cardiovascular Rhythm: regular Heart sounds: normal: S1, S2 Abnormal Heart Sounds: Absent: systolic murmur, diastolic murmur, rub, S3 Gallop , S4 Gallop, click, other - Gastrointestinal General gastrointestinal: Present: normal bowel sounds, soft. Absent: organomegaly, tenderness - Integumentary Integumentary: Present: decreased turgor, pale - Neurologic Neurologic: Present: CNII-XII intact - Musculoskeletal Musculoskeletal: Present: gait normal, generalized weakness, strength equal bilaterally - Psychiatric Psychiatric: Present: A&O x's 3, appropriate affect, intact judgment & insight - Labs CBC & Chem 7: 03/24/18 08:51 03/24/18 08:51 Labs: Abnormal Lab Results - Last 24 Hours (Table) 03/23/18 03/24/18 03/24/18 Range/Units 09:45 08:51 08:51 RBC 3.34 L (3.80-5.40) m/uL Hgb 10.8 L (11.4-16.0) gm/dL MCV 106.1 H (80.0-100.0) fL MCHC 30.5 L (31.0-37.0) g/dL RDW 16.9 H (11.5-15.5) % Plt Count 95 L (150-450) k/uL Lymphocytes # 0.3 L (1.0-4.8) k/uL Chloride 108 H (98-107) mmol/L Carbon Dioxide 31 H (22-30) mmol/L BUN 25 H (7-17) mg/dL Glucose 133 H (74-99) mg/dL Albumin 3.2 L (3.5-5.0) g/dL Prealbumin 17.0 L (18.0-42.0) mg/dL Microbiology - Last 24 Hours (Table) 03/20/18 10:29 Gram Stain - Final Pleural Fluid Body Fluid Culture - Final Assessment and Plan Plan: 1. Pleural effusion status outpatient based ultrasound guided post thoracentesis, 03/19/2018 possible pneumothorax against trap Lung as patient has shortness of breath on exertion, which is new, home O2 might be needed ambulatory pulse ox requested, appreciate consult from thoracic surgery, no plans for any surgical intervention. Continue Levaquin. Discussed with patient's hospice. 2. Intermediate probability for pulmonary embolism. Dr. Cespedes consult appreciated. CTA shows no evidence of acute pulmonary embolism, worsening moderate size right pleural effusion, stable small sized left pleural effusion, worsening bilateral reticulonodular infiltrates suspicious for multifocal pneumonia on background metastatic disease 3. Acute hypoxic respiratory failure requiring oxygen. Discussed with Dr. Chi with recommendations for home oxygen. 4. Anemia of chronic disease, stable most likely secondary to effect of chemotherapy as well. 5. Advanced stage III uterine cancer with chemotherapy and followed by oncology. 6. Hypertension. Continue Zestril 20 mg daily 7. Moderate protein calorie malnutrition, continue protein supplementation. obtain pre-albumin 8. DVT left leg: Continue with Lovenox 60 mg every 12 hours 9. Debility. Consult PT/OT obtain prealbumin human, continue protein supplementation 10. GI prophylaxis. Pepcid. 11. DVT prophylaxis. Lovenox. Discharge plan: Most likely return home with [facility] Impression and plan of care have been directed as dictated by the signing physician. Aura Cain nurse practitioner acting as scribe for signing physician.
[2018-03-25 07:31] VITALS: TEMP 98.6
[2018-03-25] MEDS: CALCIUM CARB-VIT D 500MG-200UN 1 EACH TAB PO SCH (07:48)
[2018-03-25] MEDS: DOCUSATE 100 MG CAP PO SCH (07:48)
[2018-03-25] MEDS: MAGNESIUM OXIDE 400 MG TAB PO SCH (07:48)
[2018-03-25] MEDS: LISINOPRIL 10 MG TAB PO SCH (07:48)
[2018-03-25] MEDS: predniSONE 10 MG TAB PO SCH (07:48)
[2018-03-25] MEDS: LEVOFLOXACIN 250 MG TAB PO SCH (07:48)
[2018-03-25] MEDS: MULTIVITAMINS, THERA 1 EACH TAB PO SCH (07:48)
[2018-03-25] MEDS: ENOXAPARIN 60 MG/0.6 ML SYRINGE SQ SCH (07:49)
[2018-03-25] MEDS: BUDESONIDE 0.5 MG/2 ML NEBU INHALATION SCH (09:11)
[2018-03-25 09:36] LABS: Anisocytosis Slight; Basophils % (A) 0 %; Eosinophils # (A) 0.2 k/uL (0-0.7); Eosinophils % (A) 2 %; HCT 30.9 % (34.0-46.0); HGB 9.9 gm/dL (11.4-16.0); Hypochromasia Moderate; Lymphocytes # (A) 0.4 k/uL (1.0-4.8); Lymphocytes % (A) 4 %; MCH 33.2 pg (25.0-35.0); MCHC 32.2 g/dL (31.0-37.0); MCV 103.2 fL (80.0-100.0); Macrocytosis Moderate; Mean Platelet Volume 7.2; Monocytes # (A) 0.5 k/uL (0-1.0); Monocytes % (A) 6 %; Neutrophils # (A) 7.2 k/uL (1.3-7.7); Neutrophils % (A) 87 %; Poikilocytosis Slight; RBC 2.99 m/uL (3.80-5.40); RDW 16.9 % (11.5-15.5); WBC 8.4 k/uL (3.8-10.6)
[2018-03-25 09:39] LABS: Platelet Count 93 k/uL (150-450)
[2018-03-25 10:00] LABS: ALT 20 U/L (9-52); AST 17 U/L (14-36); Albumin 2.8 g/dL (3.5-5.0); Alkaline Phosphatase 91 U/L (38-126); Anion Gap 4 mmol/L; Blood Urea Nitrogen 26 mg/dL (7-17); Calcium 9.1 mg/dL (8.4-10.2); Carbon Dioxide 33 mmol/L (22-30); Chloride 107 mmol/L (98-107); Glucose 118 mg/dL (74-99); Potassium 4.1 mmol/L (3.5-5.1); Sodium 144 mmol/L (137-145); Total Bilirubin 0.4 mg/dL (0.2-1.3); Total Protein 5.8 g/dL (6.3-8.2)
--- NOTE | 2018-03-25 13:49 | P.PN ---
Subjective Progress Note Date: 03/25/18 Principal diagnosis: Metastatic Endometrial Cancer Kaitlynn is resting in bed with family at bedside. She is tearful and has questions about what the plan is. She does not feel better since hospitalization. Objective - Vital Signs Vital signs: Vital Signs Temp 98.6 F 03/25/18 06:55 Pulse 89 03/25/18 06:50 Resp 16 03/25/18 06:50 BP 132/81 03/25/18 06:50 Pulse Ox 91 L 03/25/18 09:10 Intake & Output 03/24/18 03/25/18 03/25/18 18:59 06:59 18:59 Intake Total 550 Balance 550 Intake: Oral 550 Other: Voiding Method Bedside Commode Bedside Commode # Voids 1 1 1 # Bowel Movements 1 2 - Constitutional General appearance: Present: mild distress - EENT Eyes: Present: dentition normal ENT: Present: hard of hearing, NA/AT, normal oropharynx - Neck Neck: Present: normal ROM - Respiratory Respiratory: bilateral: diminished (Increased respiratory effort), wheezing - Cardiovascular Rhythm: regular Heart sounds: normal: S1, S2 - Gastrointestinal General gastrointestinal: Present: normal bowel sounds, soft - Integumentary Integumentary: Present: pale - Neurologic Neurologic Comment(s): No focal defects - Musculoskeletal Musculoskeletal: Present: generalized weakness, strength equal bilaterally - Psychiatric Psychiatric: Present: A&O x's 3, appropriate affect, intact judgment & insight - Labs CBC & Chem 7: 03/25/18 09:08 03/25/18 09:08 Labs: Abnormal Lab Results - Last 24 Hours (Table) 03/25/18 03/25/18 Range/Units 09:08 09:08 RBC 2.99 L (3.80-5.40) m/uL Hgb 9.9 L (11.4-16.0) gm/dL Hct 30.9 L (34.0-46.0) % MCV 103.2 H (80.0-100.0) fL RDW 16.9 H (11.5-15.5) % Plt Count 93 L (150-450) k/uL Lymphocytes # 0.4 L (1.0-4.8) k/uL Carbon Dioxide 33 H (22-30) mmol/L BUN 26 H (7-17) mg/dL Glucose 118 H (74-99) mg/dL Total Protein 5.8 L (6.3-8.2) g/dL Albumin 2.8 L (3.5-5.0) g/dL Microbiology - Last 24 Hours (Table) 03/20/18 10:29 Gram Stain - Final Pleural Fluid Body Fluid Culture - Final Assessment and Plan Plan: Assessment and Plan (1) Suspected pulmonary embolism Narrative/Plan: - Suspicion for PE via VQ scan. CTA negative for Pulmonary Embolism, although on further work-up LE Doppler positive for DVT. - COntinue ANticoagulation at this time for LE DVT - If patient goes home with Palliative or homecare may switch to PO ac therapy Current Visit: Yes Status: Acute Code(s): R09.89 - OTH SYMPTOMS AND SIGNS INVOLVING THE CIRC AND RESP SYSTEMS SNOMED Code(s): 439813982 (2) Endometrial/uterine adenocarcinoma Narrative/Plan: - The patient actually has adenocarcinoma involving the lower uterus and upper cervix. Her present presentation appears to be suggestive of progressive disease. - At this time she is not a candidate for therapy given her current performance status. A long discussion with patient and family today regarding goals of care, CPR status, options of palliative versus hospice care, which are resonable given her overall metastatic, likely progressive, picture. THey are discussing amongst family further and will let us know their descision Current Visit: No Status: Acute Code(s): C54.9 - MALIGNANT NEOPLASM OF CORPUS UTERI, UNSPECIFIED SNOMED Code(s): 057632027 (3) Acute respiratory failure Narrative/Plan: - This was likely initiated a progressive left-sided pleural effusion, and subsequently developed pneumothorax. - Patient was not felt to require surgical intervention. - Defer to the admitting service and pulmonary medicine for continued management - This has not improved since admission and unable to walk from bed [place] [facility] Visit: Yes Status: Acute Code(s): J96.00 - ACUTE RESPIRATORY FAILURE , UNSP W HYPOXIA OR HYPERCAPNIA SNOMED Code(s): 15811082 Plan: - Not currently a candidate for further systemic cancer therapy - Greater than 25 minutes spent face to face discussing goals of care and options of palliative versus hospice. - Hospice info meeting scheduled.
[2018-03-25 14:16] VITALS: PULSE 110
[2018-03-25 14:21] VITALS: BP 114/60; RESP 20
[2018-03-25] MEDS: SODIUM CHLORIDE 0.9% 1,000 ML IV SCH (17:01)
[2018-03-26] MEDS ORDERED: LEVOFLOXACIN 500 MG TAB PO SCH (09:00)
--- NOTE | 2018-03-26 09:00 | P.DS ---
Providers Date of admission: 03/20/18 14:55 Expected date of discharge: 03/25/18 Attending physician: Renee Sheppard Consults: 03/20/18 17:41 Consult Physician Urgent Consulting Provider: Bernard Solis Consult Reason/Comments: Possible Left side pneumothorax Do you want consulting provider notified?: Yes Primary care physician: Yane Samaritan Hospital Course: 72-year-old female one of Dr. De Los Santos with patient with past medical history of cervical/uterine cancer was diagnosed recently with Dr. De Los Santos with was referred to Dr. Pena of her and referred to [facility] [facility] who decided for her best interest to go for radiation and some sort of chemotherapy. Patient has been doing chemotherapy with Dr. Garcia . She goes for intermittent thoracenteses for pleural effusion secondary to malignancy, and the radiologist that had To her catheter is worried that there might be an pneumothorax developing, when they have spoken to the radiologist, it's probably a trapped lung secondary to mind the lung and it was not really expanding displaced with the flu with once was, patient is no more short of breath. It was however the radiologist once her OBSERVED overnight, consult to pulmonary. The pulmonary was notified by the ER physician for this and was recommended to be sent home however with the ER physician and the radiologist they want her observed overnight with imaging studies in the morning. 03/21, CAT scan of the chest was done that shows sensitive no acute pulmonary infiltrate suspicious for metastatic disease, bilateral pleural effusion, 25% left pneumothorax, patient was seen by Dr. Solis cardiovascular surgeon, x- rays this morning showed improvement of the pneumothorax, general surgery did not think this would need to be surgically managed, they feel that the pneumothorax is ex vacuo, patient was requested to ambulate prior to discharge however she does have shortness of breath on exertion, she still requires oxygen which is new, pulse oximetry on room air would be monitored for ambulation. Were going to attempt to discharge patient in the morning instead 03/22, CAT scan of the chest was done that shows sensitive no acute pulmonary infiltrate suspicious for metastatic disease, bilateral pleural effusion, 25% left pneumothorax, patient was seen by Dr. Solis cardiovascular surgeon, x- rays this morning showed improvement of the pneumothorax, general surgery did not think this would need to be surgically managed, they feel that the pneumothorax is ex vacuo, patient was requested to ambulate prior to discharge however she does have shortness of breath on exertion, she still requires oxygen which is new, pulse oximetry on room air would be monitored for ambulation. Were going to attempt to discharge patient in the morning instead 03/23: Patient is sitting up in bed complaining of shortness of breath and pressure to chest. Due to the pulmonary perfusion imaging showing intermediate probability for pulmonary embolism a CTA will be ordered. Patient continues to complain of feeling tired and just wanting to sleep. Patient has been afebrile and vital signs have been stable. 03/24: Patient is sitting up in bed complaining of some shortness of breath. She does feel that she is a little bit better today than yesterday. Venous Doppler was positive for a DVT in the left leg we will continue with the Lovenox. Did discuss with patient changed to hospice due to the progression of her cancer and also the need for oxygen at all times. Patient would like to think about this prior to making any decisions. Vital signs remained stable patient has been afebrile. W BC 8, hemoglobin 10.8. 03/25: Patient has met with hospice and decided to go home with home care. Patient is requiring hospital bed as she requires the head of bed up at 30 secondary to her acute hypoxic respiratory failure. Patient also is set up for home oxygen as her pulse ox is dropping down into the 70s and 80s with minimal activity. Wheelchair and commode chair also ordered for home due to the same. Vital signs have been stable, white count is normal with hemoglobin of 9.9 and platelet count of 93, creatinine 0.58. Patient has been seen by oncology and she is not a candidate for chemotherapy due to current performance status. Patient will be discharged home today in stable condition. Discharge diagnoses: 1. Pleural effusion status outpatient based ultrasound guided post thoracentesis, subsequently developed pneumothorax 2. Acute pulmonary embolism has been ruled out. 3. Acute hypoxic respiratory failure requiring home O2 for chronic hypoxic respiratory failure. 4. Anemia with microcytosis, and thrombocytopenia, chronic hemoglobin is stable. 5. Advanced stage III uterine cancer: Patient is doing chemotherapy with oncology. 6. Hypertension 7. Moderate protein calorie malnutrition, on protein supplementation. 8. Lower extremity DVT Discharge plan: Home with [facility] Impression and plan of care have been directed as dictated by the signing physician. Sophie Lopez nurse practitioner acting as scribe for signing physician. Patient Condition at Discharge: Good Plan - Discharge Summary New Discharge Prescriptions: New Aspirin EC [Ecotrin Low Dose] 81 mg PO DAILY #30 tablet.dr Continue Loperamide [Imodium] 2 mg PO QID PRN PRN Reason: Diarrhea Multivitamins, Thera [Multivitamin (formulary)] 1 tab PO DAILY Calcium Carbonate/Vitamin D3 [Calcium 600-Vit D3 400 Caplet] 1 tab PO DAILY Magnesium Oxide [Mag-Ox] 400 mg PO DAILY #30 tablet predniSONE 10 mg PO BID Levofloxacin [Levaquin] 500 mg PO DAILY Gabapentin [Neurontin] 100 mg PO TID PRN PRN Reason: Pain Changed Lisinopril [Zestril] 10 mg PO DAILY #0 Discharge Medication List Calcium Carbonate/Vitamin D3 [Calcium 600-Vit D3 400 Caplet] 1 tab PO DAILY 08/15 [History] Loperamide [Imodium] 2 mg PO QID PRN 06/03/17 [History] Multivitamins, Thera [Multivitamin (formulary)] 1 tab PO DAILY 06/03/17 [History ] Magnesium Oxide [Mag-Ox] 400 mg PO DAILY #30 tablet 06/06/17 [Rx] Levofloxacin [Levaquin] 500 mg PO DAILY 03/18/18 [History] predniSONE 10 mg PO BID 03/18/18 [History] Gabapentin [Neurontin] 100 mg PO TID PRN 03/20/18 [History] Lisinopril [Zestril] 10 mg PO DAILY #0 03/21/18 [Rx] Aspirin EC [Ecotrin Low Dose] 81 mg PO DAILY #30 tablet. 03/22/18 [Rx] Follow up Appointment(s)/Referral(s): Archie Chi MD [STAFF PHYSICIAN] - 1 Week (Please call the office to set up appt.) Yane De Los Santos MD [Primary Care Provider] - 1 Week (office closed. please call to schedule appointment) Bernard Solis MD [STAFF PHYSICIAN] - 1 Week (office closed. please call to schedule appointment) [facility] Visiting Nurse, [NON-STAFF] - Patient Instructions/Handouts: Traumatic Pneumothorax (DC), Hospice Care (GEN) , Comfort Measures (GEN) Activity/Diet/Wound Care/Special Instructions: Oxygen and Hospital bed supplied by [facility] [phone]. Please call [facility] for delivery of concentrator and hospital bed. Discharge Disposition: HOME WITH HOME HEALTH SERVICES
== END 2018-03-25 18:21 | disposition home health service (06) | DRG 199 ==
LOC: EC 12:00 → 4SSUR 14:55 → 4MS4W 15:44
PROVIDERS: ADMIT Family Medicine; ATTEND Family Medicine
PROC: 0W9B3ZX Drainage of Left Pleural Cavity, Percutaneous Approach, Diagnostic (ICD-10-PCS; principal; 2018-03-20)
DX: J95.811 Postprocedural pneumothorax (principal); J96.21 Acute and chronic respiratory failure with hypoxia; E44.0 Moderate protein-calorie malnutrition; J91.0 Malignant pleural effusion; C78.02 Secondary malignant neoplasm of left lung; C78.01 Secondary malignant neoplasm of right lung; C53.9 Malignant neoplasm of cervix uteri, unspecified; C54.1 Malignant neoplasm of endometrium; D69.6 Thrombocytopenia, unspecified; I10 Essential (primary) hypertension; D63.8 Anemia in other chronic diseases classified elsewhere; Z79.899 Other long term (current) drug therapy; Z79.52 Long term (current) use of systemic steroids; Z88.0 Allergy status to penicillin; Z99.81 Dependence on supplemental oxygen; Z92.21 Personal history of antineoplastic chemotherapy; Z87.440 Personal history of urinary (tract) infections; Z90.49 Acquired absence of other specified parts of digestive tract; Z68.22 Body mass index [BMI] 22.0-22.9, adult; Z80.0 Family history of malignant neoplasm of digestive organs; Z80.3 Family history of malignant neoplasm of breast
CPT/HCPCS: 32555; 71045; 71046; 71250; 71275; 78582; 80048; 80053; 82550; 82553; 84134; 84157; 84484; 85025; 85049; 85610; 85730; 87070; 87205; 88108; 88305; 88341; 88342; 89050; 93005; 93970; 94640; 96361; 96374; 99285